=== PATIENT | female | born 1955 | race Caucasian/White ===

== ENCOUNTER 2018-01-17 06:32 | Outpatient (CLI) | payer MEDICARE ==
[~2018-01-17] VITALS: Ht 157.5 cm; Wt 55.5 kg
--- NOTE | ~2018-01-17 | HEMODYNAMI ---
PATIENT:ALISIA GOMES MEDICAL RECORD: [id number] : 51 [facility] Francisco[facility]14[facility]# [id number] ADMISSION DATE: 01/17/18 Generatedon:01/17/201813:39 Patient name: ALISIA GOMES Patient #: [id number] SSN: : 1955 Date of study: 01/17/2018 Page: Of Hemodynamic Procedure Report Patient Data Patient Demographics Procedure consent was obtained First Name: ALISIA Gender: Female Last Name: ELISEO : 1955 Patient #: [id number] Age: 62 year(s) Race: Unknown Additional ID: [id number] Contact details Address: [address] [place] [address] State: [place] City: [place] Zip code: [address] Past Medical History Allergies Allergen Reaction Date Comments Reported Sulfa drugs 01/17/2018 Admission Admission Data Admission Date: 01/17/2018 Admission Time: 9:23 Room #: E14 Procedure Procedure Types Cath Procedure Diagnostic Procedure [facility] w/Coronaries Sedation Charges Moderate Sedation up to 15 minutes Peripheral Cath Diagnostic Procedure Cath Peripheral Haeij-Bdmegts-Hle-Off Peripheral vascular Intervention Stent Stent-Fem/Popw/plasty Procedure Description Procedure Date Procedure Date: 01/17/2018 Procedure Start Time: 13:17 Procedure End Time: 13:38 Procedure Staff Name Function Andre Lanier MD Performing Physician Calista López RT Monitor Amy Webb RT Scrub Agustín Pappas RN Nurse Procedure Data Cath Procedure Fluoroscopy Diagnostic fluoroscopy Total fluoroscopy Time: 5.8 time: 5.8 min min Diagnostic fluoroscopy Total fluoroscopy dose: 228 dose: 228 mGy mGy Contrast Material Contrast Material Type Amount (ml) Isovue 300 122 Entry Location Entry Primary Successful Side Size Upsize Upsize Entry Closure Succes sful Closure Location (Fr) 1 (Fr) 2 (Fr) Remarks Device Remarks Femoral Right 6 Fr 6 Fr 6 Fr Exoseal artery Short Long Short Estimated blood loss: 5 ml Diagnostic catheters Device Type Used For End Catheter Placement MULTIPACK Pigtail 5 Fr LV Angiography catheter MULTIPACK Pigtail 5 Fr Abdominal catheter aortogram with runoff MULTIPACK JL 4.0 5Fr Left Coronary catheter Angiography MULTIPACK 3DRC 5Fr Right Coronary catheter Angiography DIAGNOSTIC IMT 5Fr Procedure Catheter ([id number]) Procedure Complications No complications Procedure Medications Medication Administration Route Dosage 0.9% NaCl I.V. 100 ml/hr Oxygen etCO2 Nasal cannula 2 l/min Heparin Flush Bag added to field 2 bags (1000units/500ml NS) Lidocaine 2% added to field 20 Versed I.V. 1 mg Fentanyl I.V. 50 mcg Versed I.V. 1 mg Fentanyl I.V. 50 mcg Heparin Bolus I.V. 4000 units Hemodynamics Rest Pre Cath Intra NCS Post Cath Vital Signs Time Heart Resp SPO2 etCO2 NIBP (mmHg) Rhythm Pain Sedation Rate (ipm) (%) (mmHg) Status Level (bpm) 13:12:27 68 13 98 33.2 128/75(101) NSR 0 (11) 10(A) , No pain 13:17:06 76 13 99 23.4 114/62(83) NSR 0 (11) 10(A) , No pain 13:21:38 71 17 98 0 115/66(88) NSR 0 (11) 10(A) , No pain 13:26:11 70 19 99 0 116/69(87) NSR 0 (11) 9(A) , No pain 13:30:47 72 11 99 0.7 112/61(84) NSR 0 (11) 9(A) , No pain 13:35:24 78 12 98 21.8 103/56(89) NSR 0 (11) 9(A) , No pain Medications Time Medication Route Dose Verified Delivered Reason Notes Effectiveness by by 13:09:28 0.9% NaCl I.V. 100 Agustín Agsutín Per physician ml/hr Elyse Pappas RN RN 13:09:38 Oxygen etCO2 2 Agustín Agustín Per physician Nasal l/min Elyse Pappas cannula RN RN 13:09:47 Heparin Flush added 2 Agustín Agustín used for Bag to bags Elyse Pappas procedure (1000units/500ml field DOE RN NS) 13:10:00 Lidocaine 2% added 20ml Agustín Agustín for local to vial Lorigan Elyse anesthetic field BROOK RN 13:16:22 Versed I.V. 1 mg Agustín Agustín for sedation Elyse Pappas RN RN 13:16:30 Fentanyl I.V. 50 Agustín Agustín for sedation mcg Elyse Pappas RN, RN 13:17:35 Versed I.V. 1 mg Agustín Agustín for sedation Elyse Pappas RN RN 13:17:39 Fentanyl I.V. 50 Agustín Agustín for sedation mcg Elyse Pappas RN, RN 13:24:48 Heparin Bolus I.V. 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 12:49:58 Signed procedure consent form obtained from patient. 12:50:03 H&P Date Dictated: 01/17/2018 ER History on chart.. 12:52:02 Calista López RT(R) sent for patient. Start room use. 13:00:19 Patient received from ED to CCL 1 Alert and oriented. Tansferred to table in Supine position. 13:09:28 0.9% NaCl 100 ml/hr I.V. was administered by Agustín Pappas RN; Per physician; 13:09:38 Oxygen 2 l/min etCO2 Nasal cannula was administered by Agustín Pappas RN; Per physician; 13:09:47 Heparin Flush Bag (1000units/500ml NS) 2 bags added to field was administered by Agustín Pappas RN; used for procedure; 13:10:00 Lidocaine 2% 20ml vial added to field was administered by Agustín Pappas RN; for local anesthetic; 13:11:38 Warm blankets applied, and elvia hugger turned on for patient comfort. 13:11:39 Correct patient and procedure confirmed by team. 13:11:40 ECG and BP/O2 sat monitors applied to patient. 13:11:41 Vital chart was started 13:11:41 Full Disclosure recording started 13:11:44 Rhythm: sinus rhythm 13:11:46 Pre-procedure instructions explained to patient. 13:11:47 Pre-op teaching completed and patient verbalized understanding. 13:11:50 Family unavailable. 13:11:51 Patient NPO since Midnight. 13:12:02 Patient allergic to Sulfa drugs 13:12:04 Is the patient allergic to Iodine/contrast media? No. 13:12:12 Is patient on blood thinner?Yes 13:12:14 ACC The patient was administered the following blood thiners within the last 24 hours: ACCPlavix 13:12:17 Patient diabetic? No. 13:12:20 Previous problem with sedation/anesthesia? No ? 13:12:22 Snore? No 13:12:23 Sleep apnea? No 13:12:25 Deviated septum? No 13:12:25 Opens mouth fully? Yes 13:12:26 Sticks out tongue? Yes 13:12:31 Airway obstruction? Yes COPD 13:12:36 Dentures? No ? 13:12:39 Pre procedure: right dorsailis pedis pulse 2+ Normal; easily identifiable; not easily obliterated 13:12:41 Patient pain scale 0/10 ?. 13:12:48 IV patent on arrival in right forearm with 0.9% NaCl at O. 13:12:50 Lab results completed and on chart. 13:12:53 Alarms reviewed by R. N. 13:12:54 Sharps counted by scrub and verified by R.N. 13:13:00 Use device set Femoral Dx 13:13:01 ACIST Syringe (64204) opened to sterile field. 13:13:01 Bag Decanter (2002S) opened to sterile field. 13:13:02 Medline Cath Pack ([id number]) opened to sterile field. 13:13:02 DIAGNOSTIC WIRE .035 260cm J wire ([id number]) opened to sterile field. 13:13:03 ACIST Hand Control (03272) opened to sterile field. 13:13:04 ACIST Manifold (04402) opened to sterile field. 13:13:04 DIAGNOSTIC Multipack 5Fr catheter set ([id number]) opened to sterile field. 13:13:05 Tegaderm 4 x 4 (1626W) opened to sterile field. 13:15:37 Final Timeout: patient, procedure, and site verified with staff and physician. All members of the team are in agreement. 13:15:39 Right groin site verified by team. 13:15:42 Physical assessment completed. ASA score P 2 - A patient with mild systemic disease as per Andre Lanier MD. 13:15:46 Sedation plan: IV Moderate Sedation Medication:Versed, Fentanyl 13:15:50 Zero performed for pressure channel P1 13:16:22 Versed 1 mg I.V. was administered by Agustín Pappas RN; for sedation; 13:16:30 Fentanyl 50 mcg I.V. was administered by Agustín Pappas RN; for sedation; 13:17:32 Procedure started. 13:17:35 Versed 1 mg I.V. was administered by Agustín Pappas RN; for sedation; 13:17:35 Local anesthetic to right femoral artery with Lidocaine 2% by Andre Lanier MD.INITIAL ACCESS ONLY 13:17:39 Fentanyl 50 mcg I.V. was administered by Agustín Pappas RN; for sedation; 13:18:15 A 6 Fr Short sheath was inserted into the Right Femoral artery 13:18:27 SHEATH Prelude 6Fr 0.035 ([id number]-9X-41-035) opened to sterile field. 13:18:56 A MULTIPACK Pigtail 5 Fr catheter was advanced over the wire and used for LV Angiography. 13:19:16 LV gram done using SETHI 13:19:23 EF : 55 % 13:19:25 Injector settings: Ml/sec: 10, Volume: 20, 13:19:30 A MULTIPACK Pigtail 5 Fr catheter was advanced over the wire and used for Abdominal aortogram with runoff. 13:20:07 Catheter removed. 13:20:19 A MULTIPACK JL 4.0 5Fr catheter was advanced over the wire and used for Left Coronary Angiography. 13:20:25 Use device set TAU PCI 13:20:29 INFLATOR Merit BasixCompak (YY8638) opened to sterile field. 13:20:44 SHEATH 6FR Destination (RSR01) opened to sterile field. 13:21:03 GLIDE WIRE Super Stiff Angled 260cm (MT2933) opened to sterile field. 13:21:52 Catheter removed. 13:22:01 A MULTIPACK 3DRC 5Fr catheter was advanced over the wire and used for Right Coronary Angiography. 13:23:04 Catheter removed. 13:24:13 SS GLIDE WIRE wire advanced. 13:24:48 Heparin Bolus 4000 units I.V. was administered by Agustín Pappas RN; for anticoagulation; 13:25:26 A DIAGNOSTIC IMT 5Fr Catheter ([id number]) was advanced over the wire and used for Procedure. 13:25:41 WIRE ADVANCED DOWN LSFA 13:25:46 Catheter exchanged over wire. 13:25:52 Sheath upsized to a 6 Fr Long. 13:27:04 CHOICE PT Extra Support J 300cm guide wire ([id number]) opened to sterile field. 13:28:07 Procedure type changed to Cath procedure, Diagnostic procedure, LHC, LHC w/Coronaries, Sedation Charges, Moderate Sedation up to 15 minutes, Peripheral Cath Diagnostic Procedure, Cath Peripheral, Xdkjl-Ntuphzw-Row-Off, Peripheral vascular Intervention, Stent, Stent-Fem/Popw/plasty 13:28:29 CHOICE PT ES wire advanced. 13:29:36 Inflate balloon Inflation number: 1 A SABER 5.0 X 4 X 150 balloon ([id number]) was prepped and advanced across the Proximal Superficial Femoral, Left, then inflated to 9 WIN for 0:09 (min:sec). 13:29:47 Balloon removed over the wire. 13:32:26 SMART 6 X 40 X 120 stent ([id number]) was deployed across Proximal Superficial Femoral, Left . 13:32:31 Stent catheter was removed intact over wire. 13:33:27 Inflation number: 2 The SABER 5.0 X 4 X 150 balloon ([id number]) was reinflated across the Proximal Superficial Femoral, Left, to 11 WIN for 0:06 (min:sec). 13:33:29 Balloon removed over the wire. 13:33:37 EXOSEAL 6Fr (EX600) opened to sterile field. 13:33:56 Wire removed. 13:34:09 Sheath upsized to a 6 Fr Short. 13:34:18 Sheath removed intact; hemostasis achieved with Exoseal to the Right Femoral artery. 13:34:21 Procedure ended.(Physican Out) 13:34:36 Fluoroscopy time 05.80 minutes. 13:34:42 Flurop Dose total: 228 13:34:42 Fluoroscopy dose: 228 mGy 13:35:02 Contrast amount:Isovue 300 122ml. 13:35:03 Sharps counted by scrub and verified by R.N. 13:35:06 Insertion/operative site no bleeding no hematoma. 13:35:08 Post-op/insertion site Right Femoral artery dressed using a 4 x 4 and Tegaderm. 13:35:11 Post right femoral artery:stable, clean and dry 13:35:13 Post Procedure Pulses reassessed and unchanged 13:35:16 Post-procedure physical assessment completed. ASA score P 2 - A patient with mild systemic disease as per Andre Lanier MD. 13:35:18 Post procedure rhythm: unchanged. 13:35:20 Estimated blood loss: 5 ml 13:35:21 Post procedure instruction explained to patient.Patient verbalizes understanding. 13:35:22 Patient needs reinforcement of post procedure teaching. 13:35:27 Procedure Complication : No complications 13:35:29 See physician's report for complete and final results. 13:38:11 Procedure and supply charges have been captured, reviewed, submitted and are correct. 13:38:13 Vital chart was stopped 13:38:18 Report given to Pre/Post Procedure Room. 13:38:21 Patient transfered to Pre/Post Procedure Room with Stretcher. 13:38:44 Procedure ended. 13:38:44 Full Disclosure recording stopped 13:38:49 End room use (Document Last) Intervention Summary Intervention Notes Time ActionType Lesion and Equipment Action# Pressure Duration Attributes Used 13:29:36 Inflate Proximal SABER 5.0 X 1 9 00:09 balloon Superficial 4 X 150 Femoral, balloon Left ([id number]) 13:32:26 Deploy self Proximal SMART 6 X 1 expanding Superficial 40 X 120 stent Femoral, stent Left ([id number]) 13:33:27 Reinflate Proximal SABER 5.0 X 2 11 00:06 balloon Superficial 4 X 150 Femoral, balloon Left ([id number]) Device Usage Item Name Manufacture Quantity Catalog Number Hospital Part Current Minimal Lot# / Charge Number Stock Stock Serial# Code ACIST Syringe Acist 1 85528 208067 503004 [id number] 20 (47240) [employer] Bag Decanter Microtek 1 020265 38946 534993 5 () Medical Inc. Medline Cath Cardinal 1 [id number] 711462 83168 136566 5 [facility] Health ([id number]) DIAGNOSTIC WIRE [facility] 1 532804 368498 063165 716589 30 .035 260cm J wire (504153) ACIST Hand Acist 1 31801 942808 526762 649278 5 Control (72630) [employer] Inc ACIST Manifold Acist 1 35517 303498 700799 543332 5 (97460) [employer] Inc DIAGNOSTIC Cardinal 1 MC4775 391653 91552 622437 30 Multipack 5Fr Health catheter set (QY1909) Tegaderm 4 x 4 3M 1 1626W 996550 505477 488981 5 (1626W) SHEATH Prelude Merit 1 [id number]-[id number] 660662 0693802 877720 5 6Fr 0.035 Medical (QLR-5B-88-035) MULTIPACK Cardinal 1 834665 5 Pigtail 5 Fr Health catheter MULTIPACK JL Cardinal 1 096159 5 4.0 5Fr Health catheter INFLATOR Merit Merit 1 CP0899 454818 407057 784411 15 [employer] Medical (IR3231) SHEATH 6FR Terumo 1 RSR01 991495 34976 662023 5 Destination (RSR01) GLIDE WIRE Terumo 1 NR3711 353767 277737 142611 5 Super Stiff Angled 260cm (ZK7791) MULTIPACK 3DRC Cardinal 1 187470 5 5Fr catheter Health DIAGNOSTIC IMT [place] 1 [id number] 471594 968403 48866 5 5Fr Catheter Scientific ([id number]) CHOICE PT Extra [place] 1 [id number] 457918 517881 861550 5 Support J 300cm Scientific guide wire ([id number]) SABER 5.0 X 4 X Cardinal 1 [id number] 743645 268924 5 150 balloon Health ([id number]) SMART 6 X 40 X Cardinal 1 [id number] 889479 922804 0 120 stent Health ([id number]) EXOSEAL 6Fr Cardinal 1 EX600 192633 804295 106299 10 (EX600) Health Signature Audit Marianna Stage Time Signature Unsigned Intra-Procedure 01/17/2018 Calista 1:39:00 PM Counts RT(R) Signatures Monitor : Calista Signature : Counts RT Date : Time : [facility] [address] [place] [address]
--- NOTE | ~2018-01-17 | OP ---
PATIENT NAME: ALISIA GOMES MEDICAL RECORD: [id number] :51 LOCATION:D.OPS ADMISSION DATE: SURGEON: CLARA PALACIOS MD DATE OF OPERATION: 01/17/2018 PROCEDURES: 1. Stent placement SFA, left. 2. RENDERING EQUIPMENT TENDER SFA, left. 3. Aortofemoral runoff. 4. Abdominal aortography. INDICATION: Claudication and peripheral vascular disease. PROCEDURE PERFORMED: After informed consent was obtained and after a detailed description of risks, benefits as well as alternative therapies, the patient elected to proceed with angiogram and angioplasty. The right femoral area had a preexisting sheath from cardiac catheterization. All catheters exchanged through this sheath. FINDINGS: Abdominal aortography was performed. The catheter was pulled down for aortofemoral runoff. Abdominal aortography reveals no significant abdominal aortic disease, no dissection or aneurysm formation. No renal artery stenosis. RIGHT LEG: A. Iliac: The common internal and external iliacs have moderate irregularities, but no flow-limiting stenosis. B. Femoral system: The common and deep femoral are widely patent. Superficial femoral has at least 80% stenosis throughout the mid vessel. C. Popliteal and infrapopliteal vessels are patent with good 3-vessel runoff to the foot. LEFT LEG: A. Iliac: The common internal and external iliacs have moderate irregularities, but no flow-limiting stenosis. B. Femoral system: The common and deep femoral are widely patent. Superficial femoral has 95% stenosis in the proximal aspect. C. Popliteal and infrapopliteal vessels are patent giving good 3-vessel runoff to the foot. RENDERING EQUIPMENT TENDER STENT OF THE LEFT SFA: The balloon used was a 5.0 balloon. This yielded suboptimal result with severe intimal dissection. Stenting was undertaken with a 6 x 40 SMART stent. Result was 0% residual stenosis. OVERALL IMPRESSION: Successful RENDERING EQUIPMENT TENDER stent of the left SFA going from 95% initial stenosis to 0% residual. TRANSINT:[id number] Voice Confirmation ID: [id number] DOCUMENT ID: [id number] OPERATIVE REPORT [id number] ELISEOCLARA BARGER MD at 1101 CC: [id number] DICTATION DATE: 01/17/18 1343 SUPERVISOR LIME: 01/17/18 1359 DEP CLI 01/17/18 [place] [address]
--- NOTE | ~2018-01-17 | CN ---
PATIENT NAME:ALISIA YOUSSEF MEDICAL RECORD: [id number] : 51 LOCATION:D.OPS ADMIT DATE: ACCOUNT: [id number] CONSULTING PHYSICIAN: CLARA PALACIOS MD REFERRING PHYSICIAN: JUAN DANIEL TAVAREZ MD DATE OF CONSULTATION: 01/17/2018 DIAGNOSES: 1. Unstable angina. 2. Coronary artery disease. 3. Peripheral vascular disease. 4. Claudication. 5. COPD. 6. Smoking. HISTORY OF PRESENT ILLNESS: Ms. Youssef presents with 2 days of increasing chest pain that has actually been going on since June in an intermittent fashion; however, it has worsened in the past 2 days. She has a cardiac catheterization in the distant past, but no intervention. She was set for cardiac catheterization on February 12 in [place]. She has a history of peripheral vascular disease, has a black toe on the left leg. She had an aortofemoral runoff and she was told she had significant disease, but nothing was fixed at that time. She is not on aspirin or Plavix. PHYSICAL EXAMINATION: GENERAL APPEARANCE: Well-nourished, well-developed, appears stated age. Level of distress, comfortable. PSYCHIATRIC: Mental status, alert, normal affect. Orientation, oriented to time, place and person. EYES: Lids and conjunctiva, noninjected. No discharge, no pallor. ENT: Lips, teeth, gums, normal dentition. Oropharynx, no cyanosis, no pallor. NECK: Carotid arteries, bilateral normal upstroke, no bruits, no thrills. JUGULAR VEINS: No jugular venous pressure or distention. CERVICAL LYMPH NODES: Nontender, nonenlarged. THYROID: Not enlarged. Nontender. No nodules. LUNGS: Respiratory effort, unlabored. CHEST: Normal curvature. No thoracic deformity. No chest wall tenderness. Percussion, resonant. Auscultation, clear. No wheezes, no rales, no rhonchi. CARDIOVASCULAR: Precordial exam, nondisplaced. No heaves or pericardial thrills. Rate and rhythm, regular. Heart sounds, normal S1, normal S2. No S3, no gallop, no rub. Systolic murmur, not heard. Diastolic murmur, not heard. EXTREMITIES: No cyanosis, no edema. Peripheral pulses, full and equal in all extremities, except as noted. No bruits appreciated. ABDOMEN: Soft, nondistended. Normal aorta. No bruit. Nontender. No masses. Liver, nontender, no hepatomegaly. Spleen, nontender, no splenomegaly. MUSCULOSKELETAL: No joint tenderness. No joint swelling. No erythema. NEUROLOGICAL: Normal gait, normal strength, normal tone. SKIN: Warm and dry. OVERALL IMPRESSION: Most likely, she has hemodynamically significant coronary artery disease and this is unstable angina. No doubt she has hemodynamically significant peripheral vascular disease, unsure why no intervention was undertaken. We will do aortofemoral runoff as well as cardiac catheterization. Further care depends upon the findings of these studies. CONSULT REPORT [id number] ALISIA YOUSSEF TRANSINT:[id number] Voice Confirmation ID: [id number] DOCUMENT ID: [id number] CLARA PALACIOS MD at 1100 CC: [id number] DICTATION DATE: 01/17/18 1020 APARTMENT MAINTENANCE SUPERVISOR: 01/17/18 1041 DEP CLI 01/17/18 [place] [id number] [place] [address]
--- NOTE | ~2018-01-17 | OP ---
PATIENT NAME: ALISIA GOMES MEDICAL RECORD: [id number] :51 LOCATION:[facility] ADMISSION DATE: SURGEON: CLARA PALACIOS MD DATE OF OPERATION: 01/17/2018 PROCEDURES: 1. Left heart catheterization. 2. Selective coronary angiography. 3. Left ventriculogram. INDICATION: Chest pain compatible with angina. PROCEDURE IN DETAIL: After informed consent was obtained and after a detailed description of risks, benefits as well as alternative therapies, the patient elected to proceed with angiogram and angioplasty. The right femoral area was prepped and draped in normal sterile fashion. The right femoral artery was cannulated via modified Seldinger technique with placement of 6-German sheath. All catheters exchanged through this sheath. FINDINGS: Left ventriculogram was performed in standard 30-degree SETHI view, reveals good cardiac wall motion throughout all segments. Overall ejection fraction estimated 60%. SELECTIVE CORONARY ANGIOGRAPHY: Left main, left anterior descending, left circumflex, right coronary artery are all smooth-walled vessels with no angiographic evidence of coronary artery disease. OVERALL IMPRESSION: 1. No angiographic evidence of coronary artery disease. 2. Normal left heart pressures. 3. Normal left ventricular systolic function. Chest pain is noncardiac in etiology. No other cardiac workup needs to be ascertained. TRANSINT:[id number] Voice Confirmation ID: [id number] DOCUMENT ID: [id number] CLARA PALACIOS MD at 1101 CC: [id number] DICTATION DATE: 01/17/18 1343 LIFE SCIENCE TEACHER: 01/17/18 1359 DEP CLI 01/17/18 [place] [id number]
[2018-01-17 06:41] VITALS: BP 138/96; Ht 157.5 cm; Wt 55.5 kg
[2018-01-17 08:07] LABS: APTT 22.2 SECONDS (22.8-39.4)
[2018-01-17 08:09] LABS: BASOPHILS 0.2 % (0-2); EOSINOPHILS 1.1 % (0-7); HEMATOCRIT 39.2 % (36.0-48.0); HEMOGLOBIN 12.3 g/dL (12-16); IMMATURE GRANULOCYTES 0.7 % (0-5); LYMPHOCYTES 28.8 % (15-50); MCH 29.6 pg (26.0-34.0); MCHC 31.4 g/dL (31.0-37.0); MCV 94.5 fL (80.0-100.0); MEAN PLATELET VOLUME 9.1 fL (7.4-10.4); NEUTROPHILS 57.2 % (40-80); PLATELET COUNT 279 10x3/uL (130-400); RBC 4.15 10x6/uL (4.00-5.40); RDW 13.9 % (11.5-14.5); WBC 8.1 10x3/uL (4.8-10.8)
[2018-01-17 08:09] LABS: ALBUMIN 3.3 g/dL (3.4-5.0); ALKALINE PHOSPHATASE 78 U/L (46-116); ALT (SGPT) 25 U/L (10-68); BILIRUBIN - TOTAL 0.19 mg/dL (0.2-1.3); CALC OSMOLALITY 289 mosm/kg (275-300); CALCIUM 9.3 mg/dL (8.5-10.1); CARBON DIOXIDE 32.1 mmol/L (21.0-32.0); CHLORIDE - SERUM 107 mmol/L (98-107); CREATININE - SERUM 0.8 mg/dL (0.6-1.3); D-DIMER-QUANTITATIVE 0.53 ug/mLFEU (0.20-0.54); GLUCOSE 96 mg/dL (74-106); POTASSIUM - SERUM 3.7 mmol/L (3.5-5.1); PROTEIN - SERUM 7.3 g/dL (6.4-8.2); SODIUM 144 mmol/L (136-145); UREA NITROGEN 20 mg/dL (7-18); eGFR NON AFRICAN AMERICAN 76 mL/min (90-120)
[2018-01-17 08:12] LABS: CREATINE KINASE 29 UL (21-215); MAGNESIUM - SERUM 2.3 mg/dL (1.8-2.4)
[2018-01-17 08:13] LABS: TROPONIN-I < 0.017 ng/mL (0.000-0.060)
[2018-01-17 08:25] LABS: INR 0.81 (0.85-1.17); PROTIME 10.8 SECONDS (11.6-15.0)
[2018-01-17] MEDS ORDERED: PREDNISONE10 MG PO (14:19)
[2018-01-17] MEDS ORDERED: PROTONIX20 MG PO (14:20)
[2018-01-17] MEDS ORDERED: NORVASC2.5 MG PO (14:20)
[2018-01-17] MEDS ORDERED: TRELEGY INH (14:21)
[2018-01-17] MEDS ORDERED: PLAVIX75 MG PO (15:07)
[2018-01-17] MEDS ORDERED: BAYER CHEWABLE81 MG PO (15:08)
[2018-01-17] MEDS ORDERED: FUROSEMIDE20 MG PO (15:08)
[2018-01-17] MEDS ORDERED: POTASSIUM CHLO10 ME1 PO (15:08)
== END 2018-01-17 17:35 | disposition home or self-care (01) ==
LOC: OBSVTIME → D.ER 06:32 → D.OPS 06:32 → D.ER 09:23 → D.EDHOLD 09:23 → OBSVTIME 09:23 → D.EDHOLD 09:23 → EDSTATUS 10:45 → D.ER 12:55 → D.EDHOLD 17:35 → D.OPS 17:35
PROVIDERS: Emergency Medicine; Family Medicine
DX: I70.212 Atherosclerosis of native arteries of extremities with intermittent claudication, left leg (principal); R07.89 Other chest pain; J44.9 Chronic obstructive pulmonary disease, unspecified; Z72.0 Tobacco use

== ENCOUNTER 2018-08-22 12:53 | Emergency (ER) | payer MEDICARE ==
[~2018-08-22] VITALS: Ht 157.5 cm; Wt 55.9 kg
[~2018-08-22 12:53] MED LIST: BAYER CHEWABLE81 MG PO; FUROSEMIDE20 MG PO; NORVASC2.5 MG PO; PLAVIX75 MG PO; POTASSIUM CHLO10 ME1 PO; PREDNISONE10 MG PO; PROTONIX20 MG PO; TRELEGY INH
[2018-08-22 13:08] VITALS: Ht 157.5 cm; Wt 55.9 kg
[2018-08-22 13:39] LABS: BASOPHILS 0.1 % (0-2); EOSINOPHILS 0.8 % (0-7); HEMATOCRIT 45.6 % (36.0-48.0); HEMOGLOBIN 14.4 g/dL (12-16); IMMATURE GRANULOCYTES 0.4 % (0-5); LYMPHOCYTES 10.8 % (15-50); MCH 29.3 pg (26.0-34.0); MCHC 31.6 g/dL (31.0-37.0); MCV 92.7 fL (80.0-100.0); MEAN PLATELET VOLUME 9.4 fL (7.4-10.4); MONOCYTES 9.1 % (2-11); NEUTROPHILS 78.8 % (40-80); PLATELET COUNT 299 10x3/uL (130-400); RBC 4.92 10x6/uL (4.00-5.40); RDW 14.6 % (11.5-14.5); WBC 11.8 10x3/uL (4.8-10.8)
[2018-08-22 13:57] LABS: ALBUMIN 3.8 g/dL (3.4-5.0); ANION GAP 14.4 mmol/L (8-16); BILIRUBIN - TOTAL 0.38 mg/dL (0.2-1.3); CALCIUM 9.6 mg/dL (8.5-10.1); CARBON DIOXIDE 26.5 mmol/L (21.0-32.0); POTASSIUM - SERUM 3.9 mmol/L (3.5-5.1); PROTEIN - SERUM 8.8 g/dL (6.4-8.2)
[2018-08-22 14:10] LABS: AMYLASE - SERUM 65 U/L (25-115); LIPASE 113 U/L (73-393)
[2018-08-22 15:33] LABS: APPEARANCE CLEAR (CLEAR); COLOR STRAW (YELLOW)
[2018-08-22 15:34] LABS: BILIRUBIN NEGATIVE (NEGATIVE); GLUCOSE NEGATIVE (NEGATIVE); KETONE NEGATIVE (NEGATIVE); NITRITE NEGATIVE (NEGATIVE); PROTEIN NEGATIVE (NEGATIVE); UROBILINOGEN NORMAL (NORMAL)
[2018-08-22] MEDS ORDERED: TAMIFLU75 MG PO (16:16)
[2018-08-22] MEDS ORDERED: ZOFRAN ODT4 MG/UDTAB PO (16:17)
[2018-08-22 16:35] VITALS: BP 131/66
== END 2018-08-22 16:36 | disposition home or self-care (01) ==
LOC: D.ER 12:53
PROVIDERS: Emergency Medicine
DX: J11.1 Influenza due to unidentified influenza virus with other respiratory manifestations (principal); R19.7 Diarrhea, unspecified; R11.2 Nausea with vomiting, unspecified

== ENCOUNTER 2018-10-07 04:54 | Inpatient (IN) | payer MEDICARE ==
[~2018-10-07] VITALS: Ht 157.5 cm; Wt 51.7 kg
[~2018-10-07 04:54] MED LIST changes: +TAMIFLU75 MG PO; +ZOFRAN ODT4 MG/UDTAB PO
[2018-10-07 05:49] LABS: BASOPHILS 0 % (0-2); EOSINOPHILS 0.1 % (0-7); HEMATOCRIT 41.6 % (36.0-48.0); HEMOGLOBIN 13.3 g/dL (12-16); IMMATURE GRANULOCYTES 0.4 % (0-5); LYMPHOCYTES 13.4 % (15-50); MCH 29.4 pg (26.0-34.0); MEAN PLATELET VOLUME 9.8 fL (7.4-10.4); MONOCYTES 13.5 % (2-11); NEUTROPHILS 72.6 % (40-80); PLATELET COUNT 244 10x3/uL (130-400); RBC 4.52 10x6/uL (4.00-5.40); RDW 14.3 % (11.5-14.5)
--- NOTE | 2018-10-07 06:13 | NUR ---
PT ASSISTED ONTO BEDPAN AT THIS TIME.
--- NOTE | 2018-10-07 06:15 | NUR ---
PT HR ELEVATED AT THIS TIME. VERBAL ORDER FOR REPEAT EKG GIVEN AT THIS TIME.
[2018-10-07 06:19] LABS: APTT 23.3 SECONDS (22.8-39.4); INR 0.96 (0.85-1.17); PROTIME 12.3 SECONDS (11.6-15.0)
[2018-10-07 06:26] LABS: ALBUMIN 3.6 g/dL (3.4-5.0); ALKALINE PHOSPHATASE 91 U/L (46-116); ALT (SGPT) 23 U/L (10-68); BILIRUBIN - TOTAL 0.29 mg/dL (0.2-1.3); CALC OSMOLALITY 277 mosm/kg (275-300); CALCIUM 9.3 mg/dL (8.5-10.1); CARBON DIOXIDE 31.6 mmol/L (21.0-32.0); CHLORIDE - SERUM 98 mmol/L (98-107); CKMB 0.8 U/L (0.0-3.6); CREATINE KINASE 46 UL (21-215); GLUCOSE 103 mg/dL (74-106); PRO BNP 430 pg/mL (0-125); PROTEIN - SERUM 8.2 g/dL (6.4-8.2); SODIUM 139 mmol/L (136-145); TROPONIN-I < 0.017 ng/mL (0.000-0.060); UREA NITROGEN 13 mg/dL (7-18); eGFR NON AFRICAN AMERICAN 59 mL/min (90-120)
--- NOTE | 2018-10-07 06:29 | NUR ---
ROCEPHIN INFUSION COMPLETE AT THIS TIME.
--- NOTE | 2018-10-07 06:37 | NUR ---
PT HR 101 AT THIS TIME. ROB LOVE GAVE VERBAL ORDER TO DC LOPRESSOR ORDER.
[2018-10-07 06:42] LABS: POTASSIUM - SERUM 2.9 mmol/L (3.5-5.1)
[2018-10-07 06:45] VITALS: BP 149/74
--- NOTE | 2018-10-07 07:53 | NUR ---
ZITHROMAX INFUSION COMPLETE AT 0730AM.
[2018-10-07 08:00] VITALS: BP 123/71
[2018-10-07 08:28] VITALS: BP 118/67; BMI 22.9
--- NOTE | 2018-10-07 08:52 | NUR ---
PT RESTING QUIETLY, BIPAP IN PLACE. PT ABLE TO NOD YES OR NO TO MOST QUESTIONS ASKED DURING ASSESSMENT AND HISTORY. SPOUSE PRESENT AT BEDSIDE AND ABLE TO ANSWER QUESTIONS.
[2018-10-07 10:00] VITALS: BP 111/69
--- NOTE | 2018-10-07 11:10 | NUR ---
RT AT BEDSIDE FOR ABG PER DR. GUNDERSON, BI-PAP REMOVED PATIENT PLACED ON 2LTRS VIA N/C.
[2018-10-07 12:00] VITALS: BP 132/73
--- NOTE | 2018-10-07 14:43 | MORECARE ---
CASE MANAGEMENT DISCHARGE SUMMARY PATIENT: ALISIA YOUSSEF UNIT: [id number] ADM DATE: 10/07/18 AGE: 63 : 51 SEX: F ROOM/BED: D.8540 AUTHOR: MOUNADOC PHYSICIAN: REFERRING PHYSICIAN: CROW GUNDERSON MD DATE OF SERVICE: 10/07/18 Discharge Plan Patient Name: ALISIA YOUSSEF Facility: [facility]:[place] : 1955 Planned Disposition: Home Anticipated Discharge Date: 10/09/18 Discharge Date: Expected LOS: 2 Initial Reviewer: [email or web address] Initial Review Date: 10/07/2018 Generated: 10/07/18 3:43 pm DCP- Discharge Planning Updated by [email or web address]: Julianna Montalvo on 10/07/18 1:[address] Patient Name: ALISIA YOUSSEF Admission Status: ER Accout number: [id number] Admission Date: 10-07-2018 : 1955 Admission Diagnosis: Attending: CROW GUNDERSON Current LOS: 1 Anticipated DC Date: 10-09-2018 Planned Disposition: Home Primary Insurance: [employer] ADV Discharge Planning Comments: CM met with patient and her to complete initial dc planning assessment. CM educated patient and her on the CM role and verbal consent given by patient to complete assessment. Patient lives at home with her and is independent in her care at home. At discharge patient plans to return with her and feels this is a safe discharge. CM discussed availability of home health, rehab services, and medical equipment. Patient denied known discharge needs at this time. CM will continue to follow and will assist as needed with dc plans/needs. Service Rig Operator: Julianna Montalvo RN, [facility] DCPIA - Discharge Planning Initial Assessment Updated by [email or web address]: Julianna Montalvo on 10/07/18 2:36 pm * Is the patient Alert and Oriented? Yes * How many steps to enter\exit or inside your home? * PCP Dr. Estrada * Pharmacy [facility] * Preadmission Environment Home with Family * ADLs Independent * Equipment Nebulizer * List name and contact numbers for known caregivers / representatives who currently or will assist patient after discharge: Raulito Youssef - [phone] * Verbal permission to speak to the caregivers and representatives has been obtained from the patient. Yes * Community resources currently utilized None * Additional services required to return to the preadmission environment? No * Can the patient safely return to the preadmission environment? Yes * Has this patient been hospitalized within the prior 30 days at any hospital? No Patient Name: ALISIA YOUSSEF Page [id number] at 1443 All edits/amendments must be made on the electronic document DICTATION DATE: 10/07/18 1442 WELL FLOW OPERATOR: ERIK 10/07/18 1442 RPT#: [id number] DC DATE: STATUS: ADM IN [facility] [address] [place] [address] END OF REPORT
--- NOTE | 2018-10-07 15:45 | NUR ---
PATIENT ARRIVED TO THE FLOOR VIA WHEELCHAIR. 2 L OF O2 NOTED. IV SALINED LOCKED IN RIGHT ARM WITH NO COMPLAINTS OF PAIN AND OR DISCOMFPRT. BED IN LOW POSTITION AND CALL LIGHT IS IN REACH. PATIENT DENIES ANY NEEDS AT THIS TIME AND REQUESTS TO BE LEFT ALONE SO THAT SHE CAN REST.
[2018-10-07 17:13] VITALS: BMI 22.5
--- NOTE | 2018-10-07 19:30 | NUR ---
ROUNDS COMPLETED. VSS, AAOX4. NO S/S OF RR DISTRESS. RR EVEN AND UNLABORED. PT RESTING IN BED WITH EYES OPEN. PT STATES SHE HAS BEEN SLEEPING ALL DAY. DENIES ANY FURTHER NEEDS AT THIS TIME. WILL CPOC. CL IN REACH, BED IN LOW, SR UP X2.
[2018-10-07 20:00] VITALS: BP 121/59
[2018-10-08] VITALS: BP 116/50
[2018-10-08 04:00] VITALS: BP 138/72
[2018-10-08 05:48] LABS: BASOPHILS 0.1 % (0-2); EOSINOPHILS 0 % (0-7); HEMATOCRIT 40.1 % (36.0-48.0); HEMOGLOBIN 12.5 g/dL (12-16); IMMATURE GRANULOCYTES 0.4 % (0-5); LYMPHOCYTES 6.5 % (15-50); MCH 29.1 pg (26.0-34.0); MCHC 31.2 g/dL (31.0-37.0); MCV 93.5 fL (80.0-100.0); MEAN PLATELET VOLUME 9.8 fL (7.4-10.4); MONOCYTES 7.4 % (2-11); NEUTROPHILS 85.6 % (40-80); PLATELET COUNT 243 10x3/uL (130-400); RBC 4.29 10x6/uL (4.00-5.40); RDW 14.6 % (11.5-14.5); WBC 8.4 10x3/uL (4.8-10.8)
[2018-10-08 06:23] LABS: CALCIUM 9.3 mg/dL (8.5-10.1); CARBON DIOXIDE 33.8 mmol/L (21.0-32.0); CHLORIDE - SERUM 101 mmol/L (98-107); CREATININE - SERUM 0.8 mg/dL (0.6-1.3); SODIUM 141 mmol/L (136-145); eGFR NON AFRICAN AMERICAN 76 mL/min (90-120)
[2018-10-08 06:31] LABS: CALC OSMOLALITY 286 mosm/kg (275-300); GLUCOSE 155 mg/dL (74-106); POTASSIUM - SERUM 3.9 mmol/L (3.5-5.1); UREA NITROGEN 20 mg/dL (7-18)
--- NOTE | 2018-10-08 07:39 | NUR ---
REPORT RECEIVED. WILL CONTINUE WITH POC. PT CURRENTLY LYING SEMI FOWLERS. CALL LIGHT W/I REACH. PT IS AAO AND UP AD SHWETHA. RR EVEN AND UNLABORED 2L 02. R.AC PIV SALINE LOCKED. PT DENIES ANY NEEDS AT THIS TIME. NO S/S OF DISTRESS NOTED. WILL CTM.
[2018-10-08 08:34] VITALS: BP 145/71
[2018-10-08 11:31] VITALS: BP 153/72
--- NOTE | 2018-10-08 12:36 | NUR ---
I have reviewed this patient and I concur with the Shift Assessment completed by the Licensed Practical Nurse today this shift.
[2018-10-08 13:39] VITALS: Ht 157.5 cm; Wt 51.7 kg
[2018-10-08 16:17] VITALS: BP 171/81
--- NOTE | 2018-10-08 19:45 | NUR ---
PT SITTING UP IN BED ALERT AND ORIENTED. PT DENIES ANY NEEDS OR PAIN AT THIS TIME. BED LOW CALL LIGHT WITHIN REACH. WILL CONTINUE TO MONITOR.
[2018-10-08 20:00] VITALS: BP 144/74
[2018-10-09 00:30] VITALS: BP 145/80
--- NOTE | 2018-10-09 03:08 | NUR ---
PT RESTING IN BED WITH EYES CLOSED. RR EVEN AND UNLABORED. NO S/S OF DISTRESS. BED LOW CALL LIGHT WITHIN REACH. WILL CONTINUE TO MONITOR.
--- NOTE | 2018-10-09 04:29 | NUR ---
I have reviewed this patient and I concur with the Shift Assessment completed by the Licensed Practical Nurse today this shift.
[2018-10-09 05:00] VITALS: BP 151/73
--- NOTE | 2018-10-09 05:10 | NUR ---
PT 20G IV IN LAC INFILTRATED. IV DC'D CATHETER TIP TIN PLACE. 22G RE-ESTABLISHED IN PT RIGHT HAND. IV PANTENT. BED LOW CALL LIGHT WITHIN REACH. WILL CONTINUE TO MONITOR.
--- NOTE | 2018-10-09 07:15 | NUR ---
REPORT RECIEVED AND ROUNDING COMPLETE. PT LAYING IN BED EYES CLOSED BREATHING EVEN AND UNLABORED. PT RECIEVING 02 AT 2L VIA NC. PT LAYING IN SUPINE POSITION. CALL LIGHT WITHIN REACH AND BED IN LOWEST POSITION.
[2018-10-09 07:30] LABS: CALC OSMOLALITY 280 mosm/kg (275-300); CALCIUM 9.6 mg/dL (8.5-10.1); CHLORIDE - SERUM 99 mmol/L (98-107); CREATININE - SERUM 0.8 mg/dL (0.6-1.3); GLUCOSE 125 mg/dL (74-106); POTASSIUM - SERUM 4.3 mmol/L (3.5-5.1); SODIUM 138 mmol/L (136-145); UREA NITROGEN 23 mg/dL (7-18); eGFR NON AFRICAN AMERICAN 76 mL/min (90-120)
[2018-10-09 07:51] LABS: HEMATOCRIT 37.5 % (36.0-48.0); HEMOGLOBIN 11.9 g/dL (12-16); MCH 29.3 pg (26.0-34.0); MCHC 31.7 g/dL (31.0-37.0); MCV 92.4 fL (80.0-100.0); MEAN PLATELET VOLUME 9.9 fL (7.4-10.4); RBC 4.06 10x6/uL (4.00-5.40); RDW 14.6 % (11.5-14.5)
[2018-10-09 07:55] LABS: PLATELET COUNT 299 10x3/uL (130-400); WBC 11.8 10x3/uL (4.8-10.8)
[2018-10-09 08:32] VITALS: BP 146/81
[2018-10-09 08:47] LABS: LYMPHOCYTES 13 % (15-50); MONOCYTES 12 % (2-11); NEUTROPHILS 74 % (40-80)
[2018-10-09 08:49] LABS: PLATELET ESTIMATE NORMAL; ROULEAUX OCC
[2018-10-09 12:04] VITALS: BP 161/81
--- NOTE | 2018-10-09 13:34 | NUR ---
Nutrition follow-up: Diet: Low soidum PO intake ~75% average of last 3 meals labs reviewed; glucose elevated possibly due to SoluMedrol Wt: 117# No BM charted RDN following.
--- NOTE | 2018-10-09 14:12 | NUR ---
I have reviewed this patient and I concur with the Shift Assessment completed by the Licensed Practical Nurse today this shift.
[2018-10-09 16:12] VITALS: BP 155/71
[2018-10-09 20:00] VITALS: BP 174/90
--- NOTE | 2018-10-09 20:07 | NUR ---
PT RESTING IN BED. RR EVEN AND UNLABORED. PT DENIES ANY NEEDS OR PAIN AT THIS TIME. BED LOW CALL LIGHT WITHIN REACH. WILL CONTINUE TO MONITOR.
--- NOTE | 2018-10-10 03:16 | NUR ---
I have reviewed this patient and I concur with the Shift Assessment completed by the Licensed Practical Nurse today this shift.
[2018-10-10 04:00] VITALS: BP 164/87
[2018-10-10 05:47] LABS: BASOPHILS 0.1 % (0-2); EOSINOPHILS 0 % (0-7); HEMATOCRIT 38.4 % (36.0-48.0); HEMOGLOBIN 12.2 g/dL (12-16); IMMATURE GRANULOCYTES 0.7 % (0-5); LYMPHOCYTES 9.3 % (15-50); MCH 29.4 pg (26.0-34.0); MCHC 31.8 g/dL (31.0-37.0); MCV 92.5 fL (80.0-100.0); MEAN PLATELET VOLUME 10.1 fL (7.4-10.4); MONOCYTES 5.7 % (2-11); NEUTROPHILS 84.2 % (40-80); PLATELET COUNT 282 10x3/uL (130-400); RBC 4.15 10x6/uL (4.00-5.40); RDW 14.7 % (11.5-14.5); WBC 10.1 10x3/uL (4.8-10.8)
[2018-10-10 06:04] LABS: ANION GAP 9.4 mmol/L (8-16); CALCIUM 9.4 mg/dL (8.5-10.1); CARBON DIOXIDE 31.9 mmol/L (21.0-32.0); CREATININE - SERUM 0.9 mg/dL (0.6-1.3); POTASSIUM - SERUM 4.3 mmol/L (3.5-5.1)
--- NOTE | 2018-10-10 07:00 | NUR ---
PT 22G IV INFILTRATED. IV DC'D CATHETER TIP IN PLACE. X2 STICK NO IV. HALLEY DOE X2 IV STICK NO IV. WILL ASK AM SHIFT ABOUT CENTRAL LINE CONSULT. WILL CONTINUE TO MONITOR.
--- NOTE | 2018-10-10 07:36 | NUR ---
REPORT RECEIVED. WILL CONTINUE WITH POC. PT CURRENTLY SITTING UP IN BED. CALL LIGHT W/I REACH. PT IS AAO AND UP AD SHWETHA. RR EVEN AND UNLABORED ON 2L 02. PT CURRRENTLY UNDERGOING RESP TRX. PT DOES NOT HAVE A PIV AND WILL PLACE CONSULT FOR MIDLINE. PT DENIES ANY NEEDS AT THIS TIME. WILL CTM.
[2018-10-10 08:25] VITALS: BP 195/93
[2018-10-10 12:08] VITALS: BP 172/75
--- NOTE | 2018-10-10 12:46 | NUR ---
I have reviewed this patient and I concur with the Shift Assessment completed by the Licensed Practical Nurse today this shift.
--- NOTE | 2018-10-10 15:03 | EC ---
PATIENT:ALISIA GOMES DATE OF SERVICE: 10/07/18 SEX: F MEDICAL RECORD: [id number] DATE OF : [birth year] LOCATION:D.M2 D.213 AGE OF PATIENT: 63 ADMISSION DATE: 10/07/18 REFERRING PHYSICIAN: INTERPRETING PHYSICIAN: CLARA LANIER MD ECHOCARDIOGRAM REPORT ECHO CHARGES 4 ECHO COMPLETE Date: 10/07/18 CLINICAL DIAGNOSIS: CHF ECHOCARDIOGRAPHIC MEASUREMENTS (adult normal given) AC root (d.<3.7cm) 2.3 cm LV Septum d (<1.2 cm> 0.6 cm Valve Excursion 1.1 cm LV Septum (systole) 0.9 cm Left Atria (s.<4.0cm> 2.73 cm LVPW d(<1.2cm) 1.0 cm RV (d.<2.3cm) 2.5 cm LVPW (sytole) 1.1 cm LV diastole(<5.6CM) 4.0 cm MV E-F(>70mm/sec) cm LV systole 2.9 cm LVOT Diameter 1.4 cm MV exc.(>10mm) cm Est.ejection fraction (50-75%) % DOPPLER: LVIT cm/sec A 87 cm/sec E 89 cm/sec LA cm/sec RVSP 26.0 mmHg LVOT 107 cm/sec AOP1/2T m/s Asc. Ao 184 cm/sec RVOT 73 cm/sec RA cm/sec PA 109 cm/sec AV Gradient Peak 13.5 mmHg AV Mean 6.7 mmHg AV Area 1.0 cm MV Gradient Peak 3.2 mmHg MV Mean 1.9 mmHg MV Area cm COMMENTS: Manager Highway: Kiran KHALIL Veneer Matcher: 1 Dr. Lanier TAPE# PACS Pericardial Effusion Y DATE OF SERVICE: 10/07/2018 FINDINGS: 1. Left ventricular chamber size is within normal limits. Left ventricular systolic function is normal. Overall ejection fraction is estimated at 65%. 2. Left atrium, right atrium, and right ventricle chamber sizes are within normal limit. 3. Valvular structures have normal structure and motion. 4. Doppler interrogation reveals trace mitral regurgitation and mild tricuspid regurgitation. No other valvular insufficiency or stenosis. Pulmonary systolic ECHOCARDIOGRAM REPORT [id number] ALISIA GOMES pressure is normal, estimated at 26 mmHg. 5. No evidence of pericardial effusion or left ventricular thrombus. TRANSINT:[id number] Voice Confirmation ID: [id number] DOCUMENT ID: [id number] CLARA LANIER MD at 1503 CC: [id number] DICTATION DATE: 10/08/18 1006 SKIP OPERATOR: 10/08/[address] [facility] [address] [place] [address]
[2018-10-10 16:06] VITALS: BP 162/74
[2018-10-10 19:54] VITALS: BP 161/82
[2018-10-10 23:55] VITALS: BP 147/55
--- NOTE | 2018-10-11 02:38 | NUR ---
RECIEVED UP IN BED WITH EYES CLOSED. NO S/S OF DISTRESS OBSERVED. EASILY AROUSES WITH VERBAL STIMULI. ORIENTED X4. UP AD SHWETHA TO B/R. O2@ 2 LITERS PER NC IN PLACE. IV TO LEFT WRIST SL. TELEMETRY IN PLACE.
[2018-10-11 03:55] VITALS: BP 152/88
[2018-10-11 05:26] LABS: ANION GAP 11.7 mmol/L (8-16); CALCIUM 9.2 mg/dL (8.5-10.1); CARBON DIOXIDE 32.9 mmol/L (21.0-32.0); CREATININE - SERUM 0.9 mg/dL (0.6-1.3); POTASSIUM - SERUM 4.6 mmol/L (3.5-5.1)
[2018-10-11 05:29] LABS: BASOPHILS 0.1 % (0-2); EOSINOPHILS 0 % (0-7); HEMATOCRIT 39.2 % (36.0-48.0); HEMOGLOBIN 12.3 g/dL (12-16); IMMATURE GRANULOCYTES 0.9 % (0-5); LYMPHOCYTES 7.4 % (15-50); MCH 29.1 pg (26.0-34.0); MCHC 31.4 g/dL (31.0-37.0); MCV 92.7 fL (80.0-100.0); MEAN PLATELET VOLUME 9.3 fL (7.4-10.4); MONOCYTES 2.7 % (2-11); NEUTROPHILS 88.9 % (40-80); PLATELET COUNT 271 10x3/uL (130-400); RBC 4.23 10x6/uL (4.00-5.40); RDW 14.4 % (11.5-14.5); WBC 8.6 10x3/uL (4.8-10.8)
[2018-10-11 08:18] VITALS: BP 199/95
--- NOTE | 2018-10-11 08:22 | NUR ---
PATIENT DOES NOT HAVE AN IV. SHE HAD SEVERAL STICKS YESTERDAY BEFORE THE VASCULAR NURSE GOT AN IV IN HER RIGHT WRIST. SHE HAD SOME OF HER IV ANTIBIOTICS ACCORDING TO HER NIGHT NURSE. SHE MISSED HER DOSE YESTERDAY BECGRACE OF THE DIFFICULTY GETTING AN IV. TALKED TO JAMIR THIS MORNING AND SHE SAID SHE WOULD LOOK INTO IT, PRANAY I AM UNABLE TO GIVE HER IV STEROIDS THIS MORNING. CREDITED PATIENT ONE BAG OF AMOXICILLIN BECAUSE THE ONE HANGING FOR ADMINISTRATION WAS COMPLETELY FULL FROM THE PREVIOUS SHIFT AND HANGING IN THE ROOM. SPECIAL EFFECTS TECHNICIAN IS AWARE THAT PATIENT NEEDS CENTRAL LINE.
--- NOTE | 2018-10-11 08:40 | NUR ---
RECIEVED REPORT. PATIENT IS ALERT AND AWAKE. SHE DENIES ANY NEEDS AT THIS TIME. SHE DOES NOT HAVE AN IV AND NEEDS CENTRAL ACCESS OR HER IV MEDICATIONS CHANGED TO ORAL. JOINT SPECIAL OPERATIONS IS AWARE.
--- NOTE | 2018-10-11 08:41 | NUR ---
ONE BAG OF IV MEDICATION CREDITED TO THE PATIENT BECAUSE IT WAS COMPLETELY FULL UPON MY ARRIVAL AND HANGING IN THE ROOM, HOWEVER THE PATIENT HAS NO IV ACCESS. SHE IS C/O PAIN IN HER RIGHT ARM WHERE THE LAST IV FROM THE DAY BEFORE HAD BEEN DISCONTINUED.
[2018-10-11] MEDS ORDERED: OMNICEF300 MG PO (10:56)
[2018-10-11] MEDS ORDERED: ZITHROMAX500 MG PO (10:56)
[2018-10-11] MEDS ORDERED: PULMICORT0.5 MG/21 UPD (10:57)
[2018-10-11] MEDS ORDERED: NORVASC5 MG PO (10:57)
[2018-10-11] MEDS ORDERED: FLUTICASONE PRO16 GM NASAL (10:58)
[2018-10-11] MEDS ORDERED: STERAPRED DS 1010 MG PO (11:00)
--- NOTE | 2018-10-11 11:29 | NUR ---
CALLED DR LOMBARDO SAID OK TO DISCHARGE PATIENT. WAITING ON DISCHARGE NURSE TO ORGANIZE PAPERWORK. PATIENT WILL BE GOING HOME ON OXYGEN.ORGANIZING THAT NOW.
--- NOTE | 2018-10-11 11:37 | NUR ---
I have reviewed this patient and I concur with the Shift Assessment completed by the Licensed Practical Nurse today this shift.
[2018-10-11 12:08] VITALS: BP 164/84
--- NOTE | 2018-10-11 12:56 | NUR ---
PT REPORTS THAT [facility] IS CLOSED THIS WEEKEND. REQUESTED RX'S TO BE CALLED TO [facility]. NEEDED ZITHROMAX, OMINCEF AND STEROID DOSEPAK ISSUED. SHE HAS OTHER RX'S ON HAND. RX'S CALLED, SPOKE WITH PHAMACIST, WINDY.
--- NOTE | 2018-10-11 13:57 | MORECARE ---
CASE MANAGEMENT DISCHARGE SUMMARY PATIENT: ALISIA YOUSSEF UNIT: [id number] ADM DATE: 10/07/18 AGE: 63 : 53 SEX: F ROOM/BED: D.3910 AUTHOR: MOUNADOC PHYSICIAN: REFERRING PHYSICIAN: CROW GUNDERSON MD DATE OF SERVICE: 10/11/18 Discharge Plan Patient Name: ALISIA YOUSSEF Facility: [facility]:[place] : 1955 Planned Disposition: Home Anticipated Discharge Date: 10/09/18 Discharge Date: Expected LOS: 2 Initial Reviewer: [email or web address] Initial Review Date: 10/07/2018 Generated: 10/11/18 2:57 pm Comments DCP- Discharge Planning Updated by [email or web address]: Alayna Aceves on 10/11/18 12:[address] PATIENT FOR DISCHARGE TO HOME TODAY. SHE WILL REQUIRE HOME OXYGEN THERAPY. [place] SPOKE WITH PRIMARY NURSE, PATTI. PATIENT'S O2 SAT WAS 87% AT REST ON ROOM AIR 10/10/18. SHE HAD A NEBULIZER DELIVERED FROM [facility] 10[facility]. SHE WANTS THE SAME DME COMPANY FOR OXYGEN. POC FORM SIGNED. PATIENT W/ ORIGINAL COPY AND AN ORIGINAL COPY TO THE PATIENT'S CHART. HER IS AT THE BEDSIDE TO PROVIDE TRANSPORTATION TO HOME. SHE DENIES ANY ADDITIONAL NEEDS. TC TO [facility] AT [phone]. REC CB FROM ONCALL SPOUT LINER HELPER, CONRAD. FAXED FACE SHEET. MD ORDER, OXYGEN THERAPY ORDER FORM AND CLINICAL. [place] HAD SPOKEN TO DR LOMBARDO. ORDER RECEIVED FOR O2 AND HE COMPLETED THE FORM WHEN HE ARRIVED ON THE UNIT. DISCHARGE IMM SIGNED. AWAIT DELIVERY OF PORTABLE OXYGEN TO THE HOSPITAL. STATIONARY UNIT WILL BE DELIVERED TO THE PATIENT'S HOME. DCP- Discharge Planning Updated by [id number]: Julianna Montalvo on 10/07/18 1:[address] Patient Name: ALISIA YOUSSEF Admission Status: ER Accout number: [id number] Admission Date: 10-07-2018 : 1955 Admission Diagnosis: Attending: CROW GUNDERSON Current LOS: 1 Anticipated DC Date: 10-09-2018 Planned Disposition: Home Primary Insurance: [employer] MEDICARE ADV Discharge Planning Comments: CM met with patient and her to complete initial dc planning assessment. CM educated patient and her on the CM role and verbal consent given by patient to complete assessment. Patient lives at home with her and is independent in her care at home. At discharge patient plans to return with her and feels this is a safe discharge. CM discussed availability of home health, rehab services, and medical equipment. Patient denied known discharge needs at this time. CM will continue to follow and will assist as needed with dc plans/needs. Stemhole Borer And Topper: Julianna Montalvo RN, [facility] DCPIA - Discharge Planning Initial Assessment Updated by [email or web address]: Julianna Montalvo on 10/07/18 2:36 pm * Is the patient Alert and Oriented? Yes * How many steps to enter\exit or inside your home? * PCP Dr. Estrada * Pharmacy [facility] * Preadmission Environment Home with Family * ADLs Independent * Equipment Nebulizer * List name and contact numbers for known caregivers / representatives who currently or will assist patient after discharge: Raulito Youssef - [phone] * Verbal permission to speak to the caregivers and representatives has been obtained from the patient. Yes * Community resources currently utilized None * Additional services required to return to the preadmission environment? No * Can the patient safely return to the preadmission environment? Yes * Has this patient been hospitalized within the prior 30 days at any hospital? No Coverage Notice Reviewer: [email or web address] Lalit Aceves Notice Issued Date-Time: 10/11/2018 13:15 Notice Type: IM Discharge Notice Notice Delivered To: Patient Relationship to Patient: Self Preforms Laminator Name: Delivery Method: HAND - Hand Delivered Ryann Days: Prior Verbal Notification: Recipient Understood Notice: Yes Recipient Signature: Yes Med Rec Note Co-signed by Attending: Coverage Notice Comment: DISCHARGE IMM SERVED/ RSP PATIENT HAD NO QUESTIONS OR CONCERNS. PATIENT W/ COPY AND A SIGNED COPY TO HARDCOVER CHART. Last DP export: 10/07/18 1:43 p Patient Name: ALISIA YOUSSEF Page [phone] at 1357 All edits/amendments must be made on the electronic document DICTATION DATE: 10/11/18 8746 DRAFTING DETAILER: ERIK 10/11/18 5252 RPT#: [id number] DC DATE: STATUS: ADM IN [facility] [address] [facility] [place] [address] END OF REPORT
--- NOTE | 2018-10-11 13:58 | NUR ---
PATIENT DISCHARGE TEACHING COMPLETE. FAMILY AT BEDSIDE. PAPERS SIGNED.
--- NOTE | 2018-10-11 14:34 | NUR ---
PATIENT HAS LEFT THE FLOOR BY WHEELCHAIR, WITH FAMILY MEMBERS. SHE GOT THE OXYGEN ORDERED. SHE TOOK ALL HER BELONGINGS FROM THE ROOM.
--- NOTE | 2018-10-13 09:40 | MORECARE ---
CASE MANAGEMENT DISCHARGE SUMMARY PATIENT: ALISIA YOUSSEF UNIT: [id number] ADM DATE: 10/07/18 AGE: 63 : 53 SEX: F ROOM/BED: D.2670 AUTHOR: MILES FREIRE PHYSICIAN: REFERRING PHYSICIAN: CROW GUNDERSON MD DATE OF SERVICE: 10/13/18 Discharge Plan Patient Name: ALISIA YOUSSEF Facility: [facility]:[place] : 1955 Planned Disposition: Home Anticipated Discharge Date: 10/11/18 Discharge Date: 10/11/2018 Expected LOS: 4 Initial Reviewer: [email or web address] Initial Review Date: 10/07/2018 Generated: 10/13/18 10:40 am Comments DCP- Discharge Planning Updated by [email or web address]: Alayna Klamath on 10/11/18 12:[address] PATIENT FOR DISCHARGE TO HOME TODAY. SHE WILL REQUIRE HOME OXYGEN THERAPY. [place] SPOKE WITH PRIMARY NURSE, PATTI. PATIENT'S O2 SAT WAS 87% AT REST ON ROOM AIR 10/10/18. SHE HAD A NEBULIZER DELIVERED FROM [facility] 10/10. SHE WANTS THE SAME DME COMPANY FOR OXYGEN. POC FORM SIGNED. PATIENT W/ ORIGINAL COPY AND AN ORIGINAL COPY TO THE PATIENT'S CHART. HER IS AT THE BEDSIDE TO PROVIDE TRANSPORTATION TO HOME. SHE DENIES ANY ADDITIONAL NEEDS. TC TO [facility] AT [phone]. REC CB FROM ONCALL ELEVATOR OPERATOR FREIGHT, CONRAD. FAXED FACE SHEET. MD ORDER, OXYGEN THERAPY ORDER FORM AND CLINICAL. [place] HAD SPOKEN TO DR LOMBARDO. ORDER RECEIVED FOR O2 AND HE COMPLETED THE FORM WHEN HE ARRIVED ON THE UNIT. DISCHARGE IMM SIGNED. AWAIT DELIVERY OF PORTABLE OXYGEN TO THE HOSPITAL. STATIONARY UNIT WILL BE DELIVERED TO THE PATIENT'S HOME. DCP- Discharge Planning Updated by [id number]: Julianna Montalvo on 10/07/18 1:[address] Patient Name: ALISIA YOUSSEF Admission Status: ER Accout number: [id number] Admission Date: 10-07-2018 : 1955 Admission Diagnosis: Attending: CROW GUNDERSON Current LOS: 1 Anticipated DC Date: 10-09-2018 Planned Disposition: Home Primary Insurance: WE[employer] MEDICARE ADV Discharge Planning Comments: CM met with patient and her to complete initial dc planning assessment. CM educated patient and her on the CM role and verbal consent given by patient to complete assessment. Patient lives at home with her and is independent in her care at home. At discharge patient plans to return with her and feels this is a safe discharge. CM discussed availability of home health, rehab services, and medical equipment. Patient denied known discharge needs at this time. CM will continue to follow and will assist as needed with dc plans/needs. Director Of Physical Education: Julianna Montalvo RN, [facility] DCPIA - Discharge Planning Initial Assessment Updated by [email or web address]: Julianna Montalvo on 10/07/18 2:36 pm * Is the patient Alert and Oriented? Yes * How many steps to enter\exit or inside your home? * PCP Dr. Estrada * Pharmacy [facility] * Preadmission Environment Home with Family * ADLs Independent * Equipment Nebulizer * List name and contact numbers for known caregivers / representatives who currently or will assist patient after discharge: Raulito Youssef - [phone] * Verbal permission to speak to the caregivers and representatives has been obtained from the patient. Yes * Community resources currently utilized None * Additional services required to return to the preadmission environment? No * Can the patient safely return to the preadmission environment? Yes * Has this patient been hospitalized within the prior 30 days at any hospital? No Coverage Notice Reviewer: [id number] Lalit Aceves Notice Issued Date-Time: 10/11/2018 13:15 Notice Type: IM Discharge Notice Notice Delivered To: Patient Relationship to Patient: Self Bellperson Name: Delivery Method: HAND - Hand Delivered Ryann Days: Prior Verbal Notification: Recipient Understood Notice: Yes Recipient Signature: Yes Med Rec Note Co-signed by Attending: Coverage Notice Comment: DISCHARGE IMM SERVED/ RSP PATIENT HAD NO QUESTIONS OR CONCERNS. PATIENT W/ COPY AND A SIGNED COPY TO HARDCOVER CHART. Last DP export: 10/11/18 12:57 p Patient Name: ALISIA YOUSSEF Page [id number] at 0940 All edits/amendments must be made on the electronic document DICTATION DATE: 10/13/18939 PLEXIGLAS FORMER: ERIK 10/13/18939 RPT#: [id number] DC DATE:10/11/18 STATUS: DIS IN [facility] [address] [place] [address] END OF REPORT
== END 2018-10-11 14:35 | disposition home or self-care (01) | DRG 189 ==
LOC: D.ER 04:54 → D.M2 05:35 → D.EDHOLD 05:35 → D.M2 11:41
PROVIDERS: Family Medicine; ADMIT Internal Medicine Nephrology; ATTEND Internal Medicine Nephrology
DX: J96.21 Acute and chronic respiratory failure with hypoxia (principal); J44.0 Chronic obstructive pulmonary disease with (acute) lower respiratory infection; J44.1 Chronic obstructive pulmonary disease with (acute) exacerbation; E87.6 Hypokalemia; I10 Essential (primary) hypertension; I25.10 Atherosclerotic heart disease of native coronary artery without angina pectoris; I73.9 Peripheral vascular disease, unspecified; M32.9 Systemic lupus erythematosus, unspecified; Z87.891 Personal history of nicotine dependence; J20.9 Acute bronchitis, unspecified

== ENCOUNTER 2019-03-06 10:06 | Outpatient (CLI) | payer MEDICARE ==
[~2019-03-06] VITALS: Ht 157.5 cm; Wt 52.7 kg
--- NOTE | ~2019-03-06 | HEMODYNAMI ---
PATIENT:ALISIA GOMES MEDICAL RECORD: [id number] : 51 LOCATION:[facility] ADMISSION DATE: 03/06/19 Generatedon:03/06/201914:57 Patient name: ALISIA GOMES Patient #: [id number] SSN: : 1955 Date of study: 03/06/2019 Page: Of Hemodynamic Procedure Report Patient Data Patient Demographics Procedure consent was obtained First Name: ALISIA Gender: Female Last Name: ELISEO : 1955 Patient #: [id number] Age: 63 year(s) Race: Unknown Additional ID: [id number] Contact details Address: [address] [place] [address] State: [place] City: [place] Zip code: [address] Past Medical History Allergies Allergen Reaction Date Comments Reported Sulfa drugs 01/17/2018 Admission Admission Data Admission Date: 03/06/2019 Admission Time: 10:06 Procedure Procedure Types Cath Procedure Diagnostic Procedure Sedation Charges Moderate Sedation up to 30 minutes Peripheral Cath Diagnostic Procedure Pulp Mixer Peripheral Procedures Dwkhg-Ulqgtcd-Fjh-Off Peripheral vascular Intervention Stent Stent-Fem/Popw/plasty Procedure Description Procedure Date Procedure Date: 03/06/2019 Procedure Start Time: 14:36 Procedure End Time: 14:52 Procedure Staff Name Function Andre Lanier MD Performing Physician Ligia Ballard RT Monitor Dian Ventura RT Scrub Agustín Pappas RN Nurse Procedure Data Cath Procedure Fluoroscopy Diagnostic fluoroscopy Total fluoroscopy Time: 3.5 time: 3.5 min min Diagnostic fluoroscopy Total fluoroscopy dose: 87 dose: 87 mGy mGy Contrast Material Contrast Material Type Amount (ml) Isovue 300 79 Entry Location Entry Primary Successful Side Size Upsize Upsize Entry Closure Succes sful Closure Location (Fr) 1 (Fr) 2 (Fr) Remarks Device Remarks Femoral Left 5 Fr 6 Fr 6 Fr Exoseal artery Long Short Estimated blood loss: 5 ml Diagnostic catheters Device Type Used For End Catheter Placement DIAGNOSTIC UF 5Fr Multi-vessel catheter ([id number]) Angiography Procedure Complications No complications Procedure Medications Medication Administration Route Dosage 0.9% NaCl I.V. 100 ml/hr Oxygen etCO2 Nasal cannula 2 l/min Heparin Flush Bag added to field 2 bags (1000units/500ml NS) Lidocaine 2% added to field 20 Benadryl I.V. 50 mg Versed I.V. 1 mg Fentanyl I.V. 50 mcg Heparin Bolus I.V. 4000 units Integrilin (Bolus I.V. 4.5 ml 2mg/ml) Versed I.V. 1 mg Fentanyl I.V. 50 mcg Integrilin (Bolus wasted 5.5 ml 2mg/ml) Plavix P.O. 600 mg Hemodynamics Rest Heart Rate: 94 (bpm) Snapshots Pre Cath Intra NCS Post Cath Vital Signs Time Heart Resp SPO2 etCO2 NIBP (mmHg) Rhythm Pain Sedation Rate (ipm) (%) (mmHg) Status Level (bpm) 13:52:50 77 18 94 0 156/78(120) NSR 0 (11) 10(A) , No pain 13:57:04 78 12 97 34.4 139/80(98) NSR 0 (11) 10(A) , No pain 14:01:10 81 22 99 29.9 154/86(123) NSR 0 (11) 10(A) , No pain 14:05:24 86 15 97 18 142/82(107) NSR 0 (11) 10(A) , No pain 14:09:33 88 15 97 27.7 137/78(112) NSR 0 (11) 10(A) , No pain 14:13:41 80 18 98 29.2 141/82(115) NSR 0 (11) 10(A) , No pain 14:17:53 78 12 96 0 127/71(105) NSR 0 (11) 10(A) , No pain 14:21:59 74 13 97 0 122/70(92) NSR 0 (11) 10(A) , No pain 14:26:03 74 13 97 0 124/71(91) NSR 0 (11) 10(A) , No pain 14:30:08 75 13 96 0 121/73(89) NSR 0 (11) 10(A) , No pain 14:34:12 75 19 97 32.9 126/71(95) NSR 0 (11) 10(A) , No pain 14:38:16 78 17 97 33.7 127/78(100) NSR 0 (11) 10(A) , No pain 14:42:22 71 13 97 11.9 121/74(91) NSR 0 (11) 10(A) , No pain 14:46:28 73 13 96 10.4 131/70(107) NSR 0 (11) 10(A) , No pain 14:50:34 76 13 97 21.7 129/80(95) NSR 0 (11) 10(A) , No pain Medications Time Medication Route Dose Verified Delivered Reason Notes Effectiveness by by 13:55:29 0.9% NaCl I.V. 100 Agustín Agustín Per physician ml/hr Elyse Pappas RN RN 13:55:39 Oxygen etCO2 2 Agustín Agustín for low 02 sats Nasal l/min Elyse Pappas cannula RN RN 13:55:51 Heparin Flush added 2 Agustín Agustín used for Bag to bags Elyse Pappas procedure (1000units/500ml RN RN NS) 13:56:01 Lidocaine 2% added 20ml Agustín Agustín for local to vial Elsye Pappas anesthetic RN RN 13:56:17 Benadryl I.V. 50 mg Agustín Agustín Per physician Elyse Pappas RN RN 14:35:15 Versed I.V. 1 mg Agustín Agustín for sedation Elyse Pappas RN RN 14:35:24 Fentanyl I.V. 50 Agustín Agustín for sedation mcg Elyse Pappas RN RN 14:45:17 Heparin Bolus I.V. 4000 Agustín Agustín for units Elyse Pappas anticoagulation RN RN 14:47:35 Integrilin I.V. 4.5 Agustín Agustín for (Bolus 2mg/ml) ml Elyse Pappas antiplatelet RN RN therapy 14:47:51 Versed I.V. 1 mg Agustín Agustín for sedation Elyse Pappas RN RN 14:47:58 Fentanyl I.V. 50 Agustín Agustín for sedation mcg Elyse Pappas RN RN 14:48:43 Integrilin wasted 5.5 Agustín Agustín to sharp's (Bolus 2mg/ml) ml Elyse Pappas RN RN 14:52:43 Plavix P.O. 600 Agustín Agustín for mg Elyse Pappas antiplatelet RN RN therapy Procedure Log Time Note 13:30:19 Agustín Pappas RN sent for patient. Start room use. 13:46:18 Diagnostic Cath Status : Elective 13:47:16 Procedure Status Peripheral. 13:47:26 Time tracking: Regular hours (M-F 7:00 - 5:00) 13:47:30 Plan of Care:Hemodynamics will remain stable., Cardiac rhythm will remain stable., Comfort level will be maintained., Respiratory function will remain adequate., Patient/ family verbilizes understanding of procedure., Procedure tolerated without complication., Recovers from procedure without complications.. 13:47:35 Patient received from Pre/Post Procedure Room to [facility] 2 Alert and oriented. Tansferred to table in Supine position. 13:47:37 Warm blankets applied, and elvia hugger turned on for patient comfort. 13:47:38 Signed procedure consent form obtained from patient. 13:47:39 Correct patient and procedure confirmed by team. 13:47:41 ECG and BP/O2 sat monitors applied to patient. 13:51:39 Vital chart was started 13:51:42 Baseline sample Acquired. 13:55:29 0.9% NaCl 100 ml/hr I.V. was administered by Agustín Pappas RN; Per physician; 13:55:39 Oxygen 2 l/min etCO2 Nasal cannula was administered by Agustín Pappas RN; for low 02 sats; 13:55:51 Heparin Flush Bag (1000units/500ml NS) 2 bags added to field was administered by Agustín Pappas RN; used for procedure; 13:56:01 Lidocaine 2% 20ml vial added to field was administered by Agustín Pappas RN; for local anesthetic; 13:56:17 Benadryl 50 mg I.V. was administered by Agustín Pappas RN; Per physician; 13:57:49 Rhythm: sinus rhythm 13:57:51 Full Disclosure recording started 13:57:55 H&P Date Dictated: 03/06/2019 Within 30 days and on chart., H&P Addendum completed by physician on day of procedure. (MUST COMPLETE FOR ALL OUTPATIENTS). 13:57:56 Pre-procedure instructions explained to patient. 13:57:56 Pre-op teaching completed and patient verbalized understanding. 13:57:57 Family in waiting room. 13:58:00 Patient NPO since Midnight. 13:58:01 Is the patient allergic to Iodine/contrast media? No. 13:58:02 Was the patient premedicated? No 13:58:07 Is patient on blood thinner?No 13:58:08 Patient diabetic? No. 13:58:11 Previous problem with sedation/anesthesia? No ? 13:58:12 Snore? Yes 13:58:13 Sleep apnea? No 13:58:14 Deviated septum? No 13:58:15 Opens mouth fully? Yes 13:58:16 Sticks out tongue? Yes 13:58:19 Airway obstruction? Yes copd 13:58:23 Dentures? Yes in tight 13:58:31 Pre procedure: right dorsailis pedis pulse 2+ Normal; easily identifiable; not easily obliterated 13:58:34 Pre procedure: left dorsailis pedis pulse 2+ Normal; easily identifiable; not easily obliterated 13:58:37 Patient pain scale 0/10 ?. 13:58:46 IV patent on arrival in left forearm with 0.9% NaCl at O. 13:58:48 Lab results completed and on chart. 13:58:53 Bilateral groins area was prepped with chlora-prep and draped in sterile fashion 13:58:53 Alarms reviewed by R. N. 13:58:54 Sharps counted by scrub and verified by R.N. 14:02:32 2) 60-89 Mildly reduced kidney function, and other findings (as for stage 1) point to kidney disease. 14:18:04 Zero performed for pressure channel P1 14:26:51 Physician arrived 14:26:51 --------ALL STOP TIME OUT------ 14:26:52 Final Timeout: patient, procedure, and site verified with staff and physician. All members of the team are in agreement. 14:26:54 Bilateral groins site verified by team. 14:26:57 Fire Safety Assessment: A--An alcohol-based skin anteseptic being used preoperatively., C--Open oxygen or nitrous oxide is being used., D--An ESU, laser, or fiber-optic light is being used. 14:27:00 Physical assessment completed. ASA score P 2 - A patient with mild systemic disease as per Andre Lanier MD. 14:27:05 Maximum allowable contrast dose (3.7 X eGFR X 0.75)185 ml. 14:27:09 Sedation plan: IV Moderate Sedation Medication:Versed, Fentanyl 14:35:15 Versed 1 mg I.V. was administered by Agustín Pappas RN; for sedation; 14:35:16 Use device set CATH PACK 14:35:17 ACIST Syringe (57619) opened to sterile field. 14:35:17 ACIST Hand Control (57763) opened to sterile field. 14:35:18 ACIST Manifold (78461) opened to sterile field. 14:35:19 Medline Cath Pack ([id number]) opened to sterile field. 14:35:19 Bag Decanter (2002S) opened to sterile field. 14:35:20 EMERALD Guide Wire (502-454) opened to sterile field. 14:35:24 Fentanyl 50 mcg I.V. was administered by Agustín Pappas RN; for sedation; 14:35:27 SHEATH 5FR [place] (GJX605) opened to sterile field. 14:36:15 Procedure started. 14:36:24 Local anesthetic to left femerol artery with Lidocaine 2% by Andre Lanier MD.INITIAL ACCESS ONLY 14:36:33 A 5 Fr sheath was inserted into the Left Femoral artery 14:36:43 A DIAGNOSTIC UF 5Fr catheter ([id number]) was advanced over the wire and used for Multi-vessel Angiography. 14:36:49 Abdominal angiogram w/ runoff was performed. 14:38:02 Catheter removed. 14:38:26 GLIDE WIRE ANGLE 260cm (AY3764) opened to sterile field. 14:38:39 SHEATH 6FR Destination (RSR01) opened to sterile field. 14:39:06 TORQUE DEVICE PLASTIC .038 ( TD01) opened to sterile field. 14:39:15 INFLATOR Merit BasixCompak (VM4418) opened to sterile field. 14:39:28 SHEATH 6FR [place] (KVX358) opened to sterile field. 14:39:37 Sheath upsized to a 6 Fr Long. 14:42:10 CHOICE PT Extra Support J 300cm guide wire ([id number]) opened to sterile field. 14:42:21 Right leg runoff performed. 14:45:08 choice pt wire advanced. 14:45:09 Wire advanced across lesion. 14:45:16 Inflate balloon Inflation number: 1 A POWERFLEX PRO 6.0 x 100 x 135cm balloon ([id number]) was prepped and advanced across the Mid Superficial Femoral, Right , then inflated to 9 WIN for 0:10 (min:sec) . 14:45:17 Heparin Bolus 4000 units I.V. was administered by Agustín Pappas RN; for anticoagulation; 14:45:47 Balloon removed over the wire. 14:47:35 Integrilin (Bolus 2mg/ml) 4.5 ml I.V. was administered by Agustín Pappas RN; for antiplatelet therapy; 14:47:48 SMART 6 x 100 x 120 stent ([id number]) was deployed across Mid Superficial Femoral, Right . 14:47:51 Versed 1 mg I.V. was administered by Agustín Pappas RN; for sedation; 14:47:58 Fentanyl 50 mcg I.V. was administered by Agustín Pappas RN; for sedation; 14:48:43 Integrilin (Bolus 2mg/ml) 5.5 ml wasted was administered by Agustín Pappas RN; to sharp's; 14:49:08 Inflation number: 2 The POWERFLEX PRO 6.0 x 100 x 135cm balloon ([id number]) was reinflated across the Mid Superficial Femoral, Right , to 9 WIN for 0:10 (min:sec) . 14:50:32 Balloon removed over the wire. 14:50:34 Wire removed. 14:50:43 Sheath upsized to a 6 Fr Short. 14:50:50 EXOSEAL 6Fr (EX600) opened to sterile field. 14:51:37 Sheath removed intact; hemostasis achieved with Exoseal to the Left Femoral artery. 14:51:38 Procedure ended.(Physican Out) 14:51:56 Fluoroscopy time 03.50 minutes. 14:51:59 Flurop Dose total: 87 14:51:59 Fluoroscopy dose: 87 mGy 14:52:04 Dose Area Product 8351 mGy/cm. 14:52:07 Contrast amount:Isovue 300 79ml. 14:52:09 Sharps counted by scrub and verified by R.N. 14:52:15 Post-op/insertion site Left Femoral artery dressed using a 4 x 4 and Tegaderm. 14:52:19 Post procedure rhythm: unchanged. 14:52:21 Estimated blood loss: 5 ml 14:52:22 Post procedure instruction explained to patient.Patient verbalizes understanding. 14:52:23 Patient needs reinforcement of post procedure teaching. 14:52:39 Procedure type changed to Cath procedure, Diagnostic procedure, Sedation Charges, Moderate Sedation up to 30 minutes, Peripheral Cath Diagnostic Procedure, Pulp Mixer Peripheral Procedures, Ngtlf-Gtlbvhs-Emx-Off, Peripheral vascular Intervention, Stent, Stent-Fem/Popw/plasty 14:52:40 Procedure and supply charges have been captured, reviewed, submitted and are correct. 14:52:43 Plavix 600 mg P.O. was administered by Agustín Pappas RN; for antiplatelet therapy; 14:52:45 Procedure Complication : No complications 14:52:47 Vital chart was stopped 14:52:48 See physician's report for complete and final results. 14:52:49 Report given to Pre/Post Procedure Room. 14:52:53 Patient transfered to Pre/Post Procedure Room with Stretcher. 14:52:55 Procedure ended. 14:52:55 Full Disclosure recording stopped 14:53:01 End room use (Document Last) Intervention Summary Intervention Notes Time ActionType Lesion and Equipment Action# Pressure Duration Attributes Used 14:45:16 Inflate Mid POWERFLEX 1 9 00:10 balloon Superficial PRO 6.0 x Femoral, 100 x Right 135cm balloon ([id number]) 14:47:48 Deploy self Mid SMART 6 x 1 expanding Superficial 100 x 120 stent Femoral, stent Right ([id number]) 14:49:08 Reinflate Mid POWERFLEX 2 9 00:10 balloon Superficial PRO 6.0 x Femoral, 100 x Right 135cm balloon ([id number]) Device Usage Item Name Manufacture Quantity Catalog Number Hospital Part Current Minim al Lot# / Charge Number Stock Stock Serial# Code ACIST Acist 1 10334 085847 717351 566520 20 Syringe Medical (85031) Systems Inc ACIST Hand Acist 1 05527 547477 520076 270837 5 Control Medical (28849) Systems Inc ACIST Acist 1 33895 953458 378956 401447 5 Manifold Medical (56709) Systems Inc Medline Medline 1 [id number] 919450 66473 916145 5 Cath Pack ([id number]) Bag Microtek 1 204895 38159 502789 5 Decanter Medical Inc. (2002S) EMERALD Cardinal 1 502-455 610744 927625 205543 5 Guide Wire Health (502-455) SHEATH 5FR Terumo 1 ITM144 335078 943982 688308 5 [place] (IFI692) DIAGNOSTIC Cardinal 1 [id number] 168878 229899 509938 10 UF 5Fr Health catheter ([id number]) GLIDE WIRE Terumo 1 HM0570 849470 981118 565594 5 ANGLE 260cm (EO2938) SHEATH 6FR Terumo 1 RSR01 109422 49427 944443 5 Destination (RSR01) TORQUE Jackhorn 1 TD01 140910 799920 261458 5 DEVICE Scientific PLASTIC .038 ( TD01) INFLATOR Merit 1 GP8126 914962 547163 769166 15 Merit Medical BasixCompak (HF9619) SHEATH 6FR Terumo 1 AMC450 760368 597005 402991 40 [place] (AJV152) CHOICE PT Jackhorn 1 [id number] 044832 906518 277794 5 Extra Scientific Support J 300cm guide wire ([id number]) POWERFLEX Cardinal 1 [id number] 844529 359138 306253 5 PRO 6.0 x Health 100 x 135cm balloon ([id number]) SMART 6 x Cardinal 1 [id number] 035109 145581 664838 0 [id number] 100 x 120 Health stent ([id number]) EXOSEAL 6Fr Cardinal 1 EX600 546483 947276 675873 10 (EX600) Health Signature Audit [place] Stage Time Signature Unsigned Intra-Procedure 03/06/2019 Ligia Ballard 2:57:40 PM RT(R) Signatures Performing Physician : Signature : Andre Lanier MD Date : Time : Monitor : Ligia Ballard RT Signature : Date : Time : Nurse : Agustín Lorigan Signature : RN Date : Time : [address] [place] [address]
[~2019-03-06 10:06] MED LIST changes: +FLUTICASONE PRO16 GM NASAL; +NORVASC5 MG PO; +OMNICEF300 MG PO; +PULMICORT0.5 MG/21 UPD; +STERAPRED DS 1010 MG PO; +ZITHROMAX500 MG PO
[2019-03-06] MEDS ORDERED: HYDROXYCHLOROQUINE PO (10:25)
[2019-03-06] MEDS ORDERED: NORVASC5 MG PO (10:26)
[2019-03-06] MEDS ORDERED: PREDNISONE10 MG PO (10:26)
[2019-03-06] MEDS ORDERED: OMEPRAZOLE40 MG PO (10:26)
[2019-03-06 10:40] VITALS: BP 154/74; Ht 157.5 cm; Wt 52.7 kg
[2019-03-06 10:40] LABS: BASOPHILS 0.2 % (0-2); EOSINOPHILS 1.2 % (0-7); HEMATOCRIT 41.1 % (36.0-48.0); HEMOGLOBIN 13.5 g/dL (12-16); IMMATURE GRANULOCYTES 0.5 % (0-5); LYMPHOCYTES 12.4 % (15-50); MCH 30.3 pg (26.0-34.0); MCHC 32.8 g/dL (31.0-37.0); MCV 92.4 fL (80.0-100.0); MEAN PLATELET VOLUME 9.1 fL (7.4-10.4); MONOCYTES 6.8 % (2-11); NEUTROPHILS 78.9 % (40-80); PLATELET COUNT 322 10x3/uL (130-400); RBC 4.45 10x6/uL (4.00-5.40); RDW 13.3 % (11.5-14.5); WBC 9.7 10x3/uL (4.8-10.8)
[2019-03-06 10:52] LABS: ANION GAP 11.3 mmol/L (8-16); CALCIUM 10.1 mg/dL (8.5-10.1); CREATININE - SERUM 0.9 mg/dL (0.6-1.3); POTASSIUM - SERUM 3.3 mmol/L (3.5-5.1)
[2019-03-06] MEDS ORDERED: PLAVIX75 MG PO (15:06)
--- NOTE | 2019-03-06 15:08 | NUR ---
PT ARRIVED BY STRETCHER. PLACED ON MONITORS. ASSESSMENT COMPLETED. CALL LIGHT WITHIN REACH.
--- NOTE | 2019-03-06 15:22 | NUR ---
LEFT GROIN DRESSING C/D/I. NO S/S OF HEMATOMA NOTED. RIGHT PEDAL PULSE PALPABLE. VSS. NO NEEDS AT THIS TIME. PT RESTING COMFORTABLY. FAMILY AT BEDSIDE. CALL LIGHT WITHIN REACH.
--- NOTE | 2019-03-06 16:01 | NUR ---
PT RESTING COMFORTABLY W EYES CLOSED. L GROIN DRESSING CDI NO BLEEDING OR HEMATOMA NOTED. PEDAL PULSES PALPABLE BILATERLLY. HR 72, BP 11/65, O2 SAT 98. CALL LIGHT IN REACH, AT BEDSIDE.
--- NOTE | 2019-03-06 16:30 | NUR ---
PT RESTING COMFORTABLY, L GROIN SOFT, NO BLEEDING OR HEMATOMA NOTED. VSS. LEGS PINK AND WARM, PEDAL PULSES PALPABLE. AT BEDSIDE. SIPS OF COLA GIVEN PER REQUEST. PT DENIES PAIN OR NEEDS AT THIS TIME. CALL LIGHT REMAINS IN REACH
--- NOTE | 2019-03-06 17:05 | NUR ---
L GROIN REMAINS SOFT, NO BLEEDING OR SWELLING NOTED. PT DENIES NEEDS AT THIS TIME. IV INFUSING VIA ORDERS. HR 65, BP 113/63, O2 SAT 99 ON 2L/NC. REMAINS AT BS, CALL LIGHT IN REACH
--- NOTE | 2019-03-06 17:30 | NUR ---
NO CHANGE IN CONDITION. L GROIN DRESSING CDI NO BLEEDING OR HEMATOMA NOTED. LEGS PINK AND WARM, PEDAL PULSES PALPABLE. HR 70, BP 119/70, 02 SAT 100 ON 2L/NC. TOLERATING FLUIDS W/O NAUSEA. PT DENIES PAIN OR NEEDS AT THIS TIME. CALL LIGHT REMAINS IN REACH
--- NOTE | 2019-03-06 17:49 | NUR ---
HOB ELEVATED SLIGHTLY, GROIN SOFT, DRESSING CDI NO BLEEDING OR SWELLING NOTED. SANDWICH TRAY AND DRINK SERVED. O2 REMOVED. VSS. AT BEDSIDE
--- NOTE | 2019-03-06 18:00 | NUR ---
PT DOING WELL, L GROIN SOFT, NO BLEEDING OR SWELLING NOTED. VSS. CALL LIGHT IN REACH. TOLERATED SANDWICH TRAY W/O NAUSEA. CALL LIGHT IN REACH
--- NOTE | 2019-03-06 18:30 | NUR ---
DISCHARGE INSTRUCTIONS REVIEWED W PT AND , BOTH VERBALIZED UNDERSTANDING. GROIN REMAINS SOFT, NO BLEEDING OR SWELLING NOTED. LEGS PINK AND WARM, PEDAL PULSES PALPABLE. VSS
--- NOTE | 2019-03-06 18:40 | NUR ---
IV REMOVED W CATH INTACT, MONITORS DC'D. DUE TO PT ALLERGY TO PLAVIX, NEW SCRIPT FOR EFFIENT RECEIVED PER DR. PALACIOS. PT UP TO DRESS FOR DISCHARGE
[2019-03-06] MEDS ORDERED: EFFIENT10 MG PO (18:46)
--- NOTE | 2019-03-06 18:51 | NUR ---
PREDNISONE 40MG PO GIVEN PER V/O FROM DR PALACIOS. PT DISCHARGED VIA WC TO PRIVATE VEHICLE TO WAITING. PT HAS ALL BELONGINGS.
--- NOTE | 2019-03-27 15:34 | OP ---
PATIENT NAME: ALISIA GOMES MEDICAL RECORD: [id number] :51 LOCATION:D.CAT ADMISSION DATE: SURGEON: CLARA PALACIOS MD DATE OF OPERATION: 03/06/2019 PROCEDURES: 1. Stent placement SFA, right. 2. JEWELRY INTERNSHIP SFA, right. 3. Aortofemoral runoff. 4. Abdominal aortography. INDICATIONS: Claudication and peripheral vascular disease. PROCEDURE IN DETAIL: After informed consent was obtained and after a detailed explanation of risks, benefits as well as alternative therapies, the patient elected to proceed with angiogram and angioplasty. The left femoral area was prepped and draped in normal sterile fashion. Left femoral artery was cannulated via modified Seldinger technique with placement of 6-Ecuadorean patmys-fjf-cztz sheath. All catheters exchanged through this sheath. FINDINGS: 1. The abdominal aortography was performed. The catheter was pulled down for aortofemoral runoff. Abdominal aortography reveals no significant abdominal aortic disease, no dissection or aneurysmal formation. 2. RIGHT LEG: A. Iliac: The common internal and external iliacs have mild irregularities, but no flow-limiting stenosis. B. Femoral system: The common and deep femoral are widely patent. Superficial femoral has an area of 70% to 75% stenosis in the mid distal vessel. C. The popliteal and infrapopliteal vessels are patent. There is 3-vessel runoff to the foot, although diffusely diseased. 3. LEFT LEG: A. Iliac: The common internal and external iliacs have mild irregularities, but no flow-limiting stenosis. B. Femoral system: The common and deep femoral are widely patent. Superficial femoral has a previously placed stent with up to 70% in-stent restenosis. There is 70% stenosis after that as well. C. The popliteal and infrapopliteal vessels are patent with good 3-vessel runoff to the foot. JEWELRY INTERNSHIP AND STENT OF THE RIGHT SFA: The balloon used was 6.0 balloon. This yielded suboptimal result with severe intimal dissection. Stenting was undertaken with 6 x 120 SMART stent. Result was 0% residual stenosis. OVERALL IMPRESSION: Successful JEWELRY INTERNSHIP and stent of the right SFA going from 70% to 75% initial stenosis to 0% residual. TRANSINT:[id number] Voice Confirmation ID: [id number] DOCUMENT ID: [id number] OPERATIVE REPORT [id number] GOMESALISIA ROSA CLARA PALACIOS MD at 1534 CC: [id number] DICTATION DATE: 03/27/19 0938 OCCUPATIONAL THERAPY SUPERVISOR: 03/27/19 1128 DEP CLI 03/06/19 [place] [id number] [place] [address]
== END 2019-03-06 18:50 | disposition home or self-care (01) ==
LOC: D.CATH 10:06
PROVIDERS: ATTEND Internal Medicine Interventional Cardiology
DX: I70.211 Atherosclerosis of native arteries of extremities with intermittent claudication, right leg (principal)

== ENCOUNTER 2019-03-13 07:27 | Outpatient (CLI) | payer MEDICARE ==
[~2019-03-13] VITALS: Ht 157.5 cm; Wt 52.7 kg
--- NOTE | ~2019-03-13 | HEMODYNAMI ---
PATIENT:ALISIA GOMES MEDICAL RECORD: [id number] : 51 LOCATION:[facility] ADMISSION DATE: 03/13/19 Generatedon:03/13/201910:24 Patient name: ALISIA GOMES Patient #: [id number] SSN: [id number] : 1955 Date of study: 03/13/2019 Page: Of Hemodynamic Procedure Report Patient Data Patient Demographics Procedure consent was obtained First Name: ALISIA Gender: Female Last Name: ELISEO : 1955 Patient #: [id number] Age: 63 year(s) Race: Unknown SSN: [id number] Additional ID: [id number] Contact details Address: [address] [place] [address] State: [place] City: [place] Zip code: [address] Past Medical History Allergies Allergen Reaction Date Comments Reported Sulfa drugs 01/17/2018 Other allergy 03/13/2019 PLAVIX, BACTRIM, SULFA Admission Admission Data Admission Date: 03/13/2019 Admission Time: 7:27 Admit Source: Other Insurance Payor: Medicare [facility] #: [id number] Height (in.): 61.81 BSA: 1.51 (m2) Height (cm.): 157 BMI: 21.1 (kg/m2) Weight (lbs.): 114.64 Weight (kg.): 52 Lab Results Lab Result Date: 03/13/2019 Lab Result Time: 7:50 Biochemistry Name Units Result Min Max BUN mg/dl 17 --(---*)-- 7 18 Creatinine mg/dl 0.9 --(-*--)-- 0.6 1.3 CBC Name Units Result Min Max Hematocrit % 39.8 -*(----)-- 42 54 Hemoglobin g/dl 13.1 -*(----)-- 13.5 17.5 Procedure Procedure Types Cath Procedure Peripheral vascular Intervention Atherectomy Atherectomy Fem/Pop w/Plasty Stent Stent-Fem/Popw/plasty Procedure Description Procedure Date Procedure Date: 03/13/2019 Procedure Start Time: 9:56 Procedure End Time: 10:19 Procedure Staff Name Function Andre Lanier MD Performing Physician Gaurav Cui RN Nurse Cooper Gonzales RT Scrub [facility] RT Monitor Procedure Data Cath Procedure Fluoroscopy Diagnostic fluoroscopy Total fluoroscopy Time: 5.9 time: 5.9 min min Diagnostic fluoroscopy Total fluoroscopy dose: 76 dose: 76 mGy mGy Contrast Material Contrast Material Type Amount (ml) Isovue 300 61 Entry Location Entry Primary Successful Side Size Upsize Upsize Entry Closure Succes sful Closure Location (Fr) 1 (Fr) 2 (Fr) Remarks Device Remarks Femoral Right 6 Fr 6 Fr Exoseal artery Short Long Estimated blood loss: 10 ml Diagnostic catheters Device Type Used For End Catheter Placement DIAGNOSTIC UF 5Fr Procedure catheter ([id number]) Procedure Complications No complications Procedure Medications Medication Administration Route Dosage Oxygen etCO2 Nasal cannula 2 l/min Lidocaine 2% added to field 20 Heparin Flush Bag added to field 2 bags (1000units/500ml NS) 0.9% NaCl I.V. 100 ml/hr Versed I.V. 1 mg Fentanyl I.V. 50 mcg Heparin Bolus I.V. 4000 units Versed I.V. 1 mg Fentanyl I.V. 50 mcg Versed I.V. 0.5 mg Fentanyl I.V. 25 mcg Hemodynamics Rest BSA: 1.51 (m2) HGB: 13.1 (g/dl) O2 Consumption: Estimated: 151.57 (ml/min) O2 Co nsumption indexed: Estimated:100.38 (ml/min/m) Heart Rate: 88 (bpm) Snapshots Pre Cath Intra NCS Post Cath Vital Signs Time Heart Resp SPO2 etCO2 NIBP (mmHg) Rhythm Pain Sedation Rate (ipm) (%) (mmHg) Status Level (bpm) 9:42:40 85 18 96 30.8 140/73(110) NSR 0 (11) 10(A) , No pain 9:46:52 87 16 97 36.1 125/65(93) NSR 0 (11) 10(A) , No pain 9:51:02 84 14 96 0 104/64(98) NSR 0 (11) 10(A) , No pain 9:55:07 86 15 98 0 114/64(86) NSR 0 (11) 10(A) , No pain 9:59:17 80 15 98 0 108/60(96) NSR 0 (11) 9(A) , No pain 10:03:27 88 14 100 0 107/58(98) NSR 0 (11) 9(A) , No pain 10:07:37 85 13 99 0 113/58(79) NSR 0 (11) 9(A) , No pain 10:11:49 80 14 99 0 104/57(83) NSR 0 (11) 9(A) , No pain 10:15:57 81 14 99 35.3 110/61(85) NSR 0 (11) 10(A) , No pain Medications Time Medication Route Dose Verified Delivered Reason Notes Effectiveness by by 9:46:10 Oxygen etCO2 2 Andre Gaurav used for Nasal l/min Yolande Cui RN procedure cannula 9:46:17 Lidocaine 2% added 20ml Andre Powell for local to vial Yolande Lanier MD anesthetic field 9:46:55 Heparin Flush added 2 Andre Andre used for Bag to bags Yolande Lanier MD procedure (1000units/500ml field NS) 9:47:04 0.9% NaCl I.V. 100 Andre Nolasco Per physician ml/hr Yolande Cui RN 9:55:14 Versed I.V. 1 mg Andre Nolasco for sedation Yolande Cui RN 9:55:21 Fentanyl I.V. 50 Andre Rubioie for sedation mcg Yolande Cui RN 9:59:05 Heparin Bolus I.V. 4000 Andre Nolasco for verif ied units Yolande Cui RN anticoagulation with dr lanier 10:04:23 Versed I.V. 1 mg Andre Rubioie for sedation Yolande Cui RN 10:04:27 Fentanyl I.V. 50 Andre Rubioie for sedation mcg Yolande Cui RN 10:08:34 Versed I.V. 0.5 Andre Buffie for sedation mg Yolande Cui RN 10:08:38 Fentanyl I.V. 25 Andre Rubioie for sedation mcg Yolande Cui RN Procedure Log Time Note 9:15:19 Gaurav Cui RN sent for patient. Start room use. 9:24:57 Informed consent obtained and on chart 9:29:06 Patient Weight : 114.64 lbs 9:29:09 Patient Height : 61.81 inches 9:29:19 Insurance Payor : Medicare 9:29:32 Admit Source: Other 9:: Lab Result : BUN 17 mg/dl 9: Lab Result : Hematocrit 39.8 % 9::58 Lab Result : Creatinine 0.9 mg/dl 9:: Lab Result : Hemoglobin 13.1 g/dl 9:30:17 Procedure Status Peripheral. 9:30:23 Time tracking: Regular hours (M-F 7:00 - 5:00) 9:30:26 Plan of Care:Hemodynamics will remain stable., Cardiac rhythm will remain stable., Comfort level will be maintained., Respiratory function will remain adequate., Patient/ family verbilizes understanding of procedure., Procedure tolerated without complication., Recovers from procedure without complications.. 9:30:37 H&P Date Dictated: 03/13/2019 New H&P dictated by physician.. 9:34:11 Patient received from Pre/Post Procedure Room to CCL 2 Alert and oriented. Tansferred to table in Supine position. 9:34:12 Warm blankets applied, and elvia hugger turned on for patient comfort. 9:34:12 Correct patient and procedure confirmed by team. 9:34:13 ECG and BP/O2 sat monitors applied to patient. 9:41:45 Baseline sample Acquired. 9:41:45 Vital chart was started 9:41:48 Rhythm: sinus rhythm 9:41:49 Full Disclosure recording started 9:41:50 Pre-procedure instructions explained to patient. 9:41:50 Pre-op teaching completed and patient verbalized understanding. 9:41:54 Family in patients room. 9:41:57 Patient NPO since Midnight. 9:42:15 Patient allergic to Other allergyPLAVIX, BACTRIM, SULFA 9:42:16 Is patient on blood thinner?Yes 9:42:20 ACC The patient was administered the following blood thiners within the last 24 hours: ACCEffient 9:43:37 Patient diabetic? No. 9:43:41 Previous problem with sedation/anesthesia? No ? 9:43:43 Snore? Yes 9:43:45 Sleep apnea? Yes 9:43:52 HOME 02 9:43:56 Deviated septum? No 9:43:57 Opens mouth fully? Yes 9:43:58 Sticks out tongue? Yes 9:44:00 Airway obstruction? Yes COPD 9:44:23 Dentures? Yes IN 9:44:27 Patient pain scale 0/10 ?. 9:46:10 Oxygen 2 l/min etCO2 Nasal cannula was administered by Gaurav Cui RN; used for procedure; 9:46:17 Lidocaine 2% 20ml vial added to field was administered by Andre Lanier MD; for local anesthetic; 9:46:53 IV patent on arrival in right antecubital with 0.9% NaCl at [facility]. 9:46:55 Heparin Flush Bag (1000units/500ml NS) 2 bags added to field was administered by Andre Lanier MD; used for procedure; 9:47:04 0.9% NaCl 100 ml/hr I.V. was administered by Gaurav Cui RN; Per physician; 9:48:44 Lab results completed and on chart. 9:48:48 Right groin area was prepped with chlora-prep and draped in sterile fashion 9:48:48 Alarms reviewed by R. N. 9:48:48 Sharps counted by scrub and verified by R.N. 9:51:13 Use device set CATH PACK 9:51:14 ACIST Syringe (32421) opened to sterile field. 9:51:15 ACIST Hand Control (83493) opened to sterile field. 9:51:15 ACIST Manifold (79876) opened to sterile field. 9:51:15 Medline Cath Pack ([id number]) opened to sterile field. 9:51:16 Bag Decanter (2002S) opened to sterile field. 9:51:16 EMERALD Guide Wire (502-365) opened to sterile field. 9:51:36 GLIDE WIRE Super Stiff Angled 260cm (GD9436) opened to sterile field. 9:51:38 INFLATOR Merit BasixCompak (BQ2621) opened to sterile field. 9:51:38 SHEATH 6FR Coarsegold (TDL508) opened to sterile field. 9:54:40 --------ALL STOP TIME OUT------ 9:54:40 Final Timeout: patient, procedure, and site verified with staff and physician. All members of the team are in agreement. 9:54:42 Right groin site verified by team. 9:54:44 Fire Safety Assessment: A--An alcohol-based skin anteseptic being used preoperatively., C--Open oxygen or nitrous oxide is being used., D--An ESU, laser, or fiber-optic light is being used. 9:54:47 Physical assessment completed. ASA score P 3 - A patient with severe systemic disease as per Andre Lanier MD. 9:55:14 Versed 1 mg I.V. was administered by Gaurav Cui RN; for sedation; 9:55:21 Fentanyl 50 mcg I.V. was administered by Gaurav Cui RN; for sedation; 9:55:54 2) 60-89 Mildly reduced kidney function, and other findings (as for stage 1) point to kidney disease. 9:55:59 Maximum allowable contrast dose (3.7 X eGFR X 0.75)167 ml. 9:56:02 Sedation plan: IV Moderate Sedation Medication:Versed, Fentanyl 9:56:07 Procedure started. 9:56:25 SHEATH 6FR ARROW 45cm (CL-86742) opened to sterile field. 9:56:44 A 6 Fr Short sheath was inserted into the Right Femoral artery 9:57:11 A DIAGNOSTIC UF 5Fr catheter ([id number]) was advanced over the wire and used for Procedure. 9:57:24 GLIDE WIRED USED TO ADVANCED UF 9:57:45 WIRE ADVANCED AROUND HORN. 9:57:51 UF REMOVED OVER WIRE 9:58:06 Sheath upsized to a 6 Fr Long. 9:58:45 LONG SHEATH ADVANCED AROUND THE HORN 9:59:05 Heparin Bolus 4000 units I.V. was administered by Gaurav Cui RN; for anticoagulation; verified with dr lanier 10:00:39 ACT drawn and resulted at 296 seconds. (normal therapeutic range 180-240 seconds). 10:01:09 CHOICE PT Extra Support J 300cm guide wire ([id number]) opened to sterile field. 10:01:27 CHOICE ES 300 ADVANCED ACROSS THE LESION 10:02:15 LASER Turbo-Power 2.0 atherectomy catheter (389874) opened to sterile field. 10:02:48 Procedure type changed to Cath procedure, Peripheral vascular Intervention, Atherectomy, Atherectomy Fem/Pop w/Plasty, Stent, Stent-Fem/Popw/plasty 10:03:52 Laser pass to Left Superficial Femoral with Fluence of 60 and Rate of 80. 10:04:23 Versed 1 mg I.V. was administered by Gaurav Cui RN; for sedation; 10:04:27 Fentanyl 50 mcg I.V. was administered by Gaurav Cui RN; for sedation; 10:06:46 Laser total pulses delivered: 3200 10:06:49 Laser total treatment time: 1 minutes 57 seconds 10:06:53 Laser catheter removed. 10:08:31 Inflate balloon Inflation number: 1 A POWERFLEX PRO 6.0 x 40 x 135cm balloon ([id number]) was prepped and advanced across the Proximal Common Femoral, Left , then inflated to 17 WIN for 0:10 (min:sec) . 10:08:34 Versed 0.5 mg I.V. was administered by Gaurav Cui RN; for sedation; 10:08:38 Fentanyl 25 mcg I.V. was administered by Gaurav Cui RN; for sedation; 10:10:06 Inflation number: 1 The POWERFLEX PRO 6.0 x 40 x 135cm balloon ([id number]) was reinflated across the Distal Common Femoral, Left , to 17 WIN for 0:00 (min:sec) . 10:10:21 Balloon removed over the wire. 10:12:16 SMART 6 X 40 X 120 stent ([id number]) was deployed across Distal Common Femoral, Left . 10:12:22 Stent catheter was removed intact over wire. 10:13:59 LONG SHEATH EXCHANGED FOR A SHORT SHEATH 10:14:12 EXOSEAL 6Fr (EX600) opened to sterile field. 10:14:41 Sheath removed intact; hemostasis achieved with Exoseal to the Right Femoral artery. 10:14:44 Procedure ended.(Physican Out) 10:15:08 Fluoroscopy time 05.90 minutes. 10:15:21 Flurop Dose total: 76 10:15:21 Fluoroscopy dose: 76 mGy 10:15:24 Dose Area Product 9090 mGy/cm. 10:15:28 Contrast amount:Isovue 300 61ml. 10:15:31 Maximum allowable dose exceeded? No. 10:15:32 Sharps counted by scrub and verified by R.N. 10:15:35 Post-op/insertion site Right Femoral artery dressed using a 4 x 4 and Tegaderm. 10:15:45 Post-procedure physical assessment completed. ASA score P 3 - A patient with severe systemic disease as per Andre Lanier MD. 10:15:48 Post procedure rhythm: sinus rhythm 10:15:51 Estimated blood loss: 10 ml 10:15:52 Post procedure instruction explained to patient.Patient verbalizes understanding. 10:15:52 Patient needs reinforcement of post procedure teaching. 10:17:03 Procedure and supply charges have been captured, reviewed, submitted and are correct. 10:17:05 Procedure Complication : No complications 10:18:53 Vital chart was stopped 10:18:54 See physician's report for complete and final results. 10:18:55 Report given to Pre/Post Procedure Room. 10:18:58 Patient transfered to Pre/Post Procedure Room with Bed. 10:19:12 Procedure ended. 10:19:12 Full Disclosure recording stopped 10:19:16 End room use (Document Last) Intervention Summary Intervention Notes Time ActionType Lesion and Equipment Action# Pressure Duration Attributes Used 10:08:31 Inflate Proximal POWERFLEX 1 17 00:10 balloon Common PRO 6.0 x Femoral, 40 x 135cm Left balloon ([id number]) 10:10:06 Reinflate Distal POWERFLEX 1 17 00:00 balloon Common PRO 6.0 x Femoral, 40 x 135cm Left balloon ([id number]) 10:12:16 Deploy self Distal SMART 6 X 1 expanding Common 40 X 120 stent Femoral, stent Left ([id number]) Device Usage Item Name Manufacture Quantity Catalog Number [facility] Lot# / Charge Number Stock Stock Serial# Code ACIST Acist 1 72376 694093 911511 692764 20 Syringe Medical (19439) Systems Inc ACIST Hand Acist 1 92136 057074 392878 193465 5 Control Medical (72243) Systems Inc ACIST Acist 1 49449 141041 037025 430823 5 Manifold Medical (02152) Systems Inc Medline Medline 1 [id number] 804434 09336 253974 5 Cath Pack ([id number]) Bag Microtek 1 989978 71266 831595 5 Decanter [employer] () EMERALD Cardinal 1 063-962 197895 110369 731274 5 Guide Wire [facility] (017-210) GLIDE WIRE Terumo 1 LL1807 746739 218336 352061 5 Super Stiff Angled 260cm (OI3982) INFLATOR Merit 1 TW2426 220671 238022 565386 15 [facility] Medical BasixCompak (DS9464) SHEATH 6FR Terumo 1 SHS191 323674 264338 518588 40 Coarsegold (HMO997) SHEATH 6FR Teleflex 1 CL-41897 195671 552686 946101 5 ARROW 45cm (CL-56083) DIAGNOSTIC Cardinal 1 [id number] 434862 110223 053058 10 UF 5Fr Health catheter (205261V8) CHOICE PT Whiting 1 [id number] 291270 637418 388708 5 Extra Scientific Support J 300cm guide wire ([id number]) LASER Jenelle 1 420-050 781914 360489363 464553 5 Visibiz 2.0 (069577) atherectomy catheter (794458) POWERFLEX Cardinal 1 [id number] 026332 151412 031372 5 PRO 6.0 x Health 40 x 135cm balloon ([id number]) SMART 6 X Cardinal 1 [id number] 135038 742198 038035 0 40 X 120 Health stent ([id number]) EXOSEAL 6Fr Cardinal 1 EX600 096159 534673 148490 10 (EX600) Health Signature Audit [place] Stage Time Signature Unsigned Intra-Procedure 03/13/2019 Amy Webb 10:24:25 AM RT(R) Signatures Performing Physician : Signature : Andre Lanier MD Date : Time : Nurse : Gaurav Cui RN Signature : Date : Time : Monitor : Amy Webb Signature : RT Date : Time : [place] [address] [address] [place] [place] [address]
[~2019-03-13 07:27] MED LIST changes: +EFFIENT10 MG PO; +HYDROXYCHLOROQUINE PO; +OMEPRAZOLE40 MG PO
[2019-03-13 07:57] VITALS: BP 154/70; Ht 157.5 cm; Wt 52.7 kg
[2019-03-13 08:22] LABS: BASOPHILS 0.3 % (0-2); EOSINOPHILS 1.7 % (0-7); HEMATOCRIT 39.8 % (36.0-48.0); HEMOGLOBIN 13.1 g/dL (12-16); IMMATURE GRANULOCYTES 0.6 % (0-5); LYMPHOCYTES 30.9 % (15-50); MCHC 32.9 g/dL (31.0-37.0); MCV 91.3 fL (80.0-100.0); MEAN PLATELET VOLUME 9.2 fL (7.4-10.4); NEUTROPHILS 56.5 % (40-80); RBC 4.36 10x6/uL (4.00-5.40); RDW 13.1 % (11.5-14.5); WBC 9.7 10x3/uL (4.8-10.8)
[2019-03-13 08:29] LABS: ANION GAP 13.1 mmol/L (8-16); CALCIUM 10.3 mg/dL (8.5-10.1); CARBON DIOXIDE 30.2 mmol/L (21.0-32.0); CREATININE - SERUM 0.9 mg/dL (0.6-1.3); PLATELET COUNT 387 10x3/uL (130-400); POTASSIUM - SERUM 3.3 mmol/L (3.5-5.1)
--- NOTE | 2019-03-13 10:31 | NUR ---
PT ARRIVED BY STRETCHER. PLACED ON MONITORS. ASSESSMENT COMPLETED. FAMILY AT BEDSIDE. CALL LIGHT WITHIN REACH.
--- NOTE | 2019-03-13 10:46 | NUR ---
PT RESTING COMFORTABLY. RIGHT GROIN DRESSING C/D/I. NO S/S OF HEMATOMA NOTED. CALL LIGHT WITHIN REACH. VSS. FAMILY AT BEDSIDE. NO NEEDS AT THIS TIME. DENIES PAIN/NAUSEA
--- NOTE | 2019-03-13 11:15 | NUR ---
PT RESTING COMFORTABLY. RIGHT GROIN DRESSING C/D/I. NO S/S OF HEMATOMA NOTED. FAMILY AT BEDSIDE. VSS. NO NEEDS AT THIS TIME. CALL LIGHT WITHIN REACH.
--- NOTE | 2019-03-13 11:45 | NUR ---
RIGHT GROIN DRESSING C/D/I. NO S/S OF HEMATOMA NOTED. CALL LIGHT WITHIN REACH. FAMILY AT BEDSIDE. VSS. NO NEEDS AT THIS TIME. DENIES NAUSEA. BP 101/54. HR 77
--- NOTE | 2019-03-13 12:15 | NUR ---
RIGHT GROIN DRESSING C/D/I. NO S/S OF HEMATOMA NOTED. CALL LIGHT WITHIN REACH. RIGHT PEDAL PULSE PALPABLE. VSS. NO NEEDS AT THIS TIME.
--- NOTE | 2019-03-13 12:57 | NUR ---
RIGHT GROIN DRESSING C/D/I. NO S/S OF HEMATOMA NOTED. VSS. CALL LIGHT WITHIN REACH. NO NEEDS AT THIS TIME. FAMILY AT BEDSIDE.
--- NOTE | 2019-03-13 13:33 | NUR ---
RIGHT GROIN DRESSING C/D/I. NO S/S OF HEMATOMA NOTED. HEAD OF BED INC TO 30 DEGREES. TOLERATED WELL. SET UP WITH SANDWICH TRAY AND DRINK. VSS. CALL LIGHT WITHIN REACH. PT MORE ALERT.
--- NOTE | 2019-03-13 14:14 | NUR ---
PIV D/C'D WITH CATH TIP INTACT. PT TOLERATED WELL. BRUISING NOTED AT TAPE SITES. PT REPORTS SHE BRUISES VERY EASILY. BRUISING NOTED FROM WHERE BAND WAS TIED AROUND RIGHT UPPER ARM FROM IV START AND ALSO BRUISING NOTED TO LEFT GROIN FROM PRIOR AFRO. THIS SITE IS HEALING WELL. ATTMEPTED TO EASILY REMOVE TAPE, BUT PT STILL BRUISED SLIGHTLY.
--- NOTE | 2019-03-13 14:15 | NUR ---
DISCUSSED DISCHARGE INSTRUCTIONS WITH PT AND PT'S FAMILY. THEY VOICED UNDERSTANDING.
--- NOTE | 2019-03-13 14:25 | NUR ---
PT TAKEN OUT TO VEHICLE BY WHEELCHAIR. NO S/S OF DISTRESS NOTED. ALL BELONGINGS AND PAPERWORK IN HAND.
--- NOTE | 2019-03-25 14:31 | OP ---
PATIENT NAME: ALISIA GOMES MEDICAL RECORD: [id number] :51 LOCATION:D.CAT ADMISSION DATE: SURGEON: CLARA PALACIOS MD DATE OF OPERATION: 03/13/2019 PROCEDURES: 1. Laser atherectomy, left SFA. 2. COOLER ROOM WORKER stent, left SFA. 3. Unilateral extremity angiography. INDICATIONS: Claudication and peripheral vascular disease. PROCEDURE PERFORMED: After informed consent was obtained and after detailed explanation of risks and benefits as well as alternative therapies, the patient elected to proceed with angiogram and angioplasty. The right femoral area was prepped and draped in normal sterile fashion. Right femoral artery was cannulated via modified Seldinger technique with placement of 6-Palestinian opuuga-dfx-lxuj sheath. All catheters exchanged through this sheath. FINDINGS: The left SFA has a previously placed stent with 70% in-stent restenosis as well. There is a secondary 70% lesion distal to that. The in-stent restenosis was addressed with a laser atherectomy and a 6 x 40 balloon. The de rocael lesion was addressed with 6 x 40 balloon yielding suboptimal result with severe intimal dissection. Stenting was undertaken with a 6 x 40 SMART stent. Result was 0% residual. OVERALL IMPRESSION: Successful laser atherectomy, COOLER ROOM WORKER stent of the left SFA going from 70% initial stenosis to 0% residual. TRANSINT:[id number] Voice Confirmation ID: [id number] DOCUMENT ID: [id number] CLARA PALACIOS MD at 1431 CC: [id number] DICTATION DATE: 03/13/19 1020 CAR REFINISHER: 03/13/19 1104 DEP CLI 03/13/19 [place] [id number]
== END 2019-03-13 14:25 | disposition home or self-care (01) ==
LOC: D.CATH 07:27
PROVIDERS: ATTEND Internal Medicine Interventional Cardiology
DX: I70.212 Atherosclerosis of native arteries of extremities with intermittent claudication, left leg (principal); T82.856A Stenosis of peripheral vascular stent, initial encounter; Z01.812 Encounter for preprocedural laboratory examination

== ENCOUNTER → 2019-03-27 08:18 | Outpatient (CLI) | payer MEDICARE ==
[2019-03-13 07:57] VITALS: BMI 21.2
== END | disposition home or self-care (01) ==
LOC: D.RT 03-13 11:00
PROVIDERS: ATTEND Internal Medicine Pulmonary Disease
DX: J44.9 Chronic obstructive pulmonary disease, unspecified (principal)

== ENCOUNTER 2019-06-28 11:06 | Inpatient (IN) | payer MEDICARE ==
[~2019-06-28] VITALS: Ht 157.5 cm; Wt 51.7 kg
[2019-06-28] MEDS ORDERED: FLAGYL500 MG PO (11:14)
[2019-06-28] MEDS ORDERED: LOPRESSOR25 MG PO (11:14)
[2019-06-28 11:33] LABS: APPEARANCE CLEAR (CLEAR); COLOR YELLOW (YELLOW); NITRITE NEGATIVE (NEGATIVE); SPECIFIC GRAVITY 1.025 (1.005-1.020)
[2019-06-28 11:34] LABS: BILIRUBIN NEGATIVE (NEGATIVE); GLUCOSE NEGATIVE (NEGATIVE); KETONE MODERATE mg/dL (NEGATIVE); PROTEIN NEGATIVE (NEGATIVE); UROBILINOGEN NORMAL (NORMAL)
[2019-06-28 11:57] LABS: BASOPHILS 0.2 % (0-2); EOSINOPHILS 0.6 % (0-7); HEMATOCRIT 43.8 % (36.0-48.0); HEMOGLOBIN 14.1 g/dL (12-16); IMMATURE GRANULOCYTES 0.3 % (0-5); MCH 29.9 pg (26.0-34.0); MCHC 32.2 g/dL (31.0-37.0); MEAN PLATELET VOLUME 9.6 fL (7.4-10.4); NEUTROPHILS 70.9 % (40-80); PLATELET COUNT 458 10x3/uL (130-400); RBC 4.71 10x6/uL (4.00-5.40); RDW 12.8 % (11.5-14.5); WBC 8.8 10x3/uL (4.8-10.8)
[2019-06-28 12:05] LABS: ALBUMIN 3.5 g/dL (3.4-5.0); ALKALINE PHOSPHATASE 89 U/L (46-116); ALT (SGPT) 17 U/L (10-68); AMYLASE - SERUM 53 U/L (25-115); BILIRUBIN - TOTAL 0.39 mg/dL (0.2-1.3); CALC OSMOLALITY 274 mosm/kg (275-300); CALCIUM 10.4 mg/dL (8.5-10.1); CARBON DIOXIDE 22.6 mmol/L (21.0-32.0); CHLORIDE - SERUM 98 mmol/L (98-107); CREATININE - SERUM 0.8 mg/dL (0.6-1.3); LIPASE 88 U/L (73-393); POTASSIUM - SERUM 4.2 mmol/L (3.5-5.1); PROTEIN - SERUM 8.5 g/dL (6.4-8.2); SODIUM 138 mmol/L (136-145); UREA NITROGEN 15 mg/dL (7-18); eGFR NON AFRICAN AMERICAN 76 mL/min (90-120)
--- NOTE | 2019-06-28 12:06 | NUR ---
C-DIFF PRECAUTIONS IN PLACE.
[2019-06-28 12:08] LABS: GLUCOSE 54 mg/dL (74-106)
[2019-06-28 16:38] VITALS: BP 140/67
--- NOTE | 2019-06-28 19:48 | NUR ---
1700 ARRIVED TO UNIT PER STRETCHER, NO DISTRESS NOTED, IN ISOLATION FOR C DIFF, IV INFUSING AT 75 PER RFA, MOVED SELF TO BED, CONT TO MONITOR
[2019-06-28 20:11] VITALS: BP 140/55
[2019-06-29 00:15] VITALS: BP 151/65
--- NOTE | 2019-06-29 02:00 | NUR ---
pATIENT RESTING IN BED WITH NO NEEDS NOTED OR STATED CALL LIGHT AND WATER IN REACH BED LOW, RESPRATIONS EVEN AND UNLABORED /
[2019-06-29 04:31] VITALS: BP 155/68
[2019-06-29 05:58] LABS: BASOPHILS 0.2 % (0-2); EOSINOPHILS 1.7 % (0-7); IMMATURE GRANULOCYTES 0.2 % (0-5); LYMPHOCYTES 23.9 % (15-50); MCH 29.3 pg (26.0-34.0); MCHC 31.4 g/dL (31.0-37.0); MCV 93.3 fL (80.0-100.0); MEAN PLATELET VOLUME 9.4 fL (7.4-10.4); MONOCYTES 14.4 % (2-11); NEUTROPHILS 59.6 % (40-80); RDW 12.9 % (11.5-14.5)
[2019-06-29 06:08] LABS: HEMATOCRIT 33.4 % (36.0-48.0); HEMOGLOBIN 10.5 g/dL (12-16); PLATELET COUNT 361 10x3/uL (130-400); RBC 3.58 10x6/uL (4.00-5.40); WBC 6.5 10x3/uL (4.8-10.8)
[2019-06-29 07:28] VITALS: BP 136/65
[2019-06-29 07:30] LABS: % SATURATION 17 % (15-55); IRON 34 ug/dl (35-150); TOTAL IRON BIND CAPACITY 191 ug/dl (260-445); UNSAT IRON BIND CAPACITY 157 ug/dl (150-375)
--- NOTE | 2019-06-29 07:42 | NUR ---
ALERT AND ORIENTED. LUNGS CLEAR BILATERALLY. BOWEL SOUNDS ACTIVE X 4. SKIN INTACT WITHOUT REDNESS. IV TO RFA PATENT WITHOUT REDNESS. O2 IN PLACE AT 2L NC. DENIES NEEDS. BED LOW. CALL SOTO AND PERSONAL ITEMS IN REACH. WILL CONTINUE TO MONITOR.
[2019-06-29 08:13] LABS: ALKALINE PHOSPHATASE 64 U/L (46-116); ALT (SGPT) 15 U/L (10-68); BILIRUBIN - TOTAL 0.25 mg/dL (0.2-1.3); CALCIUM 8.5 mg/dL (8.5-10.1); CARBON DIOXIDE 19.7 mmol/L (21.0-32.0); CHLORIDE - SERUM 104 mmol/L (98-107); CREATININE - SERUM 0.7 mg/dL (0.6-1.3); FERRITIN 88 ng/mL (3-244); LDH 137 U/L (81-234); MAGNESIUM - SERUM 1.3 mg/dL (1.8-2.4); POTASSIUM - SERUM 3.9 mmol/L (3.5-5.1); SODIUM 139 mmol/L (136-145); eGFR NON AFRICAN AMERICAN 89 mL/min (90-120)
[2019-06-29 08:16] LABS: ALBUMIN 2.5 g/dL (3.4-5.0); CALC OSMOLALITY 271 mosm/kg (275-300); GLUCOSE 48 mg/dL (74-106); PROTEIN - SERUM 5.5 g/dL (6.4-8.2); UREA NITROGEN 5 mg/dL (7-18)
--- NOTE | 2019-06-29 08:25 | NUR ---
LAB STATES PATIENT BLOOD SUGAR 48. FSBS RECHECK 53. INDIRA IGLESIAS NOTIFIED. PATIENT GIVE X 2 ORANGE JUICE PER MAIL SORTER. STATES WILL DRINK. WILL RECHECK BLOOD SUGAR.
--- NOTE | 2019-06-29 09:16 | NUR ---
BLOOD SUGAR 83 ON RECHECK.
[2019-06-29 11:48] VITALS: BP 136/68
--- NOTE | 2019-06-29 12:14 | NUR ---
IV LEAKING TO RFA. RESITED TO LFA AFTER ONE ATTEMPT WITH 22 GAUGE. IV REMOVED FROM RFA WITH TIP INTACT.
[2019-06-29 13:09] VITALS: Ht 157.5 cm; Wt 51.7 kg
--- NOTE | 2019-06-29 13:30 | NUR ---
SPOKE WITH PATIENT'S DAUGHTER IRIS WITH PATIENT'S PERMISSION. DAUGHTER ADDED EMERGENCY CONTACT PER PATIENT'S REQUEST. DR GUNDERSON NOTIFIED THAT PATIENT'S DAUGHTER WOULD LIKE HIM TO CALL HER. STATES WILL CALL.
--- NOTE | 2019-06-29 14:44 | NUR ---
RESTING IN BED. DENIES NEEDS. WILL CONTINUE TO MONITOR.
--- NOTE | 2019-06-29 15:26 | NUR ---
PATIENT STILL WITH NO BM.
--- NOTE | 2019-06-29 16:20 | NUR ---
PATIENT REQUESTING HOME MEDS RESTARTED. CALLED DR GUNDERSON WITH NO ANSWER. VOICEMAIL LEFT TO CALL BACK.
--- NOTE | 2019-06-29 16:25 | NUR ---
SPOKE WITH DR GUNDERSON WHO STATES OK TO RESTART PATIENT'S HOME DOSES OF ASA, HYDROXYCHLOROQUINE, LOPRESSOR AND NORVASC.
--- NOTE | 2019-06-29 20:00 | NUR ---
ALERT SITTING UP IN BED, REPORTS BACK PAIN AND DIFFICULTY GETTING UP OUT OF BED, NO BM SO FAR TODAY, SEE SHIFT ASSESSMENT, CALL LIGHT IN REACH
[2019-06-29 20:54] VITALS: BP 145/76
[2019-06-30 01:10] VITALS: BP 133/77
[2019-06-30 05:11] VITALS: BP 166/72
[2019-06-30 06:46] LABS: BASOPHILS 0.1 % (0-2); HEMOGLOBIN 10.2 g/dL (12-16); IMMATURE GRANULOCYTES 0.1 % (0-5); LYMPHOCYTES 19.2 % (15-50); MCH 29.4 pg (26.0-34.0); MCHC 31.9 g/dL (31.0-37.0); MCV 92.2 fL (80.0-100.0); MEAN PLATELET VOLUME 9.5 fL (7.4-10.4); MONOCYTES 14.9 % (2-11); NEUTROPHILS 64.7 % (40-80); PLATELET COUNT 355 10x3/uL (130-400); RBC 3.47 10x6/uL (4.00-5.40); RDW 12.7 % (11.5-14.5)
[2019-06-30 06:48] LABS: ALBUMIN 2.4 g/dL (3.4-5.0); ALKALINE PHOSPHATASE 65 U/L (46-116); BILIRUBIN - TOTAL 0.23 mg/dL (0.2-1.3); CALCIUM 8.8 mg/dL (8.5-10.1); CHLORIDE - SERUM 100 mmol/L (98-107); CREATININE - SERUM 0.6 mg/dL (0.6-1.3); MAGNESIUM - SERUM 1.6 mg/dL (1.8-2.4); POTASSIUM - SERUM 3.6 mmol/L (3.5-5.1); PROTEIN - SERUM 6.4 g/dL (6.4-8.2); SODIUM 134 mmol/L (136-145); UREA NITROGEN 5 mg/dL (7-18); eGFR NON AFRICAN AMERICAN > 90 mL/min (90-120)
[2019-06-30 06:49] LABS: ALT (SGPT) 11 U/L (10-68); CALC OSMOLALITY 264 mosm/kg (275-300); CARBON DIOXIDE 26.2 mmol/L (21.0-32.0); GLUCOSE 93 mg/dL (74-106)
--- NOTE | 2019-06-30 07:25 | NUR ---
REC'D IN BED AWAKE AND ALERT. RESP EVEN AND UNLABORED WITH NO DISTRESS NOTED. CAN EXPRESS NEEDS AND WANTS. NO C/O NOTED OR VOICED. ASSESSMENT COMPLETED. FAMILY AND C/L IN REACH AT BEDSIDE.
[2019-06-30 09:05] VITALS: BP 151/70
[2019-06-30 12:50] VITALS: BP 147/79
--- NOTE | 2019-06-30 15:25 | NUR ---
C/O ABD PAIN RATING 8/10 ON PAIN SCALE WAS MEDICATED WITH ULTRAM PER ORDERS. C/L IN REACH AT BEDSIDE
[2019-06-30 16:38] VITALS: BP 154/76
--- NOTE | 2019-06-30 18:37 | NUR ---
I have reviewed this patient and I concur with the Shift Assessment completed by the Licensed Practical Nurse today this shift.
[2019-06-30 19:30] VITALS: BP 139/60
--- NOTE | 2019-06-30 20:00 | NUR ---
ALERT RESTING IN BED C/O NAUSEA, INFORMED HAS ZOFRAN DRIP GOING, COOL WET WASH CLOTH GIVEN, SEE SHIFT ASSESSMENT, CALL LIGHT IN REACH
[2019-07-01 00:59] VITALS: BP 141/68
[2019-07-01 05:34] VITALS: BP 150/72
[2019-07-01 06:52] LABS: BASOPHILS 0.2 % (0-2); EOSINOPHILS 1.7 % (0-7); HEMATOCRIT 36.9 % (36.0-48.0); IMMATURE GRANULOCYTES 0.2 % (0-5); LYMPHOCYTES 17.1 % (15-50); MCH 31.3 pg (26.0-34.0); MCHC 34.1 g/dL (31.0-37.0); MCV 91.8 fL (80.0-100.0); MEAN PLATELET VOLUME 9.2 fL (7.4-10.4); MONOCYTES 13.8 % (2-11); PLATELET COUNT 304 10x3/uL (130-400); RBC 4.02 10x6/uL (4.00-5.40); RDW 12.5 % (11.5-14.5); WBC 5.7 10x3/uL (4.8-10.8)
[2019-07-01 06:59] LABS: HEMOGLOBIN 12.6 g/dL (12-16)
[2019-07-01 07:11] LABS: ALBUMIN 2.5 g/dL (3.4-5.0); ALKALINE PHOSPHATASE 64 U/L (46-116); BILIRUBIN - TOTAL 0.25 mg/dL (0.2-1.3); CALC OSMOLALITY 266 mosm/kg (275-300); CALCIUM 8.4 mg/dL (8.5-10.1); CARBON DIOXIDE 30.4 mmol/L (21.0-32.0); CHLORIDE - SERUM 100 mmol/L (98-107); GLUCOSE 100 mg/dL (74-106); MAGNESIUM - SERUM 1.7 mg/dL (1.8-2.4); POTASSIUM - SERUM 3.5 mmol/L (3.5-5.1); PROTEIN - SERUM 5.9 g/dL (6.4-8.2); SODIUM 135 mmol/L (136-145); UREA NITROGEN 4 mg/dL (7-18)
[2019-07-01 07:26] LABS: ALT (SGPT) 14 U/L (10-68); CREATININE - SERUM 0.4 mg/dL (0.6-1.3); eGFR NON AFRICAN AMERICAN > 90 mL/min (90-120)
[2019-07-01 07:30] LABS: PHOSPHOROUS 1.3 mg/dL (2.5-4.9)
--- NOTE | 2019-07-01 08:20 | NUR ---
NUTRITION F/U CLEAR LIQUID DIET. PROCALAMINE STARTED AT 50 CC/HR. PROVIDES 294 KCAL, 36 GM PROTEIN PER DAY. WILL MONITOR DIET ADVANCEMENT, PO INTAKE. RD FOLLOWING
[2019-07-01 08:54] VITALS: BP 176/75
--- NOTE | 2019-07-01 09:30 | MORECARE ---
CASE MANAGEMENT DISCHARGE SUMMARY PATIENT: ALISIA GOMES UNIT: [id number] ADM DATE: 06/28/19 AGE: 64 : 53 SEX: F ROOM/BED: D.2201 AUTHOR: MILES FREIRE PHYSICIAN: REFERRING PHYSICIAN: CROW GUNDERSON MD DATE OF SERVICE: 07/01/19 Discharge Plan Patient Name: ALISIA GOMES Facility: [facility]:[place] : 1955 Planned Disposition: Home or Self Care Anticipated Discharge Date: Discharge Date: Expected LOS: Initial Reviewer: [email or web address] Initial Review Date: 06/28/2019 Generated: 07/01/19 10:30 am Comments DCP- Discharge Planning Updated by [id number]: Jeny Streeter on 07/01/19 8:[address] Patient Name: ALISIA GOMES Admission Status: ER Accout number: [id number] Admission Date: 06-28-2019 : 1955 Admission Diagnosis:ENTEROCOLITIS D/T CLOSTRIDIUM DIFFICILE, NOT SPCF RE Attending: CROW GUNDERSON Current LOS: 3 Anticipated DC Date: Planned Disposition: Home or Self Care Primary Insurance: [employer] MEDICARE ADV Discharge Planning Comments: CM met with patient to complete initial dc planning assessment. CM educated patient on the CM role and verbal consent given by patient to complete assessment. Patient lives at home with her spouse where she states that she is independent with her care. At discharge patient plans to return home and feels this is a safe discharge. CM discussed availability of home health, rehab services, and medical equipment. She did not want home health. She stated that she has a nebulizer, walker, O2 Concentrator and portable O2 concentrator. She owns the O2 concentrators and got her Nebulizer with [facility], but is not happy with them and would like to use [facility]. She is having issues with their billing. She signed a MUKUL for [facility]. She has a walker, but may need a new one? She stated that her will be her party bus driver home at discharge. Patient denied known discharge needs at this time. CM will continue to follow and will assist as needed with dc plans/needs Learning Administrator: Jeny Streeter DCPIA - Discharge Planning Initial Assessment Updated by [id number]: Jeny Streeter on 07/01/19 9:26 am * Is the patient Alert and Oriented? Yes * How many steps to enter\exit or inside your home? * PCP JOSE * Pharmacy [facility] * Preadmission Environment Home with Family * ADLs Independent * Equipment Nebulizer Oxygen Walker * Other Equipment O2 CONCENTRATOR * List name and contact numbers for known caregivers / representatives who currently or will assist patient after discharge: MAHAMED - SPOUSE [phone] * Verbal permission to speak to the caregivers and representatives has been obtained from the patient. N/A * Community resources currently utilized None * Additional services required to return to the preadmission environment? No * Can the patient safely return to the preadmission environment? Yes * Has this patient been hospitalized within the prior 30 days at any hospital? No Coverage Notice Reviewer: [id number] - Jeny Streeter Notice Issued Date-Time: 07/01/2019 8:05 Notice Type: Patient Choice Letter Notice Delivered To: Patient Relationship to Patient: Second Hand Paper Machine Name: Delivery Method: HAND - Hand Delivered Ryann Days: Prior Verbal Notification: Recipient Understood Notice: Yes Recipient Signature: Yes Med Rec Note Co-signed by Attending: Coverage Notice Comment: FLORINDA KC REFUSAL ON [facility] PATIENT Patient Name: ALISIA GOMES Page [phone] at 0930 All edits/amendments must be made on the electronic document DICTATION DATE: 07/01/19929 UNDER TRIMMER: ERIK 07/01/19929 RPT#: [id number] DC DATE: STATUS: ADM IN [facility] [address] [place] [address] END OF REPORT
[2019-07-01] MEDS ORDERED: IPRAT-ALBUT 0.5-3 ML IH (09:56)
[2019-07-01 12:46] VITALS: BP 130/72
--- NOTE | 2019-07-01 13:10 | NUR ---
RESTING IN BED, NO DISTRESS NOTED, REMAINS IN ISOLATION, IV INFUSING AND ZOFRAN, DAUGHTER UPDATED, PT WITH POOR APPETITE
[2019-07-01 17:03] VITALS: BP 142/71
--- NOTE | 2019-07-01 19:27 | NUR ---
PATIENT RESTING IN BED WITH GUEST AT BEDSIDE AND DENIES NEEDS AT THIS TIME. BED IN LOWEST POSITION AND CALL LIGHT WITHIN REACH. ENCOURAGED THE PATIENT TO CALL IF SHE HAS NEEDS. WILL CONTINUE TO MONITOR.
[2019-07-01 20:00] VITALS: BP 148/77
[2019-07-02] VITALS: BP 148/73
[2019-07-02 04:00] VITALS: BP 151/75
[2019-07-02 06:29] LABS: BASOPHILS 0.2 % (0-2); EOSINOPHILS 3.2 % (0-7); HEMATOCRIT 35.3 % (36.0-48.0); HEMOGLOBIN 11.3 g/dL (12-16); IMMATURE GRANULOCYTES 0.4 % (0-5); LYMPHOCYTES 24.1 % (15-50); MCH 29.6 pg (26.0-34.0); MCV 92.4 fL (80.0-100.0); MEAN PLATELET VOLUME 9.4 fL (7.4-10.4); MONOCYTES 16.5 % (2-11); NEUTROPHILS 55.6 % (40-80); PLATELET COUNT 331 10x3/uL (130-400); RBC 3.82 10x6/uL (4.00-5.40); RDW 12.6 % (11.5-14.5)
[2019-07-02 06:59] LABS: ALBUMIN 2.5 g/dL (3.4-5.0); ALKALINE PHOSPHATASE 66 U/L (46-116); BILIRUBIN - TOTAL 0.13 mg/dL (0.2-1.3); CALC OSMOLALITY 275 mosm/kg (275-300); CALCIUM 8.9 mg/dL (8.5-10.1); CARBON DIOXIDE 32.5 mmol/L (21.0-32.0); CHLORIDE - SERUM 101 mmol/L (98-107); CREATININE - SERUM 0.4 mg/dL (0.6-1.3); GLUCOSE 94 mg/dL (74-106); MAGNESIUM - SERUM 1.8 mg/dL (1.8-2.4); POTASSIUM - SERUM 3.7 mmol/L (3.5-5.1); PROTEIN - SERUM 5.9 g/dL (6.4-8.2); SODIUM 140 mmol/L (136-145); UREA NITROGEN 4 mg/dL (7-18); eGFR NON AFRICAN AMERICAN > 90 mL/min (90-120)
[2019-07-02 07:00] LABS: PHOSPHOROUS 1.8 mg/dL (2.5-4.9)
[2019-07-02 07:01] LABS: ALT (SGPT) 10 U/L (10-68)
--- NOTE | 2019-07-02 07:15 | NUR ---
PATIENT AWAKE. NO NEEDS AT THIS TIME. CL IN REACH. WCTM
[2019-07-02 08:00] VITALS: BP 140/67
--- NOTE | 2019-07-02 10:38 | NUR ---
PATIENT SITTING UP IN BED. NO NEEDS AT THIS TIME. CL IN REACH. WCTM
[2019-07-02 12:00] VITALS: BP 149/76
--- NOTE | 2019-07-02 14:06 | NUR ---
VASCULAR ACCESS CALLED FOR PIV. IN ROOM. WCTM
--- NOTE | 2019-07-02 15:03 | NUR ---
CALLED VASCULAR ACCESS ABOUT IV. SAID SHE'D "BE HERE IN A MINUTE"
--- NOTE | 2019-07-02 16:16 | NUR ---
PATIENT WITH IMAGING.
[2019-07-02 17:04] VITALS: BP 160/76
--- NOTE | 2019-07-02 17:09 | NUR ---
PATIENT EXCITED ABOUT MASHED POTATOES. IN ROOM. CL IN REACH. WCTM
[2019-07-02 20:00] VITALS: BP 115/70
[2019-07-03] VITALS: BP 147/72
[2019-07-03 04:00] VITALS: BP 148/73
[2019-07-03 06:31] LABS: BASOPHILS 0.2 % (0-2); EOSINOPHILS 3.6 % (0-7); HEMATOCRIT 35.7 % (36.0-48.0); HEMOGLOBIN 11.3 g/dL (12-16); IMMATURE GRANULOCYTES 0.6 % (0-5); LYMPHOCYTES 21.2 % (15-50); MCH 29.4 pg (26.0-34.0); MCHC 31.7 g/dL (31.0-37.0); MEAN PLATELET VOLUME 9.1 fL (7.4-10.4); MONOCYTES 18.6 % (2-11); NEUTROPHILS 55.8 % (40-80); PLATELET COUNT 337 10x3/uL (130-400); RBC 3.84 10x6/uL (4.00-5.40); RDW 12.9 % (11.5-14.5); WBC 4.7 10x3/uL (4.8-10.8)
[2019-07-03 06:49] LABS: ALBUMIN 2.4 g/dL (3.4-5.0); ALKALINE PHOSPHATASE 57 U/L (46-116); BILIRUBIN - TOTAL 0.14 mg/dL (0.2-1.3); CALC OSMOLALITY 270 mosm/kg (275-300); CALCIUM 8.7 mg/dL (8.5-10.1); CARBON DIOXIDE 35.9 mmol/L (21.0-32.0); CHLORIDE - SERUM 97 mmol/L (98-107); CREATININE - SERUM 0.5 mg/dL (0.6-1.3); GLUCOSE 97 mg/dL (74-106); MAGNESIUM - SERUM 1.8 mg/dL (1.8-2.4); PHOSPHOROUS 2.1 mg/dL (2.5-4.9); POTASSIUM - SERUM 3.3 mmol/L (3.5-5.1); PROTEIN - SERUM 6.7 g/dL (6.4-8.2); SODIUM 137 mmol/L (136-145); UREA NITROGEN 3 mg/dL (7-18); eGFR NON AFRICAN AMERICAN > 90 mL/min (90-120)
[2019-07-03 06:52] LABS: ALT (SGPT) 13 U/L (10-68)
--- NOTE | 2019-07-03 08:32 | NUR ---
PATIENT AWAKE SITTING UP IN BED. CL IN REACH. NO NEEDS AT THIS TIME. BREAKFAST TRAY PROVIDED. WCTM
[2019-07-03 09:02] VITALS: BP 154/74
--- NOTE | 2019-07-03 13:08 | NUR ---
Nutrtition follow-up: Pt continues with nausea. Diet advanced to GI bland; po intake very poor and pt refusing some meals. labs reviewed ProcalAmine PPN @ 50 ml/hr Due to above pt is now assessed with severe malnutrition of acute illness R/T +C.Diff AEB: 1. < 50% intake of estimated energy needs for > 5 days 2. moderate to severe fat, muscle loss to all extremeties temporal, clavicle, scapula wasting If po intake remains poor will need to consider additional nutrition support. RDN following.
[2019-07-03 13:25] VITALS: BP 142/75
--- NOTE | 2019-07-03 13:47 | NUR ---
PATIENT FAMILY STATES THAT PLAN A WOULD BE MEDICATION CALLED FIDAXOMICIN WOULD NOT BE AN AFFORDABLE OPTION FOR PATIENT OR FOR FAMILY. MED IS ABOVE 200 DOLLARS A PILL. THEY BELIEVE PLAN B THE FECAL TRANSPLANT INPATIENT WOULD BE BENEFICIAL AND A BETTER OPTION ECONOMICALLY FOR PATIENT AND FAMILY.
[2019-07-03 17:02] VITALS: BP 145/69
[2019-07-03 20:00] VITALS: BP 136/58
[2019-07-04] VITALS: BP 141/73
[2019-07-04 04:00] VITALS: BP 124/70
[2019-07-04 06:39] LABS: HEMATOCRIT 32.6 % (36.0-48.0); HEMOGLOBIN 10.3 g/dL (12-16); MCH 29.5 pg (26.0-34.0); MCHC 31.6 g/dL (31.0-37.0); MCV 93.4 fL (80.0-100.0); RBC 3.49 10x6/uL (4.00-5.40); RDW 13.3 % (11.5-14.5); WBC 4.8 10x3/uL (4.8-10.8)
[2019-07-04 06:40] LABS: PLATELET COUNT 427 10x3/uL (130-400)
[2019-07-04 07:09] LABS: EOSINOPHILS 3 % (0-7); LYMPHOCYTES 35 % (15-50); MONOCYTES 6 % (2-11); NEUTROPHILS 53 % (40-80); PLATELET ESTIMATE NORMAL
--- NOTE | 2019-07-04 07:30 | NUR ---
PT RESTING IN BED WITH EYES OPEN SPEAKING WITH INDIRA AGRAWAL. ALERT AND ORIENTED WITH AT THE BEDSIDE. NO S/S OF DISTRESS AT THIS TIME, DENIES NEEDS, WILL CONT TO MONITOR.
[2019-07-04 08:35] VITALS: BP 119/59
[2019-07-04 09:59] LABS: ALBUMIN 2.3 g/dL (3.4-5.0); ALKALINE PHOSPHATASE 53 U/L (46-116); ALT (SGPT) 10 U/L (10-68); BILIRUBIN - TOTAL 0.15 mg/dL (0.2-1.3); CALC OSMOLALITY 267 mosm/kg (275-300); CALCIUM 8.4 mg/dL (8.5-10.1); CARBON DIOXIDE 32.4 mmol/L (21.0-32.0); CHLORIDE - SERUM 100 mmol/L (98-107); CREATININE - SERUM 0.5 mg/dL (0.6-1.3); GLUCOSE 112 mg/dL (74-106); MAGNESIUM - SERUM 1.9 mg/dL (1.8-2.4); PHOSPHOROUS 2.1 mg/dL (2.5-4.9); POTASSIUM - SERUM 3.8 mmol/L (3.5-5.1); PROTEIN - SERUM 6.4 g/dL (6.4-8.2); SODIUM 135 mmol/L (136-145); UREA NITROGEN 5 mg/dL (7-18); eGFR NON AFRICAN AMERICAN > 90 mL/min (90-120)
[2019-07-04 13:03] VITALS: BP 129/68
[2019-07-04 16:37] VITALS: BP 136/61
--- NOTE | 2019-07-04 19:30 | NUR ---
PT SITTING UP IN BED WITHOUT DISTRESS, AOX4. AT BEDSIDE. DENIES NEEDS OR NEEDS AT THIS TIME. CL IN REACH, WILL CTM
[2019-07-04 20:00] VITALS: BP 128/57
[2019-07-05] VITALS: BP 135/65
[2019-07-05 04:00] VITALS: BP 150/71
[2019-07-05 05:59] LABS: BASOPHILS 0.3 % (0-2); EOSINOPHILS 6.5 % (0-7); HEMATOCRIT 35.8 % (36.0-48.0); IMMATURE GRANULOCYTES 0.5 % (0-5); LYMPHOCYTES 20.5 % (15-50); MCH 28.9 pg (26.0-34.0); MCHC 30.7 g/dL (31.0-37.0); MCV 94.2 fL (80.0-100.0); MEAN PLATELET VOLUME 9.5 fL (7.4-10.4); MONOCYTES 15.1 % (2-11); NEUTROPHILS 57.1 % (40-80); PLATELET COUNT 403 10x3/uL (130-400); RDW 13.5 % (11.5-14.5)
[2019-07-05 06:20] LABS: CALC OSMOLALITY 268 mosm/kg (275-300); CALCIUM 8.9 mg/dL (8.5-10.1); CARBON DIOXIDE 31.7 mmol/L (21.0-32.0); CHLORIDE - SERUM 101 mmol/L (98-107); CREATININE - SERUM 0.5 mg/dL (0.6-1.3); GLUCOSE 98 mg/dL (74-106); SODIUM 136 mmol/L (136-145); UREA NITROGEN 5 mg/dL (7-18); eGFR NON AFRICAN AMERICAN > 90 mL/min (90-120)
[2019-07-05 06:24] LABS: PHOSPHOROUS 2.7 mg/dL (2.5-4.9)
[2019-07-05 06:25] LABS: POTASSIUM - SERUM 4.5 mmol/L (3.5-5.1)
[2019-07-05 08:11] VITALS: BP 150/73
--- NOTE | 2019-07-05 10:29 | NUR ---
PATIENT RECIEVED RESTING IN BED, REPORTS SMALL FORMED BM EARLY THIS AM. CONTINUES TO HAVE NAUSEA, TOLERATED A FEW BITES OF BREAKFAST. RESPIRATIONS REGULAR AND NONLABORED, ALERT AND ORIENTED. CL IN REACH, FAMILY MEMBER AT BEDSIDE.
[2019-07-05 12:37] VITALS: BP 131/68
[2019-07-05 16:33] VITALS: BP 141/72
--- NOTE | 2019-07-05 19:40 | NUR ---
PT SITTING UP IN BED WITHOUT DISTRESS, AOX4. STATES SHE IS FEELING SLIGHTLY NAUSEOUS. UNABLE TO EAT MUCH TODAY. STATES SHE HAD 3 SMALL LIQUID BOWEL MOVEMENTS. IV RIGHT UPPER ARM INFUSING NS @ 75, PROCAL @ 50 AND ZOFRAN DRIP. ENTERIC ISOLATION IN PLACE. AT BEDSIDE. DENIES NEEDS AT THIS TIME. CL IN REACH, WILL CTM
[2019-07-05 20:35] VITALS: BP 174/78
[2019-07-06] VITALS (11 sets, daily range): BP systolic 120–151; BP diastolic 62–89
[2019-07-06 05:22] LABS: BASOPHILS 0.4 % (0-2); EOSINOPHILS 6.2 % (0-7); HEMATOCRIT 32.2 % (36.0-48.0); HEMOGLOBIN 10.1 g/dL (12-16); IMMATURE GRANULOCYTES 0.5 % (0-5); LYMPHOCYTES 24.5 % (15-50); MCH 29.1 pg (26.0-34.0); MCHC 31.4 g/dL (31.0-37.0); MCV 92.8 fL (80.0-100.0); MEAN PLATELET VOLUME 9.4 fL (7.4-10.4); MONOCYTES 19.2 % (2-11); NEUTROPHILS 49.2 % (40-80); PLATELET COUNT 439 10x3/uL (130-400); RBC 3.47 10x6/uL (4.00-5.40); RDW 13.6 % (11.5-14.5); WBC 5.7 10x3/uL (4.8-10.8)
[2019-07-06 05:41] LABS: CALC OSMOLALITY 265 mosm/kg (275-300); CALCIUM 8.9 mg/dL (8.5-10.1); CARBON DIOXIDE 28.4 mmol/L (21.0-32.0); CHLORIDE - SERUM 100 mmol/L (98-107); CREATININE - SERUM 0.4 mg/dL (0.6-1.3); GLUCOSE 88 mg/dL (74-106); POTASSIUM - SERUM 3.9 mmol/L (3.5-5.1); SODIUM 135 mmol/L (136-145); UREA NITROGEN 4 mg/dL (7-18); eGFR NON AFRICAN AMERICAN > 90 mL/min (90-120)
--- NOTE | 2019-07-06 11:03 | NUR ---
Nutrition follow-up: Pt NPO for colonoscopy today Diet: Regular mechanical soft PO intake continues to be poor Pt with ~5# weight loss since admit ProcalAmine PPN continues @ 50 ml/hr +diarrhea RDN following.
--- NOTE | 2019-07-06 19:30 | NUR ---
PT LYING IN BED SLEEPING WITHOUT DISTRESS, NO COMPLAINTS OR NEEDS. IV RIGHT UPPER ARM INFUSING NS @ 75, PROCAL @ 50 AND ZOFRAN DRIP. AT BEDSIDE, CL IN REACH. WILL CTM
[2019-07-07 00:52] VITALS: BP 132/67
[2019-07-07 04:28] VITALS: BP 136/75
[2019-07-07 06:39] LABS: BASOPHILS 0.1 % (0-2); EOSINOPHILS 4.1 % (0-7); HEMATOCRIT 32.4 % (36.0-48.0); HEMOGLOBIN 10.3 g/dL (12-16); IMMATURE GRANULOCYTES 0.5 % (0-5); LYMPHOCYTES 15.6 % (15-50); MCHC 31.8 g/dL (31.0-37.0); MCV 91.3 fL (80.0-100.0); MEAN PLATELET VOLUME 9.3 fL (7.4-10.4); MONOCYTES 15.2 % (2-11); NEUTROPHILS 64.5 % (40-80); PLATELET COUNT 393 10x3/uL (130-400); RBC 3.55 10x6/uL (4.00-5.40); RDW 13.4 % (11.5-14.5)
[2019-07-07 06:40] LABS: WBC 7.6 10x3/uL (4.8-10.8)
--- NOTE | 2019-07-07 06:45 | NUR ---
ALERT AND ORIENTED, SITTING UP IN BED. AT BEDSIDE. NO C/O PAIN. NO S/S OF ACUTE DISTRESS NOTED. ON ENTERIC PRECAUTIONS FOR C-DIFF. REFUSED SCDS. ON 2L O2, NC. RIGHT UPPER ARM PICC, NS INFUSING @ 75ML/HR AND PROCAL INFUSING @ 50ML/HR AND ZOFRAN DRIP @ 4.7ML/HR. SITE PATENT WITHOUT REDNESS OR SWELLING. DENIES ANY NEEDS AT THIS TIME. CALL LIGHT IN REACH. WILL CONTINUE TO MONITOR.
[2019-07-07 06:49] LABS: CALC OSMOLALITY 268 mosm/kg (275-300); CALCIUM 8.9 mg/dL (8.5-10.1); CARBON DIOXIDE 28.4 mmol/L (21.0-32.0); CHLORIDE - SERUM 99 mmol/L (98-107); CREATININE - SERUM 0.5 mg/dL (0.6-1.3); GLUCOSE 125 mg/dL (74-106); POTASSIUM - SERUM 3.7 mmol/L (3.5-5.1); SODIUM 135 mmol/L (136-145); eGFR NON AFRICAN AMERICAN > 90 mL/min (90-120)
[2019-07-07 06:50] LABS: UREA NITROGEN 7 mg/dL (7-18)
[2019-07-07 08:53] VITALS: BP 140/77
--- NOTE | 2019-07-07 12:01 | NUR ---
I have reviewed this patient and I concur with the Shift Assessment completed by the Licensed Practical Nurse today this shift.
[2019-07-07 12:55] VITALS: BP 143/77
[2019-07-07] MEDS ORDERED: FLAGYL500 MG PO (14:10)
--- NOTE | 2019-07-07 14:33 | MORECARE ---
CASE MANAGEMENT DISCHARGE SUMMARY PATIENT: ALISIA GOMES UNIT: [id number] ADM DATE: 06/28/19 AGE: 64 : 51 SEX: F ROOM/BED: D.2201 AUTHOR: MILES FREIRE PHYSICIAN: REFERRING PHYSICIAN: CROW GUNDERSON MD DATE OF SERVICE: 07/07/19 Discharge Plan Patient Name: ALISIA GOMES Facility: [facility]:[place] : 1955 Planned Disposition: Home or Self Care Anticipated Discharge Date: Discharge Date: Expected LOS: Initial Reviewer: [email or web address] Initial Review Date: 06/28/2019 Generated: 07/07/19 3:33 pm DCP- Discharge Planning Updated by [id number]: Jeny Streeter on 07/01/19 8:[address] Patient Name: ALISIA GOMES Admission Status: ER Accout number: [id number] Admission Date: 06-28-2019 : 1955 Admission Diagnosis:ENTEROCOLITIS D/T CLOSTRIDIUM DIFFICILE, NOT SPCF RE Attending: CROW GUNDERSON Current LOS: 3 Anticipated DC Date: Planned Disposition: Home or Self Care Primary Insurance: [employer] MEDICARE ADV Discharge Planning Comments: CM met with patient to complete initial dc planning assessment. CM educated patient on the CM role and verbal consent given by patient to complete assessment. Patient lives at home with her spouse where she states that she is independent with her care. At discharge patient plans to return home and feels this is a safe discharge. CM discussed availability of home health, rehab services, and medical equipment. She did not want home health. She stated that she has a nebulizer, walker, O2 Concentrator and portable O2 concentrator. She owns the O2 concentrators and got her Nebulizer with [facility], but is not happy with them and would like to use [facility]. She is having issues with their billing. She signed a MUKUL for [facility]. She has a walker, but may need a new one? She stated that her will be her local driver home at discharge. Patient denied known discharge needs at this time. CM will continue to follow and will assist as needed with dc plans/needs Copier Repair Technician: Jeny Streeter DCPIA - Discharge Planning Initial Assessment Updated by [id number]: Jeny Streeter on 07/01/19 9:26 am * Is the patient Alert and Oriented? Yes * How many steps to enter\exit or inside your home? * PCP JOSE * Pharmacy [facility] * Preadmission Environment Home with Family * ADLs Independent * Equipment Nebulizer Oxygen Walker * Other Equipment O2 CONCENTRATOR * List name and contact numbers for known caregivers / representatives who currently or will assist patient after discharge: MAHAMED - SPOUSE [phone] * Verbal permission to speak to the caregivers and representatives has been obtained from the patient. N/A * Community resources currently utilized None * Additional services required to return to the preadmission environment? No * Can the patient safely return to the preadmission environment? Yes * Has this patient been hospitalized within the prior 30 days at any hospital? No Coverage Notice Reviewer: [id number] - Jeny Streeter Notice Issued Date-Time: 07/01/2019 8:05 Notice Type: Patient Choice Letter Notice Delivered To: Patient Relationship to Patient: Manager Instrumentation Name: Delivery Method: HAND - Hand Delivered Ryann Days: Prior Verbal Notification: Recipient Understood Notice: Yes Recipient Signature: Yes Med Rec Note Co-signed by Attending: Coverage Notice Comment: MUKUL- [facility] REFUSAL ON [facility] PATIENT Last DP export: 07/01/19 8:30 Patient Name: ALISIA GOMES Page [phone] at 1433 All edits/amendments must be made on the electronic document DICTATION DATE: 07/07/191431 ELECTRONIC PUBLICATIONS SPECIALIST: ERIK 07/07/191431 RPT#: [id number] DC DATE: STATUS: ADM IN [facility] [address] [place] [address] END OF REPORT
--- NOTE | 2019-07-07 14:50 | MORECARE ---
CASE MANAGEMENT DISCHARGE SUMMARY PATIENT: ALISIA GOMES UNIT: [id number] ADM DATE: 06/28/19 AGE: 64 : 53 SEX: F ROOM/BED: D.2201 AUTHOR: MILES FREIRE PHYSICIAN: REFERRING PHYSICIAN: CROW GUNDERSON MD DATE OF SERVICE: 07/07/19 Discharge Plan Patient Name: ALISIA GOMES Facility: [facility]:[place] : 1955 Planned Disposition: Home or Self Care Anticipated Discharge Date: Discharge Date: Expected LOS: Initial Reviewer: [email or web address] Initial Review Date: 06/28/2019 Generated: 07/07/19 3:50 pm Comments DCP- Discharge Planning Updated by [id number]: Jeny Streeter on 07/07/19 1:[address] PATIENT DISCHARGING HOME TODAY, IMM SERVED AND EXPLAINED. PATIENT WOULD LIKE TO HAVE HOME HEALTH WITH A HH AIDE. MUKUL FOR WHOEVER TAKE HER INSURANCE. MARIELA FORD, [facility], [facility], WILL SEND REFERRAL TO [facility] I SPOKE WITH JUSTIN AT [facility] DCP- Discharge Planning Updated by [id number]: Jeny Streeter on 07/01/19 8:[address] Patient Name: ALISIA GOMES Admission Status: ER Accout number: [id number] Admission Date: 06-28-2019 : 1955 Admission Diagnosis:ENTEROCOLITIS D/T CLOSTRIDIUM DIFFICILE, NOT SPCF RE Attending: CROW GUNDERSON Current LOS: 3 Anticipated DC Date: Planned Disposition: Home or Self Care Primary Insurance: [employer]ICARE ADV Discharge Planning Comments: CM met with patient to complete initial dc planning assessment. CM educated patient on the CM role and verbal consent given by patient to complete assessment. Patient lives at home with her spouse where she states that she is independent with her care. At discharge patient plans to return home and feels this is a safe discharge. CM discussed availability of home health, rehab services, and medical equipment. She did not want home health. She stated that she has a nebulizer, walker, O2 Concentrator and portable O2 concentrator. She owns the O2 concentrators and got her Nebulizer with [employer] patient, but is not happy with them and would like to use [facility]. She is having issues with their billing. She signed a MUKUL for [facility]. She has a walker, but may need a new one? She stated that her will be her driver's license reviewing officer home at discharge. Patient denied known discharge needs at this time. CM will continue to follow and will assist as needed with dc plans/needs Filterer: Jeny Streeter DCPIA - Discharge Planning Initial Assessment Updated by [id number]: Jeny Streeter on 07/01/19 9:26 am * Is the patient Alert and Oriented? Yes * How many steps to enter\exit or inside your home? * PCP JOSE * Pharmacy [facility] * Preadmission Environment Home with Family * ADLs Independent * Equipment Nebulizer Oxygen Walker * Other Equipment O2 CONCENTRATOR * List name and contact numbers for known caregivers / representatives who currently or will assist patient after discharge: MAHAMED - SPOUSE [phone] * Verbal permission to speak to the caregivers and representatives has been obtained from the patient. N/A * Community resources currently utilized None * Additional services required to return to the preadmission environment? No * Can the patient safely return to the preadmission environment? Yes * Has this patient been hospitalized within the prior 30 days at any hospital? No External Providers External Provider: [facility] Next Contact Date: Service Request Date: Service Type: Resolution: Reviewer: Comments: External Provider: [facility] Next Contact Date: Service Request Date: Service Type: Resolution: Reviewer: Comments: Coverage Notice Reviewer: [id number] Lalit Streeter Notice Issued Date-Time: 07/01/2019 8:05 Notice Type: Patient Choice Letter Notice Delivered To: Patient Relationship to Patient: Director Sales Name: Delivery Method: HAND - Hand Delivered Ryann Days: Prior Verbal Notification: Recipient Understood Notice: Yes Recipient Signature: Yes Med Rec Note Co-signed by Attending: Coverage Notice Comment: MUKUL- [facility] REFUSAL ON [facility] PATIENT Reviewer: [id number] Lalit Streeter Notice Issued Date-Time: 07/07/2019 14:30 Notice Type: Patient Choice Letter Notice Delivered To: Patient Relationship to Patient: Director Sales Name: Delivery Method: HAND - Hand Delivered Ryann Days: Prior Verbal Notification: Recipient Understood Notice: Yes Recipient Signature: Yes Med Rec Note Co-signed by Attending: Coverage Notice Comment: [facility] KENDAL FORD Reviewer: [id number] - Jeny Streeter Notice Issued Date-Time: 07/07/2019 14:30 Notice Type: IM Discharge Notice Notice Delivered To: Patient Relationship to Patient: Director Sales Name: Delivery Method: HAND - Hand Delivered Ryann Days: Prior Verbal Notification: Recipient Understood Notice: Yes Recipient Signature: Yes Med Rec Note Co-signed by Attending: Coverage Notice Comment: Last DP export: 07/07/19 1:33 Patient Name: ALISIA GOMES Page [phone] at 1450 All edits/amendments must be made on the electronic document DICTATION DATE: 07/07/191449 BRICK STACKER: ERIK 07/07/19 1450 RPT#: [id number] DC DATE: STATUS: ADM IN [facility] [address] [place] [address] END OF REPORT
--- NOTE | 2019-07-07 15:43 | NUR ---
DISCHARGED PATIENT HOME VIA WHEELCHAIR WITH FAMILY. DISCONTINUED IV, CATHETER TIP INTACT. WENT OVER DISCHARGE INSTRUCTIONS WITH PATIENT, VERBALIZED UNDERSTANDING. DENIES ANYTHING FURTHER.
== END 2019-07-07 15:44 | disposition home health service (06) | DRG 371 ==
LOC: D.ER 11:06 → D.MS 14:28
PROVIDERS: Family Medicine; Internal Medicine Gastroenterology; ADMIT Internal Medicine Nephrology; ATTEND Internal Medicine Nephrology
PROC: 0DBE8ZX Excision of Large Intestine, Via Natural or Artificial Opening Endoscopic, Diagnostic (ICD-10-PCS; principal; 2019-07-06 15:50)
DX: A04.72 Enterocolitis due to Clostridium difficile, not specified as recurrent (principal); E43 Unspecified severe protein-calorie malnutrition; J96.11 Chronic respiratory failure with hypoxia; J44.1 Chronic obstructive pulmonary disease with (acute) exacerbation; E86.0 Dehydration; I10 Essential (primary) hypertension; I25.10 Atherosclerotic heart disease of native coronary artery without angina pectoris; I73.9 Peripheral vascular disease, unspecified; E83.52 Hypercalcemia; M32.9 Systemic lupus erythematosus, unspecified; Z68.20 Body mass index [BMI] 20.0-20.9, adult; E83.39 Other disorders of phosphorus metabolism; E83.42 Hypomagnesemia; K64.8 Other hemorrhoids

== ENCOUNTER 2019-09-11 09:04 | Outpatient (CLI) | payer MEDICARE ==
[~2019-09-11] VITALS: Ht 157.5 cm; Wt 56.8 kg
--- NOTE | ~2019-09-11 | OP ---
PATIENT NAME: ALISIA GOMES MEDICAL RECORD: [id number] :[birth year] LOCATION:D.M2 D.2114 ADMISSION DATE: SURGEON: CLARA PALACIOS MD DATE OF OPERATION: 09/11/2019 PROCEDURES: 1. LIME HIDE INSPECTOR stent left SFA. 2. Abdominal aortography. 3. Aortofemoral runoff. INDICATION: Claudication, peripheral vascular disease, limb threatening ischemia. PROCEDURE IN DETAIL: After informed consents obtained and after a detailed description of the risks, benefits as well as alternative therapies, the patient elected to proceed with angiogram and angioplasty. The right femoral area was prepped and draped in normal sterile fashion. The right femoral artery was cannulated via modified Seldinger technique with placement of a 6-Ukrainian [id number] sheath. All catheters exchanged through this sheath. FINDINGS: Abdominal aortography was performed. The catheter was pulled down for aortofemoral runoff. Abdominal aortography reveals no significant abdominal aortic disease, no dissection, or aneurysm formation. RIGHT LEG: A. Iliac: The common internal and external iliacs moderate irregularities, but no flow-limiting stenosis. B. Femoral system: The common and deep femoral are widely patent. Superficial femoral has a previously placed stent with up to 80% in-stent restenosis. C. Popliteal and infrapopliteal vessels are patent, although diffusely diseased with 3-vessel runoff to the foot. LEFT LEG: A. Iliac: The common internal and external iliacs have moderate irregularities, but no flow-limiting stenosis. B. Femoral system: The common and deep femoral are widely patent. Superficial femoral has multiple areas of greater than 90% stenosis throughout. C. Popliteal and infrapopliteal vessels are patent, although diffusely diseased, but there is 3-vessel runoff to the foot. Right LIME HIDE INSPECTOR stent of the left SFA: Multiple balloon inflations were made with a 6.0 balloon. Stenting was undertaken with a 6 x 150 and 6 x 60, both Cordis SMART stents as well there was a 6 x 59 Missy stent. Result was 0% residual stenosis. OVERALL IMPRESSION: Successful PTCA stent of the left SFA going from multiple areas of 90% initial stenosis to 0% residual. TRANSINT:[id number] Voice Confirmation ID: [id number] DOCUMENT ID: [id number] OPERATIVE REPORT [id number] ALISIA GOMES CLARA PALACIOS MD CC: [id number] DICTATION DATE: 09/11/19 1545 TIE UP WORKER: 09/11/192101 [place] [id number] [place] [id number]
--- NOTE | ~2019-09-11 | HEMODYNAMI ---
PATIENT:ALISIA GOMES MEDICAL RECORD: [id number] : 51 LOCATION:[facility] ADMISSION DATE: 09/11/19 Generatedon:09/11/201916:00 Patient name: ALISIA GOMES Patient #: [id number] SSN: [id number] : 1955 Date of study: 09/11/2019 Page: Of Hemodynamic Procedure Report Patient Data Patient Demographics Procedure consent was obtained First Name: ALISIA Gender: Female Last Name: ELISEO : 1955 Patient #: [id number] Age: 64 year(s) Race: Unknown SSN: [id number] Additional ID: [id number] Contact details [address]: [address] [place] [address] State: [place] City: [place] Zip code: [address] Past Medical History Allergies Allergen Reaction Date Comments Reported Sulfa drugs 01/17/2018 Other allergy 03/13/2019 PLAVIX, BACTRIM, SULFA Sulfa drugs 09/11/2019 Admission Admission Data Admission Date: 09/11/2019 Admission Time: 9:04 Arrival Date: 09/11/2019 Arrival Time: 0:00 Admit Source: Other Insurance Payor: Private health insurance [facility] #: [id number] Height (in.): 62 BSA: 1.44 (m2) Height (cm.): 157.48 BMI: 18.66 (kg/m2) Weight (lbs.): 102 Weight (kg.): 46.27 Lab Results Lab Result Date: 09/11/2019 Lab Result Time: 0:00 Biochemistry Name Units Result Min Max BUN mg/dl 17 --(---*)-- 7 18 Creatinine mg/dl 0.8 --(-*--)-- 0.6 1.3 eGFR ml/min 76.69275 *-(----)-- 90 120 NONAFRICAN CBC Name Units Result Min Max Hematocrit % 40.9 -*(----)-- 42 54 Hemoglobin g/dl 13.2 -*(----)-- 13.5 17.5 Procedure Procedure Types Cath Procedure Diagnostic Procedure Sedation Charges Moderate Sedation up to 30 minutes PCI Procedure Hemochron ACT Test Peripheral Cath Diagnostic Procedure Abd/Extremity Aortagram Extremities Bilat Lower Extremity Peripheral vascular Intervention Stent Stent-Fem/Popw/plasty Procedure Description Procedure Date Procedure Date: 09/11/2019 Procedure Start Time: 15:05 Procedure End Time: 15:55 Procedure Staff Name Function Andre Lanier MD Performing Physician Clotilde Sosa RT Monitor Shyann Russell RT Scrub Marco Morin RN Nurse Nani Day RN Nurse Procedure Data Cath Procedure Fluoroscopy Diagnostic fluoroscopy Total fluoroscopy Time: time: 14.8 min 14.8 min Diagnostic fluoroscopy Total fluoroscopy dose: 127 dose: 127 mGy mGy Contrast Material Contrast Material Type Amount (ml) Isovue 300 146 Entry Location Entry Primary Successful Side Size Upsize Upsize Entry Closure Succes sful Closure Location (Fr) 1 (Fr) 2 (Fr) Remarks Device Remarks Femoral Right 6 Fr 6 Fr Exoseal artery Short Long Estimated blood loss: 10 ml Diagnostic catheters Device Type Used For End Catheter Placement DIAGNOSTIC UF 5Fr Multi-vessel catheter ([id number]) Angiography Procedure Complications No complications Procedure Medications Medication Administration Route Dosage 0.9% NaCl I.V. 100 ml/hr Oxygen etCO2 Nasal cannula 2 l/min Lidocaine 2% added to field 20 Heparin Flush Bag added to field 2 bags (1000units/500ml NS) Fentanyl I.V. 50 mcg Versed I.V. 2 mg Heparin Bolus I.V. 5000 units Fentanyl I.V. 50 mcg Hemodynamics Rest BSA: 1.44 (m2) O2 Consumption: Estimated: 195.84 (ml/min) O2 Consumption indexed : Estimated:136 (ml/min/m) Pre Cath Intra NCS Post Cath Vital Signs Time Heart Resp SPO2 etCO2 NIBP (mmHg) Rhythm Pain Status Sedation Rate (ipm) (%) (mmHg) Level (bpm) 14:54:22 95 20 97 33 185/96(150) NSR 0 (11) , No 10(A) pain 14:58:42 81 17 99 36.3 154/87(118) NSR 0 (11) , No 10(A) pain 15:02:54 81 10 96 1.5 137/80(118) NSR 0 (11) , No 10(A) pain 15:07:00 76 14 95 0.7 145/84(113) NSR 0 (11) , No 10(A) pain 15:11:59 76 18 96 21.9 Measuring NSR 0 (11) , No 9(A) pain 15:12:14 75 17 96 27.2 142/80(114) NSR 0 (11) , No 9(A) pain 15:16:19 81 21 96 1.5 148/82(119) NSR 0 (11) , No 9(A) pain 15:20:33 81 16 96 21.1 142/69(111) NSR 4 (11) , 10(A) Distressing 15:24:41 80 21 96 12 148/75(120) NSR 0 (11) , No 9(A) pain 15:28:51 92 13 97 0 150/82(112) NSR 0 (11) , No 9(A) pain 15:33:03 84 18 97 0 136/79(113) NSR 0 (11) , No 9(A) pain 15:37:09 72 12 95 24.9 150/78(135) NSR 0 (11) , No 10(A) pain 15:41:17 69 12 95 27.2 156/89(113) NSR 0 (11) , No 10(A) pain 15:45:27 74 32 93 0 140/79(106) NSR 0 (11) , No 10(A) pain 15:49:34 80 28 92 24.1 132/77(105) NSR 0 (11) , No 10(A) pain 15:54:33 95 31.7 Measuring NSR 0 (11) , No 10(A) pain 15:54:54 96 29.4 152/83(121) NSR 0 (11) , No 10(A) pain Medications Time Medication Route Dose Verified Delivered Reason Notes Effectiveness by by 14:53:28 0.9% NaCl I.V. 100 Andre Wernera used for ml/hr Yolande Day hot mix operator 14:53:33 Oxygen etCO2 2 Andre Cardoza used for Nasal l/min Yolande aDy procedure cannula RN 14:53:40 Lidocaine 2% added 20ml Andre Powell for local to vial Yolande Lanier MD anesthetic field 14:53:48 Heparin Flush added 2 Andre Powell used for Bag to bags Yolande Lanier MD procedure (1000units/500ml field NS) 15:05:42 Fentanyl I.V. 50 Nani Nani for [place] [facility] [place] Day RN RN 15:05:51 Versed I.V. 2 mg Nani Nani for sedation Shay Day RN RN 15:16:59 Heparin Bolus I.V. 5000 Nani Nani for verif ied units Shay Day anticoagulation with RN RN troyrn 15:21:31 Fentanyl I.V. 50 Nani Nani for sedation [facility] [place]ay Day RN manager intensive care unit Log Time Note 14:24:26 Informed consent obtained and on chart 14:25:32 Procedure Status Elective Heart Cath (OP). 14:25:34 Time tracking: Regular hours (M-F 7:00 - 5:00) 14:25:37 Plan of Care:Hemodynamics will remain stable., Cardiac rhythm will remain stable., Comfort level will be maintained., Respiratory function will remain adequate., Patient/ family verbilizes understanding of procedure., Procedure tolerated without complication., Recovers from procedure without complications.. 14:26:00 H&P Date Dictated: 09/10/2019 Within 30 days and on chart., H&P Addendum completed by physician on day of procedure. (MUST COMPLETE FOR ALL OUTPATIENTS). 14:26:18 Patient allergic to Sulfa drugs 14:27:14 Patient Weight : 102 lbs 14:27:17 Patient Height : 62 inches 14:33:44 Arrival Date: 09/11/2019 12:00:00 AM 14:33:53 Insurance Payor : Private health insurance 14:35:52 Lab Result : Creatinine 0.8 mg/dl 14:35:52 Lab Result : BUN 17 mg/dl 14:35:52 Lab Result : eGFR NONAFRICAN 76.72726 ml/min 14:35:52 Lab Result : Hematocrit 40.9 % 14:35:52 Lab Result : Hemoglobin 13.2 g/dl 14:36:13 Pre-procedure instructions explained to patient. 14:36:13 Pre-op teaching completed and patient verbalized understanding. 14:36:16 Family in waiting room. 14:36:17 Patient NPO since Midnight. 14:36:22 Alarms reviewed by RJose Francisco N. 14:36:22 Sharps counted by scrub and verified by R.N. 14:36:27 Stress Test: no; N/A ? 14:36:30 Lab results completed and on chart. 14:36:36 Admit Source: Other 14:37:05 Shyann Russell RT(R) (CV) sent for patient. Start room use. 14:43:31 Patient received from Pre/Post Procedure Room to CCL 2 Alert and oriented. Tansferred to table in Supine position. 14:43:33 Warm blankets applied, and elvia hugger turned on for patient comfort. 14:43:33 Correct patient and procedure confirmed by team. 14:43:34 ECG and BP/O2 sat monitors applied to patient. 14:43:42 Is the patient allergic to Iodine/contrast media? No. 14:43:44 Was the patient premedicated? N/A 14:53:20 Vital chart was started 14:53:21 Is patient on blood thinner?Yes 14:53:25 ACC The patient was administered the following blood thiners within the last 24 hours: ACCEffient 14:53:27 Patient diabetic? No. 14:53:28 0.9% NaCl 100 ml/hr I.V. was administered by Nani Day RN; used for procedure; Verbal order read back and verified. 14:53:29 If diabetic: On Metformin? N/A 14:53:30 Patient not . Patient is over age 55. 14:53:31 ----Pre-sedation anethsthesia assessment.---- 14:53:33 Oxygen 2 l/min etCO2 Nasal cannula was administered by Nani Day RN; used for procedure; Verbal order read back and verified. 14:53:34 Previous problem with sedation/anesthesia? No ? 14:53:36 Snore? Yes 14:53:37 Sleep apnea? No 14:53:38 Deviated septum? No 14:53:39 Opens mouth fully? Yes 14:53:40 Lidocaine 2% 20ml vial added to field was administered by Andre Lanier MD; for local anesthetic; Verbal order read back and verified. 14:53:40 Sticks out tongue? Yes 14:53:46 Airway obstruction? Yes COPD 14:53:48 Heparin Flush Bag (1000units/500ml NS) 2 bags added to field was administered by Andre Lanier MD; used for procedure; Verbal order read back and verified. 14:53:53 Dentures? Yes BOTTOM-TIGHT 14:53:59 Pre procedure: right dorsailis pedis pulse 1+ Palpable, but thready & weak; easily obliterated 14:54:02 Patient pain scale 0/10 ?. 14:54:09 IV patent on arrival in left antecubital with 0.9% NaCl at [facility]. 14:54:17 Bilateral groins area was prepped with chlora-prep and draped in sterile fashion 14:54:21 Use device set Femoral Dx 14:54:22 ACIST Syringe (94061) opened to sterile field. 14:54:23 Bag Decanter (2002S) opened to sterile field. 14:54:24 Medline Cath Pack ([id number]) opened to sterile field. 14:54:26 ACIST Hand Control (29351) opened to sterile field. 14:54:26 ACIST Manifold (94295) opened to sterile field. 14:54:29 EMERALD Guide Wire (835-820) opened to sterile field. 14:54:36 SHEATH 6FR [place] ([id number]) opened to sterile field. 15:03:56 Physician arrived 15:03:56 --------ALL STOP TIME OUT------ 15:03:56 Final Timeout: patient, procedure, and site verified with staff and physician. All members of the team are in agreement. 15:04:03 Right groin site verified by team. 15:04:07 Fire Safety Assessment: A--An alcohol-based skin anteseptic being used preoperatively., C--Open oxygen or nitrous oxide is being used., D--An ESU, laser, or fiber-optic light is being used. 15:04:37 Physical assessment completed. ASA score P 2 - A patient with mild systemic disease as per Andre Lanier MD. 15:04:47 Maximum allowable contrast dose (3.7 X eGFR X 0.75)211 ml. 15:04:51 2) 60-89 Mildly reduced kidney function, and other findings (as for stage 1) point to kidney disease. 15:04:54 Sedation plan: IV Moderate Sedation Medication:Versed, Fentanyl 15:04:58 Procedure started. 15:04:58 Full Disclosure recording started 15:05:02 Local anesthetic to right femoral artery with Lidocaine 2% by Andre Lanier MD.INITIAL ACCESS ONLY 15:05:11 A 6 Fr Short sheath was inserted into the Right Femoral artery 15:05:42 Fentanyl 50 mcg I.V. was administered by Nani Day RN; for sedation; Verbal order read back and verified. 15:05:51 Versed 2 mg I.V. was administered by Nani Day RN; for sedation; Verbal order read back and verified. 15:06:54 A DIAGNOSTIC UF 5Fr catheter ([id number]) was advanced over the wire and used for Multi-vessel Angiography. 15:07:25 Abdominal angiogram w/ runoff was performed. 15:07:32 Injector settings: Ml/sec: 10, Volume: 20, 15:08:26 TORQUE DEVICE PLASTIC .038 ( TD01) opened to sterile field. 15:09:40 SHEATH 6FR Destination (RSR01) opened to sterile field. 15:10:39 Sheath upsized to a 6 Fr Long. 15:15:13 INFLATOR Merit BasixCompak (UD6938) opened to sterile field. 15:15:14 CHOICE PT Extra Support 182cm wire ([id number]) opened to sterile field. 15:15:14 GLIDE WIRE .035 180CM STRAIGHT (KR7844) opened to sterile field. 15:16:59 Heparin Bolus 5000 units I.V. was administered by Nani Day RN; for anticoagulation; verified with rasheed simmons Verbal order read back and verified. 15:19:09 Wire advanced across lesion. 15:19:21 STRAIGHT GLIDE CATH REMOVED OVER WIRE 15:19:38 Inflate balloon Inflation number: 1 A POWERFLEX PRO 6.0 X 20 X 135 balloon ([id number]) was prepped and advanced across the Mid Common Femoral, Left , then inflated to 9 WIN for 0:00 (min:sec) . 15:19:40 MULTIPLE INFLATIONS AT 9 ATMS WITH POWERFLEX 15:21:31 Fentanyl 50 mcg I.V. was administered by Nani Dya RN; for sedation; Verbal order read back and verified. 15:21:41 SMART 6 X 150 X 120 stent ([id number]) was deployed across Mid Common Femoral, Left . 15:22:12 STENT removed over the wire. 15:26:17 Inflation number: 4 The POWERFLEX PRO 6.0 X 20 X 135 balloon ([id number]) was reinflated across the Mid Common Femoral, Left , to 9 WIN for 0:00 (min:sec) . 15:26:20 Inflation number: 5 The POWERFLEX PRO 6.0 X 20 X 135 balloon ([id number]) was reinflated across the Mid Common Femoral, Left , to 6 WIN for 0:00 (min:sec) . 15:26:47 Balloon removed over the wire. 15:28:08 Inflation number: 6 The POWERFLEX PRO 6.0 X 20 X 135 balloon ([id number]) was reinflated across the Mid Common Femoral, Left , to 9 WIN for 0:00 (min:sec) . 15:28:18 Inflation number: 7 The POWERFLEX PRO 6.0 X 20 X 135 balloon ([id number]) was reinflated across the Mid Common Femoral, Left , to 9 WIN for 0:00 (min:sec) . 15:28:27 Inflation number: 8 The POWERFLEX PRO 6.0 X 20 X 135 balloon ([id number]) was reinflated across the Mid Common Femoral, Left , to 13 WIN for 0:00 (min:sec) . 15:29:03 Balloon removed over the wire. 15:31:48 SMART 6 X 60 X 120 stent ([id number]) was deployed across Mid Common Femoral, Left . 15:33:09 ACT drawn and resulted at >400- out of range hi seconds. (normal therapeutic range 180-240 seconds). 15:36:11 Stent catheter was removed intact over wire. 15:36:49 Place stent Inflation Number: 2 A YUKO 6 x 59 x 135 stent ([id number]) was prepped and advanced across the Mid Common Femoral, Left . The stent was deployed at 13 WIN for 0:00 (min:sec) . 15:36:57 Inflation number: 3 The stent balloon was then re-inflated across the Mid Common Femoral, Left to 13 WIN for 0:00 (min:sec) . 15:37:33 Stent catheter was removed intact over wire. 15:38:02 Wire removed. 15:38:23 LONG SHEATH REMOVED AROUND THE HORN. EXCHANGED FOR A SHORT SHEATH 15:38:41 EXOSEAL 6Fr (EX600) opened to sterile field. 15:39:55 Sheath removed intact; hemostasis achieved with Exoseal to the Right Femoral artery. 15:39:56 Procedure ended.(Physican Out) 15:49:25 Fluoroscopy time 14.80 minutes. 15:49:28 Flurop Dose total: 127 15:49:28 Fluoroscopy dose: 127 mGy 15:49:32 Dose Area Product 59839 mGy/cm. 15:49:45 Contrast amount:Isovue 300 146ml. 15:49:47 Maximum allowable dose exceeded? No. 15:49:48 Sharps counted by scrub and verified by R.N. 15:49:52 Post-op/insertion site Right Femoral artery dressed using a 4 x 4 and Tegaderm. 15:49:57 Post-procedure physical assessment completed. ASA score P 2 - A patient with mild systemic disease as per Andre Lanier MD. 15:50:02 Post procedure rhythm: sinus rhythm 15:50:04 Estimated blood loss: 10 ml 15:50:05 Post procedure instruction explained to patient.Patient verbalizes understanding. 15:50:05 Patient needs reinforcement of post procedure teaching. 15:52:59 Procedure type changed to Cath procedure, Diagnostic procedure, Sedation Charges, Moderate Sedation up to 30 minutes, PCI procedure, Hemochron ACT Test, Peripheral Cath Diagnostic Procedure, Abd/Extremity, Aortagram, Extremities, Bilat Lower Extremity, Peripheral vascular Intervention, Stent, Stent-Fem/Popw/plasty 15:54:25 Procedure and supply charges have been captured, reviewed, submitted and are correct. 15:54:30 Procedure Complication : No complications 15:54:38 Femstop placed over the right femoral artery at 150 mmHg. Hemostasis achieved. 15:54:40 Vital chart was stopped 15:54:46 AFRO Findings: PVD: URINALYSIS TECHNICIAN performed (see procedure notes) 15:54:47 Operative report dictated upon procedure completion. 15:54:48 See physician's report for complete and final results. 15:55:23 Report given to Pre/Post Procedure Room. 15:55:26 Patient transfered to Pre/Post Procedure Room with Bed. 15:55:31 Procedure ended. 15:55:31 Full Disclosure recording stopped 15:56:10 End room use (Document Last) 15:59:25 ACC-PCI Only Patient was given prescriptions, or instructed by Andre Lanier MD to start/continue the following medications upon discharge: Effient Intervention Summary Intervention Notes Time ActionType Lesion and Equipment Action# Pressure Duration Attributes Used 15:19:38 Inflate Mid Common POWERFLEX 1 9 00:00 balloon Femoral, PRO 6.0 X Left 20 X 135 balloon ([id number]) 15:21:41 Deploy self Mid Common SMART 6 X 1 expanding Femoral, 150 X 120 stent Left stent ([id number]) 15:26:17 Reinflate Mid Common POWERFLEX 4 9 00:00 balloon Femoral, PRO 6.0 X Left 20 X 135 balloon ([id number]) 15:26:20 Reinflate Mid Common POWERFLEX 5 6 00:00 balloon Femoral, PRO 6.0 X Left 20 X 135 balloon ([id number]) 15:28:08 Reinflate Mid Common POWERFLEX 6 9 00:00 balloon Femoral, PRO 6.0 X Left 20 X 135 balloon ([id number]) 15:28:18 Reinflate Mid Common POWERFLEX 7 9 00:00 balloon Femoral, PRO 6.0 X Left 20 X 135 balloon ([id number]) 15:28:27 Reinflate Mid Common POWERFLEX 8 13 00:00 balloon Femoral, PRO 6.0 X Left 20 X 135 balloon ([id number]) 15:31:48 Deploy self Mid Common SMART 6 X 1 expanding Femoral, 60 X 120 stent Left stent ([id number]) 15:36:49 Place stent Mid Common YUKO 6 x 2 13 00:00 Femoral, 59 x 135 Left stent ([id number]) 15:36:57 Reinflate Mid Common YUKO 6 x 3 13 00:00 stent Femoral, 59 x 135 balloon Left stent ([id number]) Device Usage Item Name Manufacture Quantity Catalog Number Hospital Part Current Minim al Lot# / Charge Number Stock Stock Serial# Code ACIST Acist 1 31289 888139 236782 706079 20 Syringe Medical (15639) Systems Inc Bag Microtek 1 856809 10798 619910 5 Decanter Medical Inc. () Medline Medline 1 [id number] 045785 67288 109280 5 Cath Pack ([id number]) ACIST Hand Acist 1 99831 383778 468373 245328 5 Control Medical (94078) Systems Inc ACIST Acist 1 61247 460771 013106 408074 5 Manifold Medical (37277) Systems Inc EMERALD Cardinal 1 502-455 499912 830348 201065 5 Guide Wire Health (502-455) SHEATH 6FR Terumo 1 DFM206 965496 376590 434557 40 [place] (KJZ975) DIAGNOSTIC Cardinal 1 [id number] 603971 984945 335727 10 UF 5Fr Health catheter (396562U7) TORQUE [place] 1 TD01 867437 693523 087036 5 DEVICE Scientific PLASTIC .038 ( TD01) SHEATH 6FR Terumo 1 RSR01 622043 04950 160469 5 Destination (RSR01) INFLATOR Merit 1 IO1339 832691 344300 177984 15 Track the Bet Medical BasixCompak (SB9689) CHOICE PT [place] 1 [id number] 499294 409503 287071 5 Extra Scientific Support 182cm wire ([id number]) GLIDE WIRE Terumo 1 HZ5777 191515 421796 5 .035 180CM STRAIGHT (YG4533) SMART 6 X Cardinal 1 [id number] 099969 870361 137311 0 150 X 120 Health stent ([id number]) SMART 6 X Cardinal 1 [id number] 908883 685586 868126 0 60 X 120 Health stent ([id number]) POWERFLEX Cardinal 1 [id number] 692426 625595 910103 5 PRO 6.0 X Health 20 X 135 balloon ([id number]) YUKO 6 x Cardinal 1 [id number] 729646 52627 905096 5 59 x 135 Health stent ([id number]) EXOSEAL 6Fr Cardinal 1 EX600 402100 191569 373625 10 (EX600) Health Signature Audit Rattan Stage Time Signature Unsigned Intra-Procedure 09/11/2019 Clotilde Sosa 3:59:37 PM RT(R) Intra-Procedure 09/11/2019 Nani Day 4:00:02 PM RN Intra-Procedure 09/11/2019 Andre Lanier 4:00:27 PM Signatures Performing Physician : Signature : Andre Lanier MD Date : Time : Monitor : Clotilde Young Signature : RT Date : Time : Nurse : Marco Morin RN Signature : Date : Time : Nurse : Nani Shay RN Signature : Date : Time : [address] [place] [address]
[~2019-09-11 09:04] MED LIST changes: +FLAGYL500 MG PO; +IPRAT-ALBUT 0.5-3 ML IH; +LOPRESSOR25 MG PO
[2019-09-11] MEDS ORDERED: EFFIENT10 MG PO (09:31)
[2019-09-11 09:45] VITALS: BP 186/85; BMI 18.7
[2019-09-11 09:50] LABS: BASOPHILS 0.3 % (0-2); EOSINOPHILS 2.2 % (0-7); HEMATOCRIT 40.9 % (36.0-48.0); HEMOGLOBIN 13.2 g/dL (12-16); IMMATURE GRANULOCYTES 0.1 % (0-5); LYMPHOCYTES 23.3 % (15-50); MCH 29.9 pg (26.0-34.0); MCHC 32.3 g/dL (31.0-37.0); MCV 92.7 fL (80.0-100.0); MEAN PLATELET VOLUME 9.6 fL (7.4-10.4); MONOCYTES 7.5 % (2-11); NEUTROPHILS 66.6 % (40-80); PLATELET COUNT 340 10x3/uL (130-400); RBC 4.41 10x6/uL (4.00-5.40); WBC 6.9 10x3/uL (4.8-10.8)
[2019-09-11 10:13] LABS: ALT (SGPT) 19 U/L (10-68); CALC OSMOLALITY 282 mosm/kg (275-300); CALCIUM 9.5 mg/dL (8.5-10.1); CARBON DIOXIDE 31.7 mmol/L (21.0-32.0); CHLORIDE - SERUM 102 mmol/L (98-107); CHOLESTEROL, TOTAL 252 mg/dL (0-200); CREATININE - SERUM 0.8 mg/dL (0.6-1.3); GLUCOSE 102 mg/dL (74-106); HDL CHOLESTEROL 83 mg/dL (32-96); LDL CHOLESTEROL 145 mg/dL (0-100); LDL-HDL RATIO 1.7 ratio (1.5-3.5); POTASSIUM - SERUM 3.4 mmol/L (3.5-5.1); SODIUM 141 mmol/L (136-145); TRIGLYCERIDE 121 mg/dL (30-200); UREA NITROGEN 17 mg/dL (7-18); eGFR NON AFRICAN AMERICAN 76 mL/min (90-120)
--- NOTE | 2019-09-11 14:50 | NUR ---
NEW PATIENT ADMIT FROM ROLL PLUGGER VIA STRETCHER ACCOMPANIED BY ROLL PLUGGER PERSONNEL AND FAMILY MEMBERS. PATIENT IS AWAKE, ALERT AND SLEEPY. PATIENT HAS O2 NC 2L. RT GROIN WITH HEMATOMA AND FEM STOP IN PLACE. PATIENT HAS NO PALPABLE PULSES BUT HAS DOPPLER PULSES. IV NS AT 100. WILL CONTINUE TO MONITOR PATIENT. SR UP X 2 BED IN LOW POSITION AND CALL LIGHT IN REACH.
[2019-09-11 18:27] VITALS: BP 132/78; Ht 157.5 cm; Wt 56.8 kg
[2019-09-11 20:30] VITALS: BP 145/61
--- NOTE | 2019-09-11 20:40 | NUR ---
FEMSTOP REMOVED. NO SIGN OF BLEEDING. HEMATOMA UNCHANGED. NO BRUISING. NO S/S OF DISTRESS. PATIENT C/O DISCOMFORT. PATIENT REFUSED PAIN MEDICATION. FAMILY AT BEDSIDE. CALL LIGHT WITHIN REACH. WILL CPOC.
[2019-09-12 00:30] VITALS: BP 121/63
[2019-09-12 04:30] VITALS: BP 132/62
[2019-09-12 08:21] VITALS: BP 120/58
--- NOTE | 2019-09-12 08:45 | NUR ---
GROIN STABLE. IV AND TELEMETRY DCD. DC PLANS GIVEN. UNDERSTANDING VOICED. ESCORTED TO CAR BY W/C.
== END 2019-09-12 08:45 | disposition home or self-care (01) ==
LOC: D.CATH 09:04 → D.M2 16:17 → D.CATH 09-12 08:45
PROVIDERS: ATTEND Internal Medicine Interventional Cardiology
DX: I25.10 Atherosclerotic heart disease of native coronary artery without angina pectoris (principal); I10 Essential (primary) hypertension; I73.9 Peripheral vascular disease, unspecified; I99.8 Other disorder of circulatory system

== ENCOUNTER 2019-10-21 15:33 | Inpatient (IN) | payer MEDICARE ==
[~2019-10-21] VITALS: Ht 157.5 cm; Wt 49.9 kg
[2019-10-21 17:12] LABS: BASOPHILS 0.4 % (0-2); EOSINOPHILS 9.6 % (0-7); HEMATOCRIT 40.4 % (36.0-48.0); HEMOGLOBIN 12.4 g/dL (12-16); IMMATURE GRANULOCYTES 0.1 % (0-5); LYMPHOCYTES 36.5 % (15-50); MCHC 30.7 g/dL (31.0-37.0); MCV 94.6 fL (80.0-100.0); MEAN PLATELET VOLUME 9.3 fL (7.4-10.4); MONOCYTES 14.8 % (2-11); NEUTROPHILS 38.6 % (40-80); PLATELET COUNT 291 10x3/uL (130-400); RBC 4.27 10x6/uL (4.00-5.40); RDW 12.8 % (11.5-14.5); WBC 6.9 10x3/uL (4.8-10.8)
[2019-10-21 17:19] LABS: APTT 24.6 SECONDS (22.8-39.4); INR 0.96 (0.85-1.17); PROTIME 12.8 SECONDS (11.6-15.0)
[2019-10-21 17:46] LABS: ALBUMIN 3.4 g/dL (3.4-5.0); ALKALINE PHOSPHATASE 71 U/L (30-120); ALT (SGPT) 14 U/L (10-68); BILIRUBIN - TOTAL 0.31 mg/dL (0.2-1.3); C-REACTIVE PROTEIN 2.5 mg/dL (0.0-0.9); CALCIUM 8.9 mg/dL (8.5-10.1); CARBON DIOXIDE 32.1 mmol/L (21.0-32.0); CHLORIDE - SERUM 97 mmol/L (98-107); CKMB 1.3 U/L (0.0-3.6); CREATINE KINASE 50 UL (21-215); CREATININE - SERUM 0.7 mg/dL (0.6-1.3); FERRITIN 65 ng/mL (3-244); PRO BNP 246 pg/mL (0-125); PROTEIN - SERUM 7.4 g/dL (6.4-8.2); SODIUM 137 mmol/L (136-145); UREA NITROGEN 10 mg/dL (7-18); eGFR NON AFRICAN AMERICAN 89 mL/min (90-120)
[2019-10-21 17:49] LABS: CALC OSMOLALITY 278 mosm/kg (275-300); GLUCOSE 215 mg/dL (74-106); TROPONIN-I < 0.017 ng/mL (0.000-0.060)
[2019-10-21 17:53] LABS: POTASSIUM - SERUM 2.8 mmol/L (3.5-5.1)
--- NOTE | 2019-10-21 19:05 | NUR ---
PT ASSISTED UP TO BEDSIDE COMMODE. PT TOLERATED WELL. DENIES ANY FURTHER NEEDS AT THIS TIME. CALL LIGHT WITHIN REACH. WILL CONTINUE TO MONITOR.
[2019-10-22 05:48] LABS: CALC OSMOLALITY 279 mosm/kg (275-300); CALCIUM 8.8 mg/dL (8.5-10.1); CARBON DIOXIDE 29.3 mmol/L (21.0-32.0); CHLORIDE - SERUM 100 mmol/L (98-107); CREATININE - SERUM 0.7 mg/dL (0.6-1.3); MAGNESIUM - SERUM 1.1 mg/dL (1.8-2.4); PHOSPHOROUS 3.8 mg/dL (2.5-4.9); POTASSIUM - SERUM 3.5 mmol/L (3.5-5.1); SODIUM 139 mmol/L (136-145); UREA NITROGEN 12 mg/dL (7-18); eGFR NON AFRICAN AMERICAN 89 mL/min (90-120)
[2019-10-22 05:49] LABS: GLUCOSE 132 mg/dL (74-106)
[2019-10-22 10:04] VITALS: BMI 20.1
[2019-10-22 10:31] LABS: HEMATOCRIT 38.7 % (36.0-48.0); MCH 28.8 pg (26.0-34.0); MEAN PLATELET VOLUME 9.6 fL (7.4-10.4); PLATELET COUNT 328 10x3/uL (130-400); RBC 4.16 10x6/uL (4.00-5.40); RDW 12.8 % (11.5-14.5); WBC 2.4 10x3/uL (4.8-10.8)
[2019-10-22 13:42] VITALS: Ht 157.5 cm; Wt 49.9 kg
[2019-10-22 13:46] LABS: ANISOCYTOSIS OCC; LYMPHOCYTES 25 % (15-50); MONOCYTES 4 % (2-11); NEUTROPHILS 71 % (40-80); PLATELET ESTIMATE INCREASED; PLATELET MORPHOLOGY PLT CLUMPS PRESENT
[2019-10-22 17:37] VITALS: BP 180/92
[2019-10-22 20:18] VITALS: BP 159/76
[2019-10-23 04:31] LABS: BASOPHILS 0 % (0-2); EOSINOPHILS 0.9 % (0-7); HEMATOCRIT 40.3 % (36.0-48.0); IMMATURE GRANULOCYTES 1.2 % (0-5); LYMPHOCYTES 8.3 % (15-50); MCH 28.3 pg (26.0-34.0); MCHC 29.8 g/dL (31.0-37.0); MEAN PLATELET VOLUME 9.7 fL (7.4-10.4); NEUTROPHILS 86.6 % (40-80); PLATELET COUNT 332 10x3/uL (130-400); RBC 4.24 10x6/uL (4.00-5.40); RDW 12.9 % (11.5-14.5)
[2019-10-23 05:04] LABS: CALC OSMOLALITY 284 mosm/kg (275-300); CALCIUM 9.2 mg/dL (8.5-10.1); CARBON DIOXIDE 34.7 mmol/L (21.0-32.0); CHLORIDE - SERUM 101 mmol/L (98-107); CREATININE - SERUM 0.7 mg/dL (0.6-1.3); GLUCOSE 160 mg/dL (74-106); PHOSPHOROUS 3.2 mg/dL (2.5-4.9); POTASSIUM - SERUM 3.8 mmol/L (3.5-5.1); SODIUM 140 mmol/L (136-145); eGFR NON AFRICAN AMERICAN 89 mL/min (90-120)
[2019-10-23 05:05] LABS: MAGNESIUM - SERUM 2.2 mg/dL (1.8-2.4); UREA NITROGEN 20 mg/dL (7-18)
--- NOTE | 2019-10-23 09:00 | NUR ---
PT RECEIVED AWAKE AND ALERT, SITTING IN BED PLAYING ON PHONE. PULSE OX 100% ON 3 LITERS, WEANED TO BASELINE 2 LITERS.
[2019-10-23 09:19] VITALS: BP 163/74
[2019-10-23 12:13] VITALS: BP 195/92
--- NOTE | 2019-10-23 12:48 | NUR ---
PT WAS CV-19 TESTED [facility] PRIOR TO HOSPITALIZATION. TESTED ON 10/20 AND NO RESULTS BACK YET. NUMBER TO CALL FOR RESULTS IS [phone]. SPOKE WITH LIGIA IN DR GARCIA OFFICE.
[2019-10-23] MEDS ORDERED: ZITHROMAX250 MG PO (15:20)
--- NOTE | 2019-10-24 13:13 | MORECARE ---
CASE MANAGEMENT DISCHARGE SUMMARY PATIENT: ALISIA GOMES UNIT: [id number] ADM DATE: 10/21/19 AGE: 64 : 51 SEX: F ROOM/BED: D.2132 AUTHOR: MILES FREIRE PHYSICIAN: REFERRING PHYSICIAN: CROW GUNDERSON MD DATE OF SERVICE: 10/24/19 Discharge Plan Patient Name: ALISIA GOMES Facility: [facility]:[place] : 1955 Planned Disposition: Anticipated Discharge Date: Discharge Date: 10/23/2019 Expected LOS: 0 Initial Reviewer: [email or web address] Initial Review Date: 10/24/2019 Generated: 10/24/19 2:12 pm Patient Name: ALISIA GOMES Page 62410 at 1313 All edits/amendments must be made on the electronic document DICTATION DATE: 10/24/19 1312 3D MODELER: [email or web address] 10/24/19 1312 RPT#: [id number] DC DATE:10/23/19 STATUS: DIS [facility] [address] [place] [address] END OF REPORT
== END 2019-10-23 18:27 | disposition home or self-care (01) | DRG 189 ==
LOC: D.ER 15:33 → D.M2 20:52 → D.MS 20:52 → D.M2 10-22 01:30
PROVIDERS: Family Medicine; ADMIT Internal Medicine Nephrology; ATTEND Internal Medicine Nephrology
DX: J96.22 Acute and chronic respiratory failure with hypercapnia (principal); J96.21 Acute and chronic respiratory failure with hypoxia; Z99.81 Dependence on supplemental oxygen; I10 Essential (primary) hypertension; K21.9 Gastro-esophageal reflux disease without esophagitis; E87.6 Hypokalemia; R73.9 Hyperglycemia, unspecified; L93.0 Discoid lupus erythematosus; J43.9 Emphysema, unspecified

== ENCOUNTER → 2019-11-26 08:48 | Outpatient (CLI) | payer MEDICARE ==
[2019-10-22 13:42] VITALS: BMI 20.1
[~2019-11-26 08:48] MED LIST changes: +ZITHROMAX250 MG PO
== END | disposition home or self-care (01) ==
LOC: D.CT 08:48
PROVIDERS: ATTEND Internal Medicine Cardiovascular Disease
DX: I70.213 Atherosclerosis of native arteries of extremities with intermittent claudication, bilateral legs (principal); I73.9 Peripheral vascular disease, unspecified

== ENCOUNTER → 2020-01-05 08:01 | Outpatient (CLI) | payer MEDICARE ==
[2019-10-22 13:42] VITALS: BMI 20.1
== END | disposition home or self-care (01) ==
LOC: D.HCCARDIO 08:01
PROVIDERS: ATTEND Internal Medicine Cardiovascular Disease
DX: R06.09 Other forms of dyspnea (principal)

== ENCOUNTER 2020-09-08 09:42 | Emergency (ER) | payer MEDICARE ==
[~2020-09-08] VITALS: Ht 157.5 cm; Wt 44.1 kg
[2020-09-08 09:49] VITALS: Ht 157.5 cm; Wt 44.1 kg
[2020-09-08] MEDS ORDERED: NORFLEX100 MG PO (11:12)
[2020-09-08 11:21] VITALS: BP 143/59
== END 2020-09-08 11:35 | disposition home or self-care (01) ==
LOC: D.ER 09:42
DX: S39.012A Strain of muscle, fascia and tendon of lower back, initial encounter (principal); I10 Essential (primary) hypertension; J44.9 Chronic obstructive pulmonary disease, unspecified; K21.9 Gastro-esophageal reflux disease without esophagitis; X50.0XXA Overexertion from strenuous movement or load, initial encounter; Y93.9 Activity, unspecified; Y92.9 Unspecified place or not applicable